=== PATIENT | male | born 1975 | race Caucasian/White ===

== ENCOUNTER → 2023-12-17 08:59 | Outpatient (REF) | payer OTHER, SELFPAY ==
[2023-12-17 12:06] LABS: % Basophils 0.6 % (0-2); % Eosinophils 1.3 % (0-6); % Immature Granulocytes 0.2 % (0-0.5); % Monocytes 7.5 % (1.7-9.3); % Neutrophils 69.4 % (42.2-75.2); Absolute Basophils 0.1 10^3/uL (0-0.2); Absolute Eosinophils 0.1 10^3/uL (0-0.7); Absolute Monocytes 0.7 10^3/uL (0.1-0.6); Absolute Neutrophils 6.7 10^3/uL (1.4-6.5); Hematocrit 48.4 % (39.0-52.0); Mean Corp Hgb Conc. 35.1 g/dL (33.0-37.0); Mean Corpuscular Hgb 31.7 pg (27.0-31.0); Mean Corpuscular Volume 90.3 fL (80.0-94.0); Mean Platelet Volume 9.7 fL (7.4-10.4); Nucleated Red Blood Cells % 0 % (-); Platelet Count 270 10^3/uL (130-400); Red Blood Cell Count 5.36 10^6/uL (4.70-6.10); Red Cell Dist. Width 11.9 % (11.5-14.5); White Blood Cell Count 9.6 10^3/uL (4.8-10.8)
[2023-12-17 12:21] LABS: ALT (SGPT) < 10 U/L (0-50); AST (SGOT) 24 U/L (17-59); Albumin 4.5 g/dl (3.5-5.0); Alkaline Phosphatase 154 U/L (38-126); Blood Urea Nitrogen 20 mg/dl (9-20); Calcium 10.1 mg/dl (8.4-10.2); Carbon Dioxide 25 mmol/L (22-30); Chloride 103 mmol/L (98-107); Glucose 193 mg/dl (70-99); HDL Cholesterol 36 mg/dl; Potassium 4.3 mmol/L (3.5-5.1); Sodium 139 mmol/L (135-145); Total Protein 7.3 g/dl (6.3-8.2); Triglyceride 138 mg/dl (10-149); Very Low Density Lipoprotein 27 mg/dl (0-30); eGFR > 60.00
[2023-12-17 12:23] LABS: Glycohemoglobin (HgbA1c) 8.2 % (4.0-5.6)
[2023-12-17 12:28] LABS: LDL Cholesterol, Calculated 15 mg/dl; Total Cholesterol 78 mg/dl (50-199)
[2023-12-17 12:47] LABS: TSH Reflex To Free T4 1.16 uIU/ml (0.47-4.68)
[2023-12-17 13:05] LABS: Vitamin B12 987 pg/ml (239-931)
== END ==
LOC: HWLAB 08:59
PROVIDERS: ATTENDING PHYSICIAN Internal Medicine Interventional Cardiology; FAMILY PHYSICIAN Family Medicine; REFERRING PHYSICIAN Nurse Practitioner Family
DX: E78.2 Mixed hyperlipidemia (principal); I25.10 Atherosclerotic heart disease of native coronary artery without angina pectoris; K76.0 Fatty (change of) liver, not elsewhere classified; G47.33 Obstructive sleep apnea (adult) (pediatric); E10.8 Type 1 diabetes mellitus with unspecified complications
CPT/HCPCS: 36415; 80053; 80061; 82607; 83036; 84443; 85025

== ENCOUNTER → 2024-07-22 08:56 | Outpatient (REF) | payer OTHER, SELFPAY ==
[2024-07-22 12:35] LABS: % Basophils 0.6 % (0-2); % Eosinophils 1.4 % (0-6); % Immature Granulocytes 0.4 % (0-0.5); % Lymphocytes 26.6 % (20.5-51.1); % Monocytes 8.3 % (1.7-9.3); % Neutrophils 62.7 % (42.2-75.2); Absolute Basophils 0.1 10^3/uL (0-0.2); Absolute Eosinophils 0.1 10^3/uL (0-0.7); Absolute Lymphocytes 2.1 10^3/uL (1.2-3.4); Absolute Monocytes 0.7 10^3/uL (0.1-0.6); Absolute Neutrophils 5.1 10^3/uL (1.4-6.5); Hematocrit 50.7 % (39.0-52.0); Hemoglobin 16.9 g/dL (13.0-18.0); Mean Corp Hgb Conc. 33.3 g/dL (33.0-37.0); Mean Corpuscular Hgb 31.1 pg (27.0-31.0); Mean Corpuscular Volume 93.2 fL (80.0-94.0); Mean Platelet Volume 9.8 fL (7.4-10.4); Nucleated Red Blood Cells % 0 % (-); Platelet Count 271 10^3/uL (130-400); Red Blood Cell Count 5.44 10^6/uL (4.70-6.10); White Blood Cell Count 8.1 10^3/uL (4.8-10.8)
[2024-07-22 12:40] LABS: ALT (SGPT) < 10 U/L (0-50); AST (SGOT) 22 U/L (17-59); Albumin 4.4 g/dl (3.5-5.0); Alkaline Phosphatase 141 U/L (38-126); Blood Urea Nitrogen 20 mg/dl (9-20); Calcium 9.4 mg/dl (8.4-10.2); Carbon Dioxide 28 mmol/L (22-30); Glucose 132 mg/dl (70-99); HDL Cholesterol 44 mg/dl; LDL Cholesterol, Calculated 50 mg/dl; Potassium 4.3 mmol/L (3.5-5.1); Sodium 140 mmol/L (135-145); Total Bilirubin 1.2 mg/dl (0.2-1.3); Total Cholesterol 117 mg/dl (50-199); Total Protein 7.2 g/dl (6.3-8.2); Triglyceride 119 mg/dl (10-149); Uric Acid 4.9 mg/dl (3.5-8.5); Very Low Density Lipoprotein 23 mg/dl (0-30); eGFR > 60.00
[2024-07-22 12:59] LABS: Vitamin D, 25-OH*** 31.8 ng/mL (30-80)
[2024-07-22 13:03] LABS: Glycohemoglobin (HgbA1c) 8.1 % (4.0-5.6)
[2024-07-22 13:07] LABS: Chloride 102 mmol/L (98-107)
[2024-07-22 13:12] LABS: TSH Reflex To Free T4 2.19 uIU/ml (0.47-4.68)
[2024-07-22 13:28] LABS: Microalbumin/creatinine Ratio 19.1 mg/g; Protein/creatinine Ratio 0.1; Urine Protein 7 mg/dl
[2024-07-22 23:18] LABS: IgA 135 mg/dl (70-400)
[2024-07-24 22:46] LABS: Endomysial IgA Antibody Titer <1:10 (<1:10)
== END ==
LOC: HWLAB 08:56
PROVIDERS: ATTENDING PHYSICIAN Nurse Practitioner Family; FAMILY PHYSICIAN Family Medicine; OTHER PHYSICIAN Internal Medicine Interventional Cardiology; REFERRING PHYSICIAN Physician Assistant
DX: E78.2 Mixed hyperlipidemia (principal); I25.10 Atherosclerotic heart disease of native coronary artery without angina pectoris; E55.9 Vitamin D deficiency, unspecified; K76.0 Fatty (change of) liver, not elsewhere classified; E10.8 Type 1 diabetes mellitus with unspecified complications; E10.65 Type 1 diabetes mellitus with hyperglycemia
CPT/HCPCS: 36415; 80053; 80061; 82043; 82306; 82570; 82784; 83036; 83516; 84156; 84443; 84550; 85025; 86231

== ENCOUNTER 2024-11-09 06:27 | Day surgery (SDC) | payer OTHER, SELFPAY ==
[2024-11-09 08:08] LABS: Glucose - Point of Care 184 mg/dl (70-99)
== END 2024-11-09 09:50 | disposition home or self-care (01) ==
LOC: GI 06:27
PROVIDERS: ATTENDING PHYSICIAN Internal Medicine Gastroenterology; FAMILY PHYSICIAN Family Medicine
DX: K22.4 Dyskinesia of esophagus (principal); K31.89 Other diseases of stomach and duodenum; K21.9 Gastro-esophageal reflux disease without esophagitis
CPT/HCPCS: 43239; 88305; 82962; 88342

== ENCOUNTER → 2024-12-16 09:07 | Outpatient (REF) | payer OTHER, SELFPAY ==
[2024-12-16 12:56] LABS: % Basophils 0.8 % (0-2); % Eosinophils 1.2 % (0-6); % Immature Granulocytes 0.2 % (0-0.5); % Lymphocytes 25.4 % (20.5-51.1); % Monocytes 8.1 % (1.7-9.3); % Neutrophils 64.3 % (42.2-75.2); Absolute Basophils 0.1 10^3/uL (0-0.2); Absolute Eosinophils 0.1 10^3/uL (0-0.7); Absolute Lymphocytes 2.3 10^3/uL (1.2-3.4); Absolute Monocytes 0.7 10^3/uL (0.1-0.6); Absolute Neutrophils 5.7 10^3/uL (1.4-6.5); Hematocrit 49.4 % (39.0-52.0); Mean Corp Hgb Conc. 34.4 g/dL (33.0-37.0); Mean Corpuscular Hgb 31.7 pg (27.0-31.0); Mean Corpuscular Volume 92.2 fL (80.0-94.0); Mean Platelet Volume 10.3 fL (7.4-10.4); Nucleated Red Blood Cells % 0 % (-); Platelet Count 260 10^3/uL (130-400); Red Blood Cell Count 5.36 10^6/uL (4.70-6.10); Red Cell Dist. Width 12.2 % (11.5-14.5); White Blood Cell Count 8.9 10^3/uL (4.8-10.8)
[2024-12-16 13:29] LABS: ALT (SGPT) < 10 U/L (0-50); AST (SGOT) 21 U/L (17-59); Albumin 4.4 g/dl (3.5-5.0); Alkaline Phosphatase 156 U/L (38-126); Blood Urea Nitrogen 19 mg/dl (9-20); Calcium 9.4 mg/dl (8.4-10.2); Carbon Dioxide 23 mmol/L (22-30); Chloride 109 mmol/L (98-107); Glucose 184 mg/dl (70-99); HDL Cholesterol 41 mg/dl; LDL Cholesterol, Calculated 35 mg/dl; Potassium 4.7 mmol/L (3.5-5.1); Sodium 141 mmol/L (135-145); Total Cholesterol 108 mg/dl (50-199); Total Protein 7.3 g/dl (6.3-8.2); Triglyceride 160 mg/dl (10-149); Uric Acid 4.9 mg/dl (3.5-8.5); Very Low Density Lipoprotein 32 mg/dl (0-30); eGFR > 60.00
[2024-12-16 13:40] LABS: Microalbumin, Random Urine 3.8 mg/dl (0.6-1.7)
[2024-12-16 13:41] LABS: Microalbumin/creatinine Ratio 14.5 mg/g; Urine Protein 9 mg/dl
[2024-12-16 14:08] LABS: Glycohemoglobin (HgbA1c) 8.2 % (4.0-5.6)
[2024-12-16 14:32] LABS: TSH 1.74 uIU/ml (0.47-4.68)
[2024-12-16 15:49] LABS: tTG IgA Antibody 6.7 EU/ml (0-19); tTG IgG Antibody 8.9 EU/ml (0-19)
[2024-12-16 23:23] LABS: IgA 162 mg/dl (70-400)
[2024-12-18 19:36] LABS: Lipoprotein a (Lp a) 121 mg/dL (<=29)
[2024-12-19 08:15] LABS: Endomysial IgA Antibody Titer <1:10 (<1:10)
== END ==
LOC: HWLAB 09:07
PROVIDERS: ATTENDING PHYSICIAN Physician Assistant; FAMILY PHYSICIAN Family Medicine; REFERRING PHYSICIAN Physician Assistant
DX: E10.65 Type 1 diabetes mellitus with hyperglycemia (principal); E78.2 Mixed hyperlipidemia; E10.8 Type 1 diabetes mellitus with unspecified complications; K21.9 Gastro-esophageal reflux disease without esophagitis; I10 Essential (primary) hypertension; K76.0 Fatty (change of) liver, not elsewhere classified; R63.2 Polyphagia
CPT/HCPCS: 36415; 80053; 80061; 82043; 82570; 82784; 83036; 83516; 83695; 83735; 84156; 84439; 84443; 84550; 85025; 86231

== ENCOUNTER 2025-03-05 12:22 | Emergency (ER) | payer OTHER, SELFPAY ==
[2025-03-05 12:33] VITALS: BP 160/86
[2025-03-05 12:57] LABS: Hematocrit 49.8 % (39.0-52.0); Hemoglobin 17.2 g/dL (13.0-18.0); Mean Corp Hgb Conc. 34.5 g/dL (33.0-37.0); Mean Corpuscular Volume 89.6 fL (80.0-94.0); Nucleated Red Blood Cells % 0 % (-); Platelet Count 243 10^3/uL (130-400); Red Cell Dist. Width 11.9 % (11.5-14.5)
[2025-03-05 13:14] LABS: ALT (SGPT) < 10 U/L (0-50); AST (SGOT) 19 U/L (17-59); Albumin 4.5 g/dl (3.5-5.0); Alkaline Phosphatase 147 U/L (38-126); Blood Urea Nitrogen 20 mg/dl (9-20); Calcium 9.8 mg/dl (8.4-10.2); Carbon Dioxide 23 mmol/L (22-30); Chloride 105 mmol/L (98-107); Glucose 217 mg/dl (70-99); Lipase 52 U/L (23-300); Potassium 4.8 mmol/L (3.5-5.1); Sodium 136 mmol/L (135-145); Total Protein 7.5 g/dl (6.3-8.2); eGFR > 60.00
[2025-03-05 13:26] LABS: Troponin I < 0.012 ng/ml
--- NOTE | 2025-03-05 13:37 | ED.GENMED ---
History of Present Illness
General
Chief Complaint: Chest Pain
Source: patient
Exam Limitations: none
Time Seen by Provider: 03/05/25 13:15
Nursing documentation reviewed up to this point in time: agreed with
History of Present Illness
History of Present Illness:
Note:
CHIEF COMPLAINT(S)
Pain in the left side of the chest.
HISTORY OF PRESENT ILLNESS
The patient is a 49-year-old male with a history of previous myocardial infarction who presents with pain in the left side of his chest. The chest pain began on Saturday night while he was eating pizza and watching [employer] fights. The patient describes
the pain as constant in nature. He mentioned taking a baby aspirin yesterday for the chest pain, along with his prescribed blood thinners and Plavix (clopidogrel). He has a history of stents placed in the vessels, specifically mentioning the
'widowmaker' artery and another adjacent vessel, with previous treatment at this facility.
The patient relates that when his initial heart attack occurred in November, he couldnt move due to the severity and was advised by cardiology over the phone to come in, which he did. Currently, the pain does not worsen with sitting up or deep breathing.
He suspects the pain may be musculoskeletal as he experienced nausea and vomiting after the chest pain onset, which occurred after eating a meal. The recent evaluation of his EKG and blood work, along with the physical exam, were more indicative of
a musculoskeletal origin, according to the findings so far.
MEDICATIONS
- Plavix (Clopidogrel)
- Blood thinners (unspecified)
PHYSICAL EXAM
General: Alert, no acute distress.
Skin: Warm, dry.
Head: Normocephalic, atraumatic.
Neck: Supple, trachea midline.
Eye, Ears, Nose, Mouth, and Throat: Oral mucosa moist.
Cardiovascular: Normal peripheral perfusion, No edema.
Respiratory: Respirations are non-labored.
Gastrointestinal: Abdomen nondistended.
Back: Normal range of motion, normal alignment.
Musculoskeletal: Normal range of motion, normal strength.
Neurological: Alert and oriented to person, place, time, and situation, no focal neurological deficit observed.
Psychiatric: Cooperative, appropriate mood and affect.
PLAN
- The patient will follow up with cardiology regarding his current symptoms and the management of his cardiac stents.
- Advised to return for further evaluation if the chest pain worsens, changes in nature, or if there is any concern about the symptoms being more consistent with cardiac origin.
DIFFERENTIAL DIAGNOSIS
The Differential Diagnosis includes, in no particular order and is not limited to:
- Musculoskeletal chest pain
- Gastroesophageal reflux disease (GERD)
- Angina pectoris
- Myocardial infarction
- Costochondritis
- Pulmonary embolism
- Aortic dissection
- Pneumothorax
- Pericarditis
- Esophageal spasm
CARE-UPDATE
03/05/25 - 13:49
Discharge planned as patient is stable, with no indication of acute coronary syndrome or pulmonary embolism. Pain is attributed to musculoskeletal causes. Troponin levels are normal and EKG shows no signs of ischemia after one week of symptoms.
Advised to follow up with cardiology and provided with appropriate sternum precautions.
EKG
My independent EKG interpretation is:
- Rhythm: Normal sinus rhythm
- Heart rate: 84 beats per minute
- Branch block: Red-level branch block, left-hand tersicular block
- [place] interval: Normal
- QT interval: Normal
- [place]: Normal
Disposition:
SUMMARY OF ENCOUNTER
The patient is a 49-year-old male with a history of myocardial infarction who presented to the emergency department with left-sided chest pain. The pain began after eating and was constant in nature. Following an evaluation including EKG and blood
work, findings were indicative of a musculoskeletal origin of the pain. The patient had recently taken a baby aspirin in addition to prescribed medications including clopidogrel and blood thinners. Given the absence of worsening symptoms with
sitting up or deep breathing, and following a reviewed EKG and troponin levels, the pain was not considered to be cardiac in nature.
DISPOSITION
Discharge.
ASSESSMENT
The patients chest pain is likely musculoskeletal in origin, consistent with recent activity and nausea following a meal.
PLAN
The patient is advised to follow up with cardiology regarding the current symptoms and management of cardiac stents. The patient is advised to return for further evaluation if the pain worsens or changes in nature.
INDEPENDENT REVIEW OF LABS AND INTERPRETATION OF TESTS
- My independent EKG interpretation is normal sinus rhythm, heart rate 84 beats per minute, left branch block, normal FL interval, normal QT interval, normal axis.
FOLLOW-UP INSTRUCTIONS
The patient is to follow up with cardiology for ongoing symptoms and management of cardiac stents.
MEDICATION RECONCILIATION
- Clopidogrel
- Blood thinners (unspecified)
- Baby aspirin taken by the patient
MEDICAL DECISION MAKING
- Number and Complexity of Problems Addressed: Chronic conditions affecting care include myocardial infarction history. Differential Diagnosis includes musculoskeletal chest pain, gastroesophageal reflux disease (GERD), angina pectoris, myocardial
infarction, costochondritis, pulmonary embolism, aortic dissection, pneumothorax, pericarditis, esophageal spasm.
- Data:
- Category 1: My independent interpretation of the EKG indicates no signs of ischemia.
- Risk: Prescription medication management considered but patient stable for discharge. Consideration of Admission/Observation: Escalation of care including admission/observation was considered given the complexity and risk of the patients
presenting complaint, exam findings, and/or their underlying comorbidities. However, ultimately I feel the patient is safe for outpatient management with close follow-up.
DIAGNOSIS
- chest pain
- History of myocardial infarction (ICD-10: I25.2)
Past History
Past History
ED Past Medical History: CAD, HTN and IDDM
ED Past Surgical History: Cardiac and Orthopedic
Social History
Tobacco: Non-smoker
Alcohol: Other
Drug: None
Personal:
Living: with family
Employment: Employed
Family History
Family History: Other
Phy Exam
Physical Exam
Physical Exam:
.
Scores
Heart Score for Chest Pain Patients
STEMI patient?: No
History: Slightly or Non-Suspicious
ECG: Normal
Age: >45 - <65 years
Risk Factors: >/= 3 Risk Factors or History of CAD
Troponin: </= Normal Limit
Heart Score for Chest Pain Patients: 3
Heart Score Risk: 2.5% MACE over next 6 weeks
Course
Orders/Labs/Results
Orders:
Orders
03/05/25 12:27
Electrocardiogram (*1) Urgent
Reason for Study: Chest Pain
EKG- Treatment ONCE
03/05/25 12:47
Complete Blood Count/With Diff Urgent
Comprehensive Metabolic Panel Urgent
Lipase Urgent
Troponin I Urgent
Abnormal Lab Results
03/05/25
12:47
Glucose 217 H mg/dl
(70-99)
Alkaline Phosphatase 147 H U/L
(38-126)
03/05/25 12:47
03/05/25 12:47
Vital Signs
Initial and Last Documented VS:
Initial Vital Signs
Temp Pulse Resp BP Pulse Ox
97.6 F 80 20 160/86 99
03/05/25 12:33 03/05/25 12:33 03/05/25 12:33 03/05/25 12:33 03/05/25 12:33
Last Documented Vital Signs
Temp Pulse Resp BP Pulse Ox
97.6 F 80 20 160/86 99
03/05/25 12:33 03/05/25 12:33 03/05/25 12:33 03/05/25 12:33 03/05/25 13:39
*Pulse Oximetry
SaO2: 99
Oxygen Mode of Delivery: Room air
Patient hypoxic: no
*Critical Care Note
Total Time (30-74mins, 75-104mins- exclusive of procedures): Not Applicable
ED Attending Note
-
Portions of this chart may have been created with voice recognition software.� Occasional wrong word or��sound alike� substitutions may have occurred due to the inherent limitations of voice recognition software.
Discharge Plan
Departure
Patient Disposition: Home (Routine Discharge)
Date of Disposition: 03/05/25
Time of Disposition: 13:50
Patient with high blood pressure during this ER visit?: Yes
Condition: Good
Discharge Problem:
Chest pain
Instructions: Chest Pain DCA Follow Up, BLOOD PRESSURE
Prescriptions:
No Action
atorvastatin 80 MG tablet
80 mg PO QPM Qty: 30 11RF
Rx Instructions:
Atorvastatin (Lipitor) replaces simvastatin (Zocor)
aspirin 81 MG tablet,chewable
81 mg PO DAILY 0RF
carvedilol 12.5 MG tablet
12.5 mg PO BID
clopidogrel 75 MG tablet
75 mg PO DAILY
cyanocobalamin (vitamin B-12) 1,000 MCG tablet
1,000 mcg PO DAILY
ezetimibe 10 MG tablet
10 mg PO DAILY
docosahexaenoic acid-epa 1 CAP capsule
1 cap PO DAILY
coenzyme [id number]-[id number] E 1 CAP capsule
200 mg PO DAILY
omeprazole 20 MG tablet,delayed release (DR/EC)
40 mg PO BID
Alirocumab [Praluent Pen] 75 MG/ML Pen.Injctr
75 mg SQ Q2W
Patient Comments:
EVERY 2 WEEKS ON SATURDAY
insulin regular hum U-500 conc [Humulin R U-500 (Conc) Kwikpen] 500 UNITS/ML insulin pen
0 units SC DIRECTED Qty: 0 0RF
Patient Comments:
insulin pump
Rx Instructions:
Basal rate 12 MN -3 Am- 0.05 units per hour, 3 AM t0 8 am 0.3 units/hr, 8 am to 3.30 pm 0.6 units/hr,3.30 pm to 9 pm 0.55 units/hr, 9pm to MN - 0.1 units/hr
Interventions
Interventions:
*Risk Screen - Suicide Last Done: 03/05/25 13:19
*General Assessment Last Done: 03/05/25 13:19
*Neglect/Abuse Screening Last Done: 03/05/25 13:19
*ED- Fall Risk Assessment Last Done: 03/05/25 13:19
*ED COVID-19 Vaccine History Last Done: 03/05/25 13:19
Discharge Date and Time
Print Language: ANDORRAN
== END 2025-03-05 14:22 | disposition home or self-care (01) ==
LOC: EMR 12:22
PROVIDERS: Emergency Medicine; EMERGENCY PHYSICIAN Emergency Medicine; FAMILY PHYSICIAN Family Medicine
DX: R07.89 Other chest pain (principal); I25.10 Atherosclerotic heart disease of native coronary artery without angina pectoris; E11.9 Type 2 diabetes mellitus without complications; I10 Essential (primary) hypertension; I25.2 Old myocardial infarction; Z79.4 Long term (current) use of insulin; Z95.5 Presence of coronary angioplasty implant and graft
CPT/HCPCS: 99284; 80053; 83690; 84484; 85025; 93005

== ENCOUNTER 2025-03-10 13:57 | Inpatient (IN) | payer OTHER, SELFPAY ==
[2025-03-10] VITALS (45 sets, daily range): BP systolic 91–167; BP diastolic 58–91; BMI 36.0
--- NOTE | 2025-03-10 10:20 | ED.GENMED ---
History of Present Illness
General
Chief Complaint: Chest Pain
Source: patient
Exam Limitations: none
Time Seen by Provider: 03/10/25 10:08
Nursing documentation reviewed up to this point in time: agreed with
History of Present Illness
History of Present Illness:
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 Chest pain described as pressure, with radiation to the back,
worse with exertion, improved with rest. Denies dizziness. Denies nausea. However, patient does report diaphoresis, although brief, yesterday with chest pain. Denies recent travel or surgery. Denies of leg pain or swelling. Denies recent
illness. Denies recent change in medications or diet. Patient does not smoke. Patient states that his blood sugar has been under control.
Past History
Past History
ED Past Medical History: CAD, HTN and IDDM
ED Past Surgical History: Cardiac and Orthopedic
Social History
Tobacco: Non-smoker
Alcohol: Other
Drug: None
Personal:
Living: with family
Employment: Employed
Family History
Family History: Other
Review of Systems
Review of Systems
Allergies reviewed?: Yes
All Other Systems: ROS reviewed and negative except as documented in HPI and ROS
Constitutional: Reports no symptoms
EENT: Reports no symptoms
Respiratory: Reports no symptoms
Cardiac: Reports chest pain and diaphoresis
ABD/GI: Reports no symptoms
: Reports no symptoms
Musculoskeletal: Reports no symptoms
Skin: Reports no symptoms
Neurological: Reports no symptoms
Phy Exam
Physical Exam
Physical Exam:
Physical Exam
General: no apparent distress, not acutely ill. afebrile
Head: nc/at. eomi
Neck: supple. no meningeal signs.
Heart: s1/s2 regular rate and rhythm
Lungs: no acute respiratory distress. clear bilaterally. chest wall nontender to palpation.
Abdomen: normal bowel sounds. not tender.
Neuro: alert and oriented x 3. no focal neurological deficits
Skin: no rash
Psychiatric: well kept. interactive and cooperative
Extremities: no edema. no calf tenderness.
Scores
Heart Score for Chest Pain Patients
STEMI patient?: No
History: Moderately Suspicious
ECG: Normal
Age: >45 - <65 years
Risk Factors: >/= 3 Risk Factors or History of CAD
Troponin: </= Normal Limit
Heart Score for Chest Pain Patients: 4
Heart Score Risk: 20.3% MACE over next 6 weeks
Course
Orders/Labs/Results
Orders:
Orders
03/10/25
Electrocardiogram (*1) Stat
Comment: DONE
03/10/25 Breakfast
NPO
Allow oral meds: Yes
Allow clear liquids: Sips of Clears
03/10/25 10:00
EKG [Electrocardiogram (*1)] Urgent
Reason for Study: Chest Pain
EKG- Treatment ONCE
03/10/25 10:16
Aspirin Chewable [Low Strength Aspirin] 243 mg PO NOW STA
Nitroglycerin Sublingual [Nitrostat (Sublingual)] 0.4 mg SL NOW STA
03/10/25 10:19
CR Chest Portable - 1 View Urgent
Comment:
Reason For Exam: chest pain
Reason Study Needs to be Portable: Patient Unstable
03/10/25 10:36
Complete Blood Count/With Diff Urgent
Hemoglobin A1c [Glycohemoglobin (HgbA1c)] Urgent
NT-proBNP Urgent
Troponin I Urgent
03/10/25 10:38
Nitroglycerin Sublingual [Nitrostat (Sublingual)] 0.4 mg SL NOW STA
03/10/25 10:45
Nitroglycerin 100 mg/250 ml [Nitroglycerin Premix] 100 mg in 250 ml IV PER PROTOCOL
Initial dose in mcg/min, then titrate:: 25
Titrate to keep:: Chest Pain Free
Titrate by mcg/min:: 5 mcg/min, may increase by 10 mcg/min if dose > 20 mcg/min
Frequency of titrations (minutes):: every 3-5 minutes
Maximum dose in mcg/min:: 200
Begin to taper infusion when:: Remained at goal for 2hrs
Taper by mcg/min:: 5 mcg/min
Frequency of taper (minutes) if patient maintains goal:: 30
Taper to off?: Yes
If infusion off & no longer maintaining goal:: Contact Provider
03/10/25 10:46
Heparin 4,000 units IV NOW STA
03/10/25 10:59
PTT Urgent
Comment: Obtain baseline before beginning heparin infusion if not already collected
03/10/25 11:00
Heparin 33322 Units/250 ml 25,000 units in 250 ml IV PER PROTOCOL
Weight to be used for heparin protocol in kilograms (kg):: 113.8
Protocol:: Cardiac Tx/Acute Coronary
PTT Goal Range to be used:: PTT 73 to 111 seconds
Order type:: Initial
INITIAL Infusion Dose (UNITS/KG/hr) & then follow protocol:: 12 units/kg/hr
Infusion Dose in UNITS/hr & then follow protocol (UNITS/hr):: 1,000
INFUSION RATE in mL/hr & then follow protocol (mL/hr):: 10
PTT less than or equal to 64 seconds:: Increase rate by 200 units/hr (+ 2 mL/hr)
PTT 64.1 to 72.9 seconds:: Increase rate by 100 units/hr (+ 1 mL/hr)
PTT 73 to 111 seconds:: Target Range. No change in rate.
PTT 111.1 to 130.9 seconds:: Decrease rate by 100 units/hr (- 1 mL/hr)
PTT 131 to 199.9 seconds:: HOLD for 1 hr. Then decrease rate by 200 units/hr (- 2 mL/hr)
PTT greater than or equal to 200 seconds:: HOLD for 2 hrs & Notify Provider. Then decrease by 200 units/hr (-
2 mL/hr)
Lab follow-up:: Each change, PTT q6h until 2 consecutive are therapeutic. Then PTT
daily.
03/10/25 11:07
Electrocardiogram (*1) Urgent
Reason for Study: Chest Pain
EKG- Treatment ONCE
03/10/25 11:25
Nitroglycerin Sublingual [Nitrostat (Sublingual)] 0.4 mg SL NOW STA
03/10/25 11:27
0.9% Sodium Chloride 250 ml [Nss] 250 ml IV BOLUS
03/10/25 11:39
Comprehensive Metabolic Panel Urgent
Magnesium Urgent
03/10/25 12:15
Nitroglycerin Sublingual [Nitrostat (Sublingual)] 0.4 mg SL NOW STA
03/10/25 13:35
Admit/Transfer Patient As Directed
Co-Sign Provider:
Level of Care: Inpatient admission
Assign to:: IVU
Physician / Group: juliana newton
Diagnosis: unstable angina
Reason for Hospitalization: unstable angina on hep gtt
Expected length of stay greater than two midnights?: Yes
ELOS- Estimated Length of Stay in days: 2
I certify the patient meets the requirements for IP care: Yes
PRN Pain Medication Management As Directed
May give lesser potent ordered pain med per pt: Yes
preference::
Protocol:: Medication orders for pain may be administered in a
manner that supports deferring to patient preference
when the pt is:
- Requesting an ordered lesser potent pain medication.
Least to most potent pain medications are defined
as: acetaminophen < NSAID < tramadol < opioids
(morphine, oxycodone, hydromorphone).
- Requesting a lesser dose of the same medication IF
ORDERED.
- Requesting a less intrusive route of administration
if both routes are prescribed by the provider (PO <
IV).
03/10/25 13:37
Code Status As Directed
Resuscitation Status: Full Code
03/10/25 13:41
Diabetes Management by Nurse Practitioner Routine
Consulting Provider: Rosina Mendiola
Was provider already notified?: Yes
Bedside Glucose Monitoring As Directed
Frequency: AC&HS
Additional Instructions:: Change to q6h if pt on TPN, tube feeding or not eating
03/10/25 13:43
EKG with chest pain [ECG as needed] As Directed
ECG as needed for:: Chest Pain
Rhythm Change
Other reason
Other reason for ECG as needed:: troponin elevation
03/10/25 13:47
Midazolam HCl [Versed] 2 mg .ROUTE .STK-MED ONE
Verapamil Injectable [Isoptin/Verapamil Injection] 5 mg .ROUTE .STK-MED ONE
03/10/25 13:48
Fentanyl Citrate/Pf [Sublimaze] 100 mcg .ROUTE .STK-MED ONE
Heparin 10,000 units .ROUTE .STK-MED ONE
Heparin 1000 Units/500 ml [Heparin] 1,000 units in 500 ml .ROUTE .STK-MED
Heparin Sodium,Porcine/Ns/Pf [Heparin 2000 Units/1000 ml] 2,000 unit in 1,000 ml .ROUTE .STK-MED
Lidocaine HCl/Pf [Xylocaine-Mpf 1% Vial] 100 mg .ROUTE .STK-MED ONE
Nitroglycerin [Tridil] 1,500 mcg .ROUTE .STK-MED ONE
03/10/25 13:55
Dextrose 50%-Water [Dextrose 50% Syringe] 12.5 grams IV NOW STA
03/10/25 15:07
Troponin I Q8H
03/10/25 15:45
Activity As Directed
Activity Level: As Tolerated
Vital Signs As Directed
Frequency: Per unit guidelines
03/10/25 16:08
Bisacodyl [Dulcolax] 10 mg RECTAL [id number] PRN
Dextrose 50%-Water [Dextrose 50% Syringe] 12.5 grams IV [id number] PRN
Docusate W/Senna [Senokot-S] 1 tablet PO BIDPRN PRN
Glucagon [GlucaGen] 1 mg IM PRN PRN
Polyethylene Glycol Powder [Miralax] 17 grams PO DAILYPRN PRN
03/10/25 16:30
Insulin Aspart Corrective Mod [Novolog Flexpen-Moderate Resistance] See Protocol SC AC
03/10/25 20:00
Pantoprazole [Protonix] 40 mg PO BID
03/11/25 02:09
Basic Metabolic Panel IN AM
Complete Blood Count/No Diff IN AM
03/11/25 08:00
Aspirin Chewable [Low Strength Aspirin] 81 mg PO DAILY
Atorvastatin [Lipitor] 80 mg PO DAILY
Clopidogrel Bisulfate [Plavix] 75 mg PO DAILY
Cyanocobalamin [Vitamin B-12] 1,000 mcg PO DAILY
Ezetimibe [Zetia] 10 mg PO DAILY
03/11/25 09:00
Echo 2D MMode Color/Doppler Routine
Reason for Study: unstable angina
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
03/12/25 06:00
Basic Metabolic Panel IN AM
Complete Blood Count/No Diff IN AM
03/13/25 06:00
Basic Metabolic Panel IN AM
Complete Blood Count/No Diff IN AM
03/14/25 06:00
Basic Metabolic Panel IN AM
Complete Blood Count/No Diff IN AM
03/15/25 06:00
Basic Metabolic Panel IN AM
Complete Blood Count/No Diff IN AM
03/16/25 06:00
Basic Metabolic Panel IN AM
Complete Blood Count/No Diff IN AM
Abnormal Lab Results
03/10/25 03/10/25 03/10/25
10:36 11:39 13:53
MCH 31.1 H pg
(27.0-31.0)
Absolute Monos (auto) 0.7 H 10^3/uL
(0.1-0.6)
BUN 25 H mg/dl
(9-20)
Glucose 120 H mg/dl
(70-99)
Hemoglobin A1c 7.8 H %
(4.0-5.6)
Alkaline Phosphatase 139 H U/L
(38-126)
POC Glucose 54 L* mg/dl
(70-99)
03/10/25 10:36
03/10/25 11:39
Vital Signs
Initial and Last Documented VS:
Initial Vital Signs
Temp Pulse Resp BP Pulse Ox
97.6 F 84 18 159/91 98
03/10/25 10:06 03/10/25 10:06 03/10/25 10:06 03/10/25 10:06 03/10/25 10:06
Last Documented Vital Signs
Temp Pulse Resp BP Pulse Ox
97.8 F 91 20 124/83 97
03/11/25 07:09 03/11/25 08:15 03/11/25 07:09 03/11/25 08:00 03/11/25 07:09
MDM/Problems Addressed
MDM/Problems Addressed:
History and exam concerning for unstable angina. Patient given 2043 mg of aspirin, as 81 mg aspirin taken at home earlier today. In addition, patient given 0.4 mg sublingual nitroglycerin x 2, with near resolution of chest pain. As such, patient
will be started on nitroglycerin infusion, along with heparin protocol. In addition, second EKG obtained after administration of first nitroglycerin tablet, which reveals nonspecific ST changes, when compared to first EKG. Discussed the EKG
changes with on-call arresting gear operator, , who does not feel that changes are definitive for STEMI at this time. As such, recommend continual medical treatment via nitroglycerin infusion and heparin protocol. Plan to proceed to [facility] later
today, unless there are clinical changes or there is significant elevation in troponin.
Critical care statement: A total of 40 minutes of critical care time was provided for this patient. This includes management of unstable vital signs, evaluation of the patient at bedside, reviewing the patient's pertinent medical records, discussion
with consultants, review of old EKGs and review of pertinent medical records. This time with separate from time utilized to perform the aforementioned documented procedures
*Pulse Oximetry
SaO2: 98
Oxygen Mode of Delivery: Room air
Patient hypoxic: no
*EKG
Interpreted by ED Provider?: Yes
EKG Intrepretation Date: 03/10/25
Heart Rate: 86
Rate: normal
Rhythm: sinus
[place]: normal axis
QRS Pattern: right bundle branch block
*Critical Care Note
Total Time (30-74mins, 75-104mins- exclusive of procedures): 40 min
ED Attending Note
-
Portions of this chart may have been created with voice recognition software.� Occasional wrong word or��sound alike� substitutions may have occurred due to the inherent limitations of voice recognition software.
Discharge Plan
Departure
Patient Disposition: Admit
Date of Disposition: 03/10/25
Time of Disposition: 11:27
Admit to: Telemetry
Presentation/result/management discussed w/ accepting MD/DO: Hospitalist
Discharge Problem:
Unstable angina
Interventions
Interventions:
*Risk Screen - Suicide Last Done: 03/10/25 10:06
*General Assessment Last Done: 03/10/25 10:06
*Neglect/Abuse Screening Last Done: 03/10/25 10:06
*ED- Fall Risk Assessment Last Done: 03/10/25 10:18
*ED COVID-19 Vaccine History Last Done: 03/10/25 10:18
*Nursing Disposition Last Done: 03/10/25 14:25
ED- Cardiac Assessment Last Done: 03/10/25 10:18
Discharge Date and Time
Discharge Date/Time: 03/10/25 14:26
[2025-03-10] MEDS: LOW STRENGTH ASPIRIN 243 MG PO (10:30)
[2025-03-10] MEDS: NITROSTAT (SUBLINGUAL) 0.4 MG SL ×4 (10:30→12:19)
--- NOTE | 2025-03-10 10:30 | EDRN ---
Patient medciated with ASA 243 mg PO and NTG SLx1. Patient stated that the pressure in his chest is 5 out of 10.
--- NOTE | 2025-03-10 10:39 | EDRN ---
Patient stated that his chest pressure is now 2 out of 10. Patient medicated with NTG SLx1.
[2025-03-10 10:50] LABS: Hematocrit 51.6 % (39.0-52.0); Hemoglobin 17.7 g/dL (13.0-18.0); Mean Corp Hgb Conc. 34.3 g/dL (33.0-37.0); Mean Corpuscular Volume 90.7 fL (80.0-94.0); Nucleated Red Blood Cells % 0 % (-); Platelet Count 237 10^3/uL (130-400); Red Cell Dist. Width 11.9 % (11.5-14.5)
[2025-03-10] MEDS: NITROGLYCERIN PREMIX 250 IV (10:57)
[2025-03-10] MEDS: HEPARIN 4000 UNITS IV (11:08)
[2025-03-10] MEDS: HEPARIN 25000 UNITS/250 ML IV (11:09)
[2025-03-10 11:16] LABS: Glycohemoglobin (HgbA1c) 7.8 % (4.0-5.6)
[2025-03-10 11:23] LABS: Troponin I < 0.012 ng/ml
[2025-03-10] MEDS: NSS 250 IV (11:29)
[2025-03-10 11:42] LABS: APTT 27.6 Sec (23.4-35.0)
[2025-03-10 12:11] LABS: ALT (SGPT) < 10 U/L (0-50); AST (SGOT) 24 U/L (17-59); Albumin 4.3 g/dl (3.5-5.0); Alkaline Phosphatase 139 U/L (38-126); Blood Urea Nitrogen 25 mg/dl (9-20); Calcium 9.1 mg/dl (8.4-10.2); Carbon Dioxide 25 mmol/L (22-30); Chloride 107 mmol/L (98-107); Estimated Creatinine Clearance 110 ml/min; Glucose 120 mg/dl (70-99); Magnesium 2.0 mg/dl (1.6-2.3); Potassium 4.4 mmol/L (3.5-5.1); Sodium 140 mmol/L (135-145); Total Protein 7.2 g/dl (6.3-8.2); eGFR > 60.00
--- NOTE | 2025-03-10 12:47 | W.PN.CARDCBS ---
Addendum entered and electronically signed by Charmaine Weeks MD 03/10/25 16:48:
I saw and examined the patient.
The Rewriter's note was reviewed and I agree with the note.
Comment: Briefly patient is a 49-year-old gentleman with past medical history of hypertension, hyperlipidemia, poorly controlled type 2 diabetes mellitus, GERD, coronary artery disease status post MO with PCI to ramus intermedius artery with
thrombus embolization into the apical LAD status post PCI to both in November 2018 who is being sent over from his outpatient clin nurse's office due to concern for possible unstable angina. Patient has been off-and-on having symptoms since Saturday
with ongoing rest pain over the last 2 to 3 days without resolution. It has progressed to the point where he has not been able to walk around without getting short of breath more than a block. In the emergency room given ongoing chest pain he was
initiated on nitroglycerin drip resulting in hypotension and worsening chest discomfort. In the setting the nitroglycerin drip was discontinued and patient was brought up to the heart catheterization lab more urgently. He was given full dose
aspirin as well as IV unfractionated heparin in the emergency room. Initial troponin was negative at less than 0.012, repeat troponin was pending at the time of heart catheterization
On exam patient is morbidly obese, otherwise well-appearing in no acute distress, awake, alert and oriented x 3, normal carotid upstroke, no carotid bruit, no JVD, lungs are clear to auscultation bilaterally, regular rate, normal S1 and S2, no
murmurs rubs or gallops, abdomen is obese, soft, nontender, nondistended with active bowel sounds, warm extremities without significant edema
Recommendations:
1. Given concern for ACS, we discussed risks and benefits of heart catheterization and patient is agreeable to move forward urgently given ongoing symptoms. It is perplexing that despite ongoing CP for hours, his initial troponin is negative.
2. ACS medical therapy with ASA, high intensity statin and BB as tolerated.
3. Full echo to assess biventricular function.
4. Further recommendations based on findings on cath.
Charmaine Weeks MD, FAC, [facility]
Original Note:
Today's Communication / Plan
-
continue asa, plavix, IV heparin
cardiac cath later today vs in AM
trend trops
Impression / Plan
-
Please refer to office note dated 03/10/25
Primary Senior Information Security Engineer: Dr. Robertson
Assessment:
Progressive chest pain
Concern for USA
Negative trop x1
CAD s/p MO with ramus PCI with thrombus embolizing into apical LAD s/p PCI 11/2018
HTN
HLD
DM, poorly controlled
GERD
ECHO 02/05/22: EF 60-65%, mild cLVH, trace MR, aortic sclerosis, trace TR
Plan:
-Patient had ER visit 03/05/25 for CP and was discharged as work up was negative. He then presented to office for follow up today and complained of symptoms concerning for crescendo angina over the last 10 days with progression. He reports on Saturday
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 Then today with walking up 10 steps he had significant discomfort and therefore was referred to ER for admission and
coronary angiography. He reports some minor chest burning at present. Reports pain was improved with SL nitro. He was on IV nitro gtt for a time however developed headache and this was stopped with improvement. Has history of GERD however reports
this is different from his GERD discomfort. Initial trop negative
-trend trops
-EKG SR/ST with RBBB, follow
-continue asa, plavix, IV heparin
-SL nitro PRN
-for cardiac cath later today vs in AM pending patient symptoms and animal laboratory helper schedule
-check CVE. continue OP lipitor, zetia.
-last echo from 2021 as above
-on mounjaro as OP, hold
-check hgbA1c. diabetes mgmt per primary service
-d/w patient and mother at bedside
Progress Note - Senior Information Security Engineer
Subjective
Date of Service: March 10, 2025
reports some mild burning over focal area of L chest
Objective
Labs:
03/10/25 10:36
03/10/25 11:39
Labs
Hgb 17.7 g/dL (13.0-18.0) 03/10/25 10:36
Hct 51.6 % (39.0-52.0) 03/10/25 10:36
Plt Count 237 10^3/uL (130-400) 03/10/25 10:36
APTT 27.6 Sec (23.4-35.0) 03/10/25 10:59
Sodium 140 mmol/L (135-145) 03/10/25 11:39
Potassium 4.4 mmol/L (3.5-5.1) 03/10/25 11:39
BUN 25 mg/dl (9-20) H 03/10/25 11:39
Creatinine 1.0 mg/dL (0.7-1.3) 03/10/25 11:39
Glucose 120 mg/dl (70-99) H 03/10/25 11:39
Troponins
03/10/25
10:36
Troponin I < 0.012
Vital Signs and I&O:
Vital Signs
Temp Pulse Resp BP Pulse Ox
97.6 F 102 18 109/79 94
03/10/25 10:06 03/10/25 11:26 03/10/25 11:00 03/10/25 12:19 03/10/25 11:00
Vital Signs
Temp Pulse Resp BP Pulse Ox
97.6 F 102 18 109/79 94
03/10/25 10:06 03/10/25 11:26 03/10/25 11:00 03/10/25 12:19 03/10/25 11:00
Physical Exam
Physical Exam
GEN: No distress, awake, alert, oriented x3
HEENT: supple, anicteric, mmm, eomi
LUNGS: CTA B/L, no wheezes/rales
CV: Reg, S1/S2, no murmur
ABD: soft, BS+, NT/ND
EXT: No cyanosis, clubbing, edema
NEURO: Gross non-focal
SKIN: Warm, pink, dry. No rash
--- NOTE | 2025-03-10 13:45 | HPS.HSE ---
Family Physician
-
Family Physician: Sari Deleon
Chief Complaint
-
unstable angina
History of Present Illness
49 male history of CAD s/p PCI in 2019, hypertension hyperlipidemia diabetes who presents with 1 week history of ongoing chest discomfort that initially started as nausea however over the past week has progressed to left-sided pressure discomfort
that radiated to the shoulder intermittently last for approximately 15 minutes and improves with rest. Worst chest discomfort he experienced was when climbing up 1 flight of stairs. Was seen in the ER 5 days previously with negative troponin
nonischemic EKG discharged home with recommendations to discuss case with dairy farm supervisor. Therefore he saw his primary dairy farm supervisor earlier today who recommended admit to the hospital for further investigation with [facility]
Never smoker does not drink alcohol no drug use history
Had a polyp on his larynx removed when he was a child, fifth metatarsal prepared
Medical History
Past Medical History
Past Medical History: Reports CAD, GERD, HTN, Hypercholesterolemia and IDDM
Past Surgical History: Reports Cardiac
Social History
Tobacco: Non-smoker
Alcohol: None
Drug: None
Employment: Employed
Family History
Family History: Not pertinent
Allergies / Home Medications
Allergies reflects when Allergies were last updated in [facility].
Home Medications with original date entered in [facility]
Allergy/Medication List:
Allergies
Allergy/AdvReac Type Severity Reaction Status Date / Time
No Known Allergies Allergy Verified 03/10/25 10:06
Home Medications
clopidogrel 75 mg tablet 75 mg PO DAILY Blood clot prevention/tx 12/29/21
cyanocobalamin (vitamin B-12) 1,000 mcg tablet 1,000 mcg PO DAILY Supplement 12/29/21
ezetimibe 10 mg tablet 10 mg PO DAILY High cholesterol 12/29/21
omeprazole 20 mg tablet,delayed release 40 mg PO BID Gastrointestinal Issue 12/30/21
alirocumab 75 mg/mL subcutaneous pen injector (Praluent Pen) 75 mg SC Q14D High Cholesterol ##0 12/31/21
Patient Own Insulin Pump 1 sliding scale dose SC .VIA FIASP Diabetes 03/10/25
aspirin 81 mg chewable tablet 81 mg PO DAILY Blood Clot Prevention/Tx 03/10/25
atorvastatin 80 mg tablet 80 mg PO DAILY High Cholesterol 03/10/25
losartan 50 mg tablet 50 mg PO DAILY Blood Pressure 03/10/25
tirzepatide 10 mg/0.5 mL subcutaneous pen injector (Mounjaro) 10 mg SC TU endocrine 03/10/25
Review of Systems
-
A 12 point ROS was completed and negative except as noted: Yes
Physical Exam
Vital Signs
Vital Signs
Temp Pulse Resp BP Pulse Ox
97.6 F 102 18 118/64 94
03/10/25 10:06 03/10/25 11:26 03/10/25 11:00 03/10/25 12:24 03/10/25 11:00
Physical Exam
General: Well Developed and Well Nourished
Laboratory Results
-
03/10/25 10:36
03/10/25 11:39
Laboratory Results
APTT 27.6 Sec (23.4-35.0) 03/10/25 10:59
Total Bilirubin 0.8 mg/dl (0.2-1.3) 03/10/25 11:39
AST 24 U/L (17-59) 03/10/25 11:39
ALT < 10 U/L (0-50) 03/10/25 11:39
Alkaline Phosphatase 139 U/L (38-126) H 03/10/25 11:39
Troponin I < 0.012 ng/ml 03/10/25 10:36
Impression/Plan
-
NAD
Scleral Anicteric
MMM
No JVD
CTABL
RRR, S1/S2
Obese, soft, NT, ND, BS+
Warm, Dry
AAOx3
Calm
Unstable angina
Started on heparin drip
Trend troponin
Repeat EKG with chest discomfort
Continue nitroglycerin drip
Cardiology consulted
2D echocardiogram
N.p.o.
Plan for LHC
CAD s/p PCI x 2
Continue DAPT and statin
Continue q. 14-day PCSK9i
Continue zetia
HTN
Ntg gtt for preload reduction
Hold ACEi for now
IDDM
Accuchecks
BG 140-180
CCDiet when able to eat
Continue long and short acting insulin
Last a1c 8.1
Hold glp1 antagonist
Gerd
Continue ppi
[2025-03-10 13:55] LABS: Glucose - Point of Care 54 mg/dl (70-99)
[2025-03-10] MEDS: DEXTROSE 50% SYRINGE 12.5 GRAMS IV (13:58)
--- NOTE | 2025-03-10 14:41 | CM ---
C reviewed chart and met with pt bedside in ED. Lives with his , 2 story home, 2 DEDRA, has first floor half BA, second floor BR/full BA.
Independent in ADLs, personal care and ambulation at baseline. Still working, drives. Has insulin pump and Dexcom.
Confirms prescription coverage.
PCP: Sari Deleon
Pharmacy: [facility] in [facility]
CM will continue to follow for any discharge planning needs.
[2025-03-10 15:07] LABS: Glucose - Point of Care 75 mg/dl (70-99)
[2025-03-10 15:42] LABS: Troponin I 0.014 ng/ml
--- NOTE | 2025-03-10 16:16 | ITS.CL.CATH ---
Surveying Teacher - Catheterization
Cardiac Catheterization
Procedure Report:
LEFT HEART CATHETERIZATION
Date of Procedure: March 10, 2025
Referring: Brian Robertson M.D.
PROCEDURES:
1. Left heart catheterization, coronary angiogram.
2. Moderate sedation.
INDICATION: Concern for Unstable angina
ACCESS: 1. Right radial artery, 6Fr. sheath, under US guidance. Given we could not successfully advance sheath farther than the forearm due to being in a branch vessel this access was aborted.
2. Right common femoral artery, 6 Libyan sheath, under ultrasound-guided
HEMODYNAMICS : (mmHg)
AO (s/d) : 119/84
LVEDP : 18
No significant gradient across the aortic valve to suggest aortic stenosis.
CORONARY FINDINGS
Dominance: Right
Left Main Trunk (LMT): Large caliber vessel that gives rise to the LAD, RI and LCx branches and is free of angiographic disease.
Left Anterior Descending Artery (LAD): Large caliber vessel that gives off 2 major diagonal branches as it courses along the anterior inter-ventricular groove before wrapping around the cardiac apex. The D1 is a large caliber vessel with 80%
ostial stenosis and D2 is a moderate caliber vessel with 70% ostial stenosis. There is ISABELLE-3 flow into the diagonal vessels. Apical LAD has 50 to 60% stenosis proximal to previously placed stent which is widely patent
Ramus Intermedius (RI): The ramus intermedius branch is a large-caliber vessel with mild luminal irregularities. Previously placed ostial to proximal ramus intermedius that is widely patent
Left Circumflex Artery (LCx): Large caliber vessel that gives off 2 major obtuse marginal (OM) branches as it courses along the atrio-ventricular (AV) groove.. There is 40 to 50% proximal stenosis.
Right Coronary Artery (RCA): Large caliber dominant vessel that gives rise to the posterior descending artery (RPDA) and postero-lateral ventricular (RPLV) branches distally. There is mild diffuse atherosclerotic plaque within the RCA. Ostial PL
branch has a 70% stenosis with ISABELLE-3 flow into the distal vessel. RPDA is a medium caliber vessel with ostial 60 to 70% stenosis and 70% stenosis in the midportion which angiographically appears stable compared to prior cath from 2019.
SEDATION: 47 minutes of procedural sedation was utilized. IV Midazolam and IV Fentanyl were administered. An independent medical radiation therapist was present to assist with and help manage the patient's level of consciousness and physiologic status.
Femoral angiography: Femoral arteriotomy is noted to be above the bifurcation and below the inferior epigastric artery. There is minimal luminal irregularities in the visualized external iliac and femoral vessels.
Closure Device: There were no immediate intra-procedural complications. The sheath was pulled in the metallurgy laboratory technician and a vascular-band applied to the right wrist for radial artery hemostasis using the patent hemostasis technique.
CONCLUSIONS
1. D1 is a large-caliber vessel with 80% ostial stenosis with ISABELLE-3 flow into the distal vessel.
2 . Previously placed ramus intermedius stent and apical LAD stents are widely patent.
3. Stable RPDA disease.
RECOMMENDATIONS
1. Wean radial band per protocol. Monitor right hand perfusion and for bleeding from the radial site following removal of the vascular-band following trans-radial access. Bedrest per protocol.
2. Continue aggressive medical therapy and risk factor modification for secondary CAD prevention. Aggressive titration of antianginal therapies.
3. If patient has persistent symptoms despite maximally tolerated antianginal therapy, could consider high risk intervention to ostial D1 at the potential risk of plaque shift into the LAD requiring bifurcational stenting adding to the complexity
of the procedure.
4. Full echocardiogram to assess biventricular function.
5. Outpatient referral for cardiac rehab
Charmaine Weeks MD, [facility], [facility]
Copy to: Brian Robertson M.D.
[2025-03-10] MEDS: NSS 1000 IV (17:07)
[2025-03-10] MEDS: TOPROL XL 25 MG PO (17:08)
[2025-03-10 17:10] LABS: Glucose - Point of Care 53 mg/dl (70-99)
[2025-03-10 17:41] LABS: Glucose - Point of Care 47 mg/dl (70-99)
[2025-03-10 17:45] LABS: Glucose - Point of Care 50 mg/dl (70-99)
--- NOTE | 2025-03-10 18:15 | W.PN.UPDATE ---
Addendum entered and electronically signed by Estefany Santana MD 03/10/25 18:28:
Patient is a type I diabetic
Insulin pump settings
1.23 units/hr 12 noon to 2100
0.4 units/hr 20 100-12 midnight
0.14 units/hr midnight to 3 AM
1.2 units/hr 3 AM to 12 noon

Total 28.2 units
If blood sugar is more than 100 or more by 10 PM give 10 units of Lantus insulin ( Lower dose due to Hypoglycemia). Assess for restarting Pump tomorrow.
Original Note:
Update Note
Progress Note Update
Hypoglycemic with insulin pump
Disconnect insulin pump
Continue Accu-Cheks and sliding scale coverage for now
If the sugars are more than 100 at night we will give a low-dose of Lantus insulin
[2025-03-10 18:19] LABS: Glucose - Point of Care 51 mg/dl (70-99)
--- NOTE | 2025-03-10 18:23 | PTCARENOTE ---
Patient returned from the aquatic life laborer at 1610 after [facility]. Right wrist radial band in place, pulse ox 95% on the right hand with a palpable radial pulse. Removing air from the band as per protocol now. Patient lying flat in bed, dressing right groin is
dry and intact with a strong right pedal pulse. Patient is AAO and oriented to the plan of care and post cath restrictions. Monitoring accu checks which have been in the 50's, following the hypoglycemic protocol with OJ and repeat accu checks.
Instructed the patient to turn off his insulin pump, however accu checks have remained low. TT to house coverage Dr. Santana, TT her the patient's settings of his pump and his pump was removed as she requested. Patient eating dinner now, call piper
in reach.
[2025-03-10 18:44] LABS: Glucose - Point of Care 59 mg/dl (70-99)
[2025-03-10] MEDS: PROTONIX 40 MG PO (19:30)
[2025-03-10 19:34] LABS: Glucose - Point of Care 80 mg/dl (70-99)
[2025-03-10 21:45] LABS: Glucose - Point of Care 164 mg/dl (70-99)
[2025-03-10] MEDS: NITRO-BID 0.5 INCH TOPICAL ×2 (21:52→23:57)
--- NOTE | 2025-03-10 21:56 | W.PN.UPDATE ---
Update Note
Progress Note Update
-came in @ 9:20 pm to evaluate R groin oozing. BP 167/80, nsr 93 bpm, pOx 96 on RA. Pt is comfortable, conversant, has lots of questions. His and kids are at bedside. Pt has no CP, denies any dizziness or pain in the groin/abdomen or back. He
gets on and off chest pressure that lasts about 3 min and resolves spontaneously. He has no CP currently. Pt got 25 mg of Toprol at 5 pm.
-nurse held manual pressure over R groin from 9:10 pm to 9:35 pm. Groin is soft, nontender, no hematoma, clean, dry, intact. It was dressed with Innoseal and tegaderm. Will put sandbag on for an hour. DPs are 2+ b/l. Will start Nitro paste for
better pressure control and intermittent CP. Tomorrow can switch to Imdur and likely restart Losartan. Put on 2L O2 for comfort. Will keep on bedrest for a few hrs.
-will continue to monitor closely.
--- NOTE | 2025-03-10 23:30 | PTCARENOTE ---
Received patient at change of shift. SR with a BBB on the monitor, HR in the 80s. R radial and R groin dressings intact at change of shift. Blood sugar 80 at 19:30 and 164 at 21:30.
Patient rang call piper at 21:10 to get OOB to bathroom. Groin checked before ambulating and dressing was saturated with blood. Pressure held for 25 mins as per ARTIS Kirkpatrick. Redressed with hemostasis pad. Hypertensive 160s/80s, and 1/10 chest
pressure. Nitropaste ordered and administered as per order, see documentation. Sandbag on groin x1. Pt remains on bedrest. R groin now CDI, soft.
[2025-03-10 23:40] LABS: Glucose - Point of Care 257 mg/dl (70-99)
[2025-03-10] MEDS: LANTUS 0.1 UNITS SC (23:56)
[2025-03-11] VITALS (23 sets, daily range): BP systolic 93–160; BP diastolic 52–99; BMI 35.3
[2025-03-11 02:08] LABS: Glucose - Point of Care 334 mg/dl (70-99)
[2025-03-11] MEDS: NOVOLOG FLEXPEN 5 UNITS SC (02:17)
[2025-03-11] MEDS: TUMS EX (EXTRA STRENGTH) CHEWABLE TABLET 300 MG PO (02:18)
--- NOTE | 2025-03-11 02:27 | PTCARENOTE ---
Patient rang call piper at 0200 feeling nauseous. Sitting up and dry heaving. ARTIS Kirkpatrick notified. Blood sugar 334, 5 units insulin and Tums administered as per order see MAR. Sherrill powell CDI, soft. Patient no longer nauseous and resting in bed.
[2025-03-11 02:44] LABS: Hematocrit 48.2 % (39.0-52.0); Hemoglobin 16.4 g/dL (13.0-18.0); Mean Corp Hgb Conc. 34.0 g/dL (33.0-37.0); Mean Corpuscular Volume 92.7 fL (80.0-94.0); Platelet Count 238 10^3/uL (130-400); Red Cell Dist. Width 11.9 % (11.5-14.5)
[2025-03-11 03:11] LABS: Blood Urea Nitrogen 20 mg/dl (9-20); Calcium 9.0 mg/dl (8.4-10.2); Carbon Dioxide 20 mmol/L (22-30); Chloride 106 mmol/L (98-107); Estimated Creatinine Clearance 123 ml/min; Glucose 334 mg/dl (70-99); HDL Cholesterol 41 mg/dl; LDL Cholesterol, Calculated 21 mg/dl; Potassium 5.3 mmol/L (3.5-5.1); Sodium 137 mmol/L (135-145); Very Low Density Lipoprotein 21 mg/dl (0-30); eGFR > 60.00
[2025-03-11 03:21] LABS: Glucose - Point of Care 298 mg/dl (70-99)
[2025-03-11] MEDS: NOVOLOG FLEXPEN 3 UNITS SC (03:47)
[2025-03-11 04:52] LABS: Glucose - Point of Care 310 mg/dl (70-99)
[2025-03-11] MEDS: NITRO-BID 0.5 INCH TOPICAL (06:10)
[2025-03-11 06:11] LABS: Glucose - Point of Care 313 mg/dl (70-99)
[2025-03-11] MEDS: LOW STRENGTH ASPIRIN 81 MG PO (09:20)
[2025-03-11] MEDS: LIPITOR 80 MG PO (09:20)
[2025-03-11] MEDS: PLAVIX 75 MG PO (09:20)
[2025-03-11] MEDS: PROTONIX 40 MG PO ×2 (09:20→19:19)
[2025-03-11] MEDS: ZETIA 10 MG PO (09:21)
[2025-03-11] MEDS: TOPROL XL 25 MG PO (09:21)
[2025-03-11] MEDS: VITAMIN B-12 1000 MCG PO (09:21)
[2025-03-11] MEDS: FLUSH (NSS) 2 FLUSH IV (09:22)
--- NOTE | 2025-03-11 09:49 | PTCARENOTE ---
Received patient resting in bed this morning. Right groin dressing and right wrist dressing are dry and intact. Denies any chest pain, upset over elevated accu checks during the night. Diabetic COLD MILL INSPECTOR in to see the patient, patient able to get another
insulin pump from home and it was replaced to the R abd. Setting reviewed and adjusted by Dione Asencio and will follow insulin pump protocol. Patient assisted oob to the chair to eat breakfast, no further bleeding from the right groin, call piper in
reach.
[2025-03-11] MEDS: PT'S OWN INSULIN PUMP - NovoLOG 15.65 UNIT SC (10:00)
--- NOTE | 2025-03-11 10:16 | PN.DE.MGMTRT ---
Addendum entered and electronically signed by Soheila Asencio NP 03/11/25 10:26:
Pod settings as follows:
12am .15 Carb ratio 4 Sensitivity 15
3am 1.2
8am 2.70
3:30 time changed to 2:30 1.75Due to hypoglycemia from 13:35 to 18:43
9pm .4
24 hour basal total 36.55
Original Note:
Insulin Management
- -
03/11/2025 Diabetes Management Consult
Patient admitted 03/10 with chest pain. PMH CAD with 2 previous stents, HTN, diabetes. Prior to admission was using the OmniPod 5 with DexCom G 6 and Fiasp insulin. A1C on admission 7.8%, cr. .9, eGFR > 60.
On admission glucose was 120, patient continued his insulin pump. Glucose trended down to 54 @ 13:35 and continued down to 49 @ 17:39, remained < 59 till 18:43. Pod was removed. Glucose up to 334.
Fasting glucose today 313. Family brought Pod and insulin from home. At 9:30 pod was resumed. Glucose was > 350 at that time. Patient programmed pod for 35 grams of carbohydrate and was NOT familiar with using the sensor BG to correct. He
states in 2 years he never knew that thats what that was and how to use it. Instructed patient that if he only took insulin for his food his glucose would remain > 350. He states: that make sense. Instructed patient when bolusing for a meal to
ALWAYS utilize the correction feature. Patient to use pod for all boluses for meals and corrections.
Discussed with nurse.
Will follow.
Diabetes History
- -
Type of Diabetes: 2 requiring insulin
Pre-Admission Diabetes Regimen
03/10/25 03/10/25 03/11/25
10:36 11:39 02:09
Creatinine Cancelled 1.0 0.9
Lab Results
Hemoglobin A1c 7.8 % (4.0-5.6) H 03/10/25 10:36
Insulin Pump Settings
IP Diabetes Regimen
03/10/25 03/10/25 03/10/25
10:36 11:39 13:53
Glucose Cancelled 120 H
POC Glucose 54 L*
03/10/25 03/10/25 03/10/25
14:56 17:09 17:39
Glucose
POC Glucose 75 53 L* 47 L*
03/10/25 03/10/25 03/10/25
17:44 18:18 18:43
Glucose
POC Glucose 50 L* 51 L* 59 L
03/10/25 03/10/25 03/10/25
19:33 21:43 23:39
Glucose
POC Glucose 80 164 H 257 H
03/11/25 03/11/25 03/11/25
02:07 02:09 03:20
Glucose 334 H
POC Glucose 334 H 298 H
03/11/25 03/11/25
04:50 06:10
Glucose
POC Glucose 310 H 313 H
Meal type: Dinner
Amount consumed: 100%
Patient Education
--- NOTE | 2025-03-11 10:21 | CARDSERVLU ---
Echocardiogram with Lumason completed after protocol screening completed. Allergies verified.
Patent IV site: _L AC____
IV site flushed with 0.9% NaCl pre and post administration.
Diluted bolus method utilized to enhance visualization of ventricular parr.
Total volume given: __3__ mL
Patient tolerated all procedures well without complications.
--- NOTE | 2025-03-11 11:13 | CM ---
Reviewed chart. Met with Mr. Diaz to review discharge plans. He states he is feeling better . He states prior to admission he resides with his spouse and three boys in a two story home with two steps to enter. He states he has a full flight of
steps to get to bedroom/full bathroom. He states he has a powder room on the first floor. He states prior to admission he was independent with ambulation and adls. He states he does not have any DME in the home. He states he has a prescription plan
[facility]. Medical work-up in progress. The discharge plan is to return [facility] with his spouse and son when medically stable.
[2025-03-11] MEDS: NITRO-BID TOPICAL (12:13)
[2025-03-11 12:18] LABS: Glucose - Point of Care 237 mg/dl (70-99)
--- NOTE | 2025-03-11 12:27 | W.PN.CARDCBS ---
Addendum entered and electronically signed by Dereck Lopez MD 03/11/25 17:41:
I saw and examined the patient.
The Professor Of Biostatistics's note was reviewed and I agree with the note.
Comment:
GEN: No distress, awake, Ox3
HEENT: supple, anicteric, mmm
LUNGS: CTA, no wheezes/rales
CV: Reg, S1/S2, 1/6 syst LSB, no gallop
ABD: soft, BS+, NT/ND
EXT: No edema
NEURO: Gross non-focal
SKIN: No rash
Plan:
Cath results reviewed with patient. He does have a diagonal lesion. We will attempt medical therapy for this. Continue Toprol and Norvasc. Continue aspirin and Plavix.
I asked him to ambulate. If he continues to have chest pain which is exertional we will consider PCI in AM. Will leave n.p.o.
Continue Zetia and atorvastatin
Original Note:
Today's Communication / Plan
-
continue toprol. add norvasc for antianginal
continue asa, plavix
primary team to consider alternative etiologies for pain
if none found and tremains with refractory discomfort despite medical therapy of CAD, could be reconsidered for diag PCI
Impression / Plan
-
Please refer to office note dated 03/10/25
Primary Bike Shop Manager: Dr. Robertson
Assessment:
Progressive chest pain
Concern for [place]
Negative trop x1
CAD s/p [place] with ramus PCI with thrombus embolizing into apical LAD s/p PCI 11/2018
HTN
HLD
DM, poorly controlled
GERD
ECHO 02/05/22: EF 60-65%, mild cLVH, trace MR, aortic sclerosis, trace TR
Plan:
- Patient was seen in office yesterday and due to symptoms of chest discomfort with exertion was referred to ER for admission and underwent cardiac catheterization.
- Patient had negative troponins despite constant pain for several days by his report. Cardiac catheterization showed 70% ostial diagonal lesion, however this was felt to be out of proportion to degree of his symptoms and therefore was not
intervened upon acutely
- Plan is for medical management at this time and exploration of alternative etiologies of his discomfort
- He had recurrent symptoms overnight with pain that was 'on and off' He was placed on nitropaste and did not really resolve however did change in quality and location (now more lateral). He does have history of GERD, however states this is
different than his normal acid reflux discomfort
- Echo pending, last from 2021 as above
- Continue aspirin, Plavix
- Did have some groin oozing overnight and sandbag was placed. Hemoglobin 16.4, follow. Reports some soreness
- Toprol 25 mg daily added 03/10. Norvasc 2.5 mg daily added 03/11
- Remains in sinus rhythm on review of telemetry
- LDL 21. Continue outpatient Lipitor and Zetia
- If symptoms remain refractory to medical therapy, and no alternative etiology found, could be reconsidered for intervention of diagonal lesion
- on mounjaro as OP, hold
- Hemoglobin A1c 7.8. diabetes mgmt per primary service
- d/w nursing
Progress Note - Bike Shop Manager
Subjective
Date of Service: March 11, 2025
With some lateral chest discomfort.
Objective
Labs:
03/11/25 02:09
03/11/25 02:09
Labs
Hgb 16.4 g/dL (13.0-18.0) 03/11/25 02:09
Hct 48.2 % (39.0-52.0) 03/11/25 02:09
Plt Count 238 10^3/uL (130-400) 03/11/25 02:09
APTT Cancelled 03/10/25 17:10
Sodium 137 mmol/L (135-145) 03/11/25 02:09
Potassium 5.3 mmol/L (3.5-5.1) H 03/11/25 02:09
BUN 20 mg/dl (9-20) 03/11/25 02:09
Creatinine 0.9 mg/dL (0.7-1.3) 03/11/25 02:09
Glucose 334 mg/dl (70-99) H 03/11/25 02:09
Troponins
03/10/25 03/10/25 03/10/25
10:36 15:07 21:45
Troponin I < 0.012 0.014 Cancelled
Vital Signs and I&O:
Vital Signs
Temp Pulse Resp BP Pulse Ox
97.9 F 91 20 124/83 97
03/11/25 11:41 03/11/25 08:15 03/11/25 11:41 03/11/25 08:00 03/11/25 11:41
Vital Signs
Temp Pulse Resp BP Pulse Ox
97.9 F 91 20 124/83 97
03/11/25 11:41 03/11/25 08:15 03/11/25 11:41 03/11/25 08:00 03/11/25 11:41
Intake & Output
03/09/25 03/10/25 03/11/25 03/12/25
07:59 07:59 07:59 07:59
Intake Total 513 / 513
Output Total 500 / 500
Balance
Physical Exam
Physical Exam
GEN: No distress, awake, alert, oriented x3
HEENT: supple, anicteric, mmm, eomi
LUNGS: CTA B/L, no wheezes/rales
CV: Reg, S1/S2, no murmur
ABD: soft, BS+, NT/ND
EXT: No cyanosis, clubbing, edema
NEURO: Gross non-focal
SKIN: Warm, pink, dry. No rash
[2025-03-11] MEDS: NORVASC 2.5 MG PO (12:37)
[2025-03-11] MEDS: PT'S OWN INSULIN PUMP - NovoLOG 2.4 UNIT SC (13:00)
--- NOTE | 2025-03-11 15:41 | W.PN.HOSP.TC ---
Today's Communication/Plan
-
Assessment / Plan
Assessment / Plan
NAD
Scleral Anicteric
MMM
No JVD
CTABL
RRR, S1/S2
Obese, soft, NT, ND, BS+
Warm, Dry
AAOx3
Calm
CAD s/p PCI x 2
Heparin drip discontinued along with nitroglycerin drip
Nitroglycerin as needed for chest discomfort
LHC completed on 03/10/2025 demonstrate 80% ostial lesion and D1, medically manage versus high risk PCI
-Cardiology does not believe the extent of small vessel CAD is causing this level of chest discomfort without troponin leak
- -Therefore we will ask gastroenterology to evaluate for potential peptic ulcer disease gastritis esophagitis GERD
- -LFTs within normal, slightly up ALP, less likely gallbladder disease. If all other etiologies ruled out then will consider obtaining a right upper quadrant ultrasound
- -CXR without evidence of cardiopulm disease
Continue DAPT and statin
Continue q. 14-day PCSK9i
Continue zetia
HTN
Ntg gtt for preload reduction
Hold ACEi for now
IDDM
Accuchecks
BG 140-180
CCDiet when able to eat
Continue long and short acting insulin
Last a1c 8.1
Hold glp1 antagonist
Gerd
Continue ppi
Anticipated Discharge: 24 - 48 hours
Subjective/Interval History
-
Date of Service: March 11, 2025
Seen and examined. No new complaints. No acute overnight events.
Again had chest discomfort last night after cardiac cath. Improved with Nitropaste
Continues to have intermittent chest discomfort
Objective Data
-
Vital Signs:
Vital Signs
Temp Pulse Resp BP Pulse Ox
97.9 F 97 20 117/86 97
03/11/25 11:41 03/11/25 12:15 03/11/25 11:41 03/11/25 11:40 03/11/25 11:41
I&O
03/10/25 03/11/25 03/12/25
06:59 06:59 06:59
Intake Total 513 / 513 480 / 480
Output Total 500 / 500
Balance 480 / 480
--- NOTE | 2025-03-11 15:53 | CON.GI ---
Addendum entered and electronically signed by Rj Del Angel MD 03/12/25 05:54:
Patient seen and examined, agree with nurse practitioner note. The patient is a 49-year-old male with past medical history as noted who presents with exertional chest pain. He describes pain in his left upper chest with exertion, while he was
golfing. There is no relationship to eating or defecation, has no new GI symptoms. He does have a history of hypertension and GERD, though symptoms are his usual symptoms and stable. He has no vomiting, change in bowel habits, melena or
hematochezia, and again has no association with eating or defecation. Workup so far has been unremarkable does have a diagonal lesion per cardiology. Recent EGD in October without any significant pathology. On exam he has no reproducible
tenderness, no GI tenderness is otherwise benign.
1. Chest pain: Exertional, left upper chest, without relationship to eating or defecation. I do not think that there is any GI etiology related to his chest pain. He has no new symptoms, and again his exertional without other GI associated
symptoms or relationship to eating or defecation. We will hold on further GI workup for now.
We will sign off alcohol please of back with any further questions.
Original Note:
Consultation
-
Date/Time Consultation Requested: 03/11/25 1545
Date/Time Consultation Performed: 03/11/25 1600
Requesting Provider: Praful Escobedo MD
Performing Provider: MARY Dempsey, Elyssa Kern DO
Reason for Consultation: chest pain
Medical History
Chief Complaint / HPI
Chief Complaint: chest pain
History of Present Illness:
Pt is a 49yo with hx obesity on Moujaro last 1 1/2 years with wt loss, NIDDM, CAD with prior stent on Plavix, hyperlipidemia, HTN, GERD, fatty liver (01/2024 MR elastography with no detectable steatosis), H pylori with prior treatment, colon
polyps, chronic dysphagia,elevated alk phos levels that follows closely with Dr. hCoi. he has had prior 24 PH study with increased nighttime symptoms and change on PPI in 2020, esophagram with decreased esophageal motility, GE with gastroparesis
(done with mounjaro use), and EGD. He now presents with chest pain 5/10 in left upper chest. Pain worse with exertion and movement and better with rest. No change with eating. Pain similar to cardiac pain in past and some shortness of breath
with walking. He admits to hx dysphagia with regurgitation but current symptoms not typical of GI issues. In past would happen several times per week now only 1 episode every 2 weeks. He did have some regurgitation with pills since admission
with mucous. He as chronic GERD on Omeprazole 40mg BID with stable symptoms.
Since admission peak troponin 0.014 and pt went to labor contract analyst 03/10 with 80% ostial stenosis with ISABELLE flow distal vessel, and prior ramus stent and apical stent patent. Advised continue medical therapy and eval for alternative etiology but no
etiology could consider diagonal PCI. Pt otherwise denies odynophagia, vomiting, abdominal pain, diarrhea, constipation or rectal bleeding. + wt loss 80 lbs last 1 1/2 years with mounjaro. No new meds. NSAID use about 4 tabs per month. Recent
EGD 10/2024 with clear gastric fluid, erythema, normal esophagus and duodenum with neg bx. Pt denies any recent increase activity for concern for muscular etiology (change in exercise program, yard work, etc).
Past Medical History
Past Medical History: CAD, GERD, HTN, Hypercholesterolemia, IDDM, [place] and Other (obesity on Mounjaro, fatty liver, colon polyps, H pylori with prior treatment )
Past Surgical History: Cardiac (prior stent on Plavix )
Social History
Tobacco: Non-Smoker
Alcohol: None
Drug: None
Personal:
Living: With Family
Employment: Employed
Family History
Family History: Other (father 63 CAD, mother breast CA)
Allergies / Home Medications
Allergy/AdvReac Type Severity Reaction Status Date / Time
No Known Allergies Allergy Verified 03/10/25 10:06
�Medication �Instructions �Recorded
clopidogrel 75 mg tablet 75 mg PO DAILY Blood clot 12/29/21
prevention/tx
cyanocobalamin (vitamin B-12) 1,000 mcg PO DAILY Supplement 12/29/21
1,000 mcg tablet
ezetimibe 10 mg tablet 10 mg PO DAILY High cholesterol 12/29/21
omeprazole 20 mg tablet,delayed 40 mg PO BID Gastrointestinal Issue 12/30/21
release
alirocumab 75 mg/mL subcutaneous 75 mg SC Q14D High Cholesterol ##0 12/31/21
pen injector (Praluent Pen)
Patient Own Insulin Pump 1 sliding scale dose SC .VIA FIASP 03/10/25
Diabetes
aspirin 81 mg chewable tablet 81 mg PO DAILY Blood Clot 03/10/25
Prevention/Tx
atorvastatin 80 mg tablet 80 mg PO DAILY High Cholesterol 03/10/25
losartan 50 mg tablet 50 mg PO DAILY Blood Pressure 03/10/25
tirzepatide 10 mg/0.5 mL 10 mg SC TU endocrine 03/10/25
subcutaneous pen injector
(Dennisunelizabeth)
Review of Systems
-
History Source: Patient
Constitutional: Reports Weight Loss
EENT: Reports No Symptoms
Respiratory: Reports Trouble Breathing (with exertion )
Cardiac: Reports Chest Pain
Abdomen/GI: Reports Other (chronic GERD, + dysphagia with regurgitation with mucous )
: Reports No Symptoms
Musculoskeletal: Reports No Symptoms
Skin: Reports No Symptoms
Neurological: Reports No Symptoms
Endocrine: Reports No Symptoms
Hematologic/Lymphatic: Reports No Symptoms
Vital Signs
Temp Pulse Resp BP Pulse Ox
97.9 F 97 20 117/86 95
03/11/25 15:42 03/11/25 12:15 03/11/25 15:42 03/11/25 11:40 03/11/25 15:42
Physical Exam
Exam
General: Well Developed, Well Nourished and No Apparent Distress
HEENT: Normocephalic and Anicteric
Respiratory: Clear
Cardiac: Regular Rhythm and Other (unable to reproduce pain)
GI: Soft, Non Tender and Non Distended
Musculoskeletal: No Clubbing and No Cyanosis
Skin: Warm and Dry
Neuro: Awake, Alert and AO x 3
Psych: Calm
Results
WBC 14.9 10^3/uL (4.8-10.8) H 03/11/25 02:09
Hgb 16.4 g/dL (13.0-18.0) 03/11/25 02:09
Hct 48.2 % (39.0-52.0) 03/11/25 02:09
MCV 92.7 fL (80.0-94.0) 03/11/25 02:09
Plt Count 238 10^3/uL (130-400) 03/11/25 02:09
Absolute Neuts (auto) 5.3 10^3/uL (1.4-6.5) 03/10/25 10:36
APTT Cancelled 03/10/25 17:10
Sodium 137 mmol/L (135-145) 03/11/25 02:09
Potassium 5.3 mmol/L (3.5-5.1) H 03/11/25 02:09
Chloride 106 mmol/L (98-107) 03/11/25 02:09
Carbon Dioxide 20 mmol/L (22-30) L 03/11/25 02:09
BUN 20 mg/dl (9-20) 03/11/25 02:09
Creatinine 0.9 mg/dL (0.7-1.3) 03/11/25 02:09
Calcium 9.0 mg/dl (8.4-10.2) 03/11/25 02:09
Total Bilirubin 0.8 mg/dl (0.2-1.3) 03/10/25 11:39
AST 24 U/L (17-59) 03/10/25 11:39
ALT < 10 U/L (0-50) 03/10/25 11:39
Alkaline Phosphatase 139 U/L (38-126) H 03/10/25 11:39
Diagnostic Image Results:
06/23/2020- esophagram
Markedly decreased esophageal motility with tertiary contractions.
08/29/2022 GE scan -- Scintigraphic evidence of gastroparesis.
10/2024- EGD salguti - No gross lesions in the entire esophagus. Biopsied.
- Z-line variable, 40 cm from the incisors. Biopsied.
- Clear gastric fluid.
- Erythematous mucosa in the antrum. Biopsied.
- Normal examined duodenum.
bx neg metaplasia neg h pylori
11/2022- salguti - A single erosion in the terminal ileum. Biopsied.
- One 2 mm polyp in the transverse colon, removed with
a jumbo cold forceps. Resected and retrieved.
- Internal hemorrhoids.
colon TA TC polyp, TI with focal acute inflammation lymphoid aggegate
Assessment / Plan
-
Pt is a 49yo with hx obesity on Moujaro last 1 1/2 years with wt loss, NIDDM, CAD with prior stent on Plavix, hyperlipidemia, HTN, GERD, fatty liver (01/2024 MR elastography with no detectable steatosis), H pylori with prior treatment,colon polyps,
chronic dysphagia,elevated alk phos levels that follows closely with Dr. Choi. He has had prior 24 PH study with increased nighttime symptoms and change on PPI in 2020, esophagram with decreased esophageal motility, GE with gastroparesis (done
with mounjaro use), and EGD. He now presents with chest pain 5/10 in left upper chest. Pain worse with exertion and movement and better with rest. No change with eating. Pain similar to cardiac pain in past and some shortness of breath with
walking. He admits to hx dysphagia with regurgitation but current symptoms are not typical for GI issues. In past would happen several times per week now only 1 episode every 2 weeks. He did have some regurgitation with pills since admission with
mucous. He as chronic GERD on Omeprazole 40mg BID with stable symptoms. Since admission peak troponin 0.014 and pt went to labor contract analyst 03/10 with 80% ostial stenosis with ISABELLE flow distal vessel, and prior ramus stent and apical stent patent.
Advised continue medical therapy and eval for alternative etiology but no etiology could consider diagonal PCI. + wt loss 80 lbs last 1 1/2 years with Mounjaro. No new meds. NSAID use about 4 tabs per month. Recent EGD 10/2024 with clear gastric
fluid, erythema, normal esophagus and duodenum with neg bx. Pt denies any recent increase activity for concern for muscular etiology (change in exercise program, yard work, etc).
-chest pain - worse with exertion and better with rest
-s/p cath 03/10 with 80% ostial stenosis with ISABELLE flow distal vessel, and prior ramus stent and apical stent patent.
-chronic dysphagia with hx esophageal dysmotility
-GERD stable on PPI with prior PH testing
other med problems:
-obesity on Moujaro last 1 1/2 years with wt loss
-NIDDM
- CAD with prior stent on Plavix
- hyperlipidemia
- HTN
- fatty liver (01/2024 MR elastography with no detectable steatosis)
- H pylori with prior treatment
-colon polyps
- elevated alk phos levels
PLAN:
etiology of left upper chest pain unclear-- cardiac though s/p work up with cards with symptoms felt to be out of proportion for cardiac finding, doubt GI related as GERD and dysphagia stable on PPI therapy , no reproducible pain to suggest
muscular etiology
pt with some regurgitation of pill and mucous during admission but chronic symptoms and actually improving
recent EGD in October stable
cont PPI BID
hbg stable 16.4
[address] with Dr. Kern for further recommendation
Pt scheduled follow up with Dr. Choi for 05/05/25 at 0930 AM
-
-
Thank you for consultation and allowing me to participate in the patient's care. Please call the weight control lecturer GI physician during the after hours with any questions or concerns.
[2025-03-11 16:50] LABS: Glucose - Point of Care 78 mg/dl (70-99)
--- NOTE | 2025-03-11 18:25 | PTCARENOTE ---
Patient ambulated in the meredith several times without chest pain but felt fatigued after.
[2025-03-11 22:22] LABS: Glucose - Point of Care 138 mg/dl (70-99)
--- NOTE | 2025-03-12 01:33 | PTCARENOTE ---
Patient ambulating self in room. Tele monitor shows SR w/ BBBC, HR in the 70-90's at rest. Right radial site BALANCE CLERK, and right groin dressing intact. Pt instructed to remain NPO at midnight for Abd US in AM. Call piper within reach.
[2025-03-12 04:08] VITALS: BP 137/79
[2025-03-12 04:52] LABS: Hematocrit 45.5 % (39.0-52.0); Hemoglobin 15.6 g/dL (13.0-18.0); Mean Corp Hgb Conc. 34.3 g/dL (33.0-37.0); Mean Corpuscular Volume 90.8 fL (80.0-94.0); Platelet Count 217 10^3/uL (130-400); Red Cell Dist. Width 11.9 % (11.5-14.5)
[2025-03-12 05:28] LABS: Blood Urea Nitrogen 18 mg/dl (9-20); Calcium 9.3 mg/dl (8.4-10.2); Carbon Dioxide 25 mmol/L (22-30); Chloride 106 mmol/L (98-107); Estimated Creatinine Clearance > 125 ml/min; Glucose 119 mg/dl (70-99); Potassium 4.0 mmol/L (3.5-5.1); Sodium 138 mmol/L (135-145); eGFR > 60.00
[2025-03-12 07:11] VITALS: BP 116/63
--- NOTE | 2025-03-12 07:44 | PN.DE.MGMTRT ---
Insulin Management
- -
03/12/2025: Diabetes Management Follow up
Patient admitted 03/10 with chest pain. PMH: CAD with 2 previous stents, HTN, diabetes. Prior to admission was using the OmniPod 5 with DexCom G 6 and Fiasp insulin. A1C on admission 7.8%, Cr 0.9, eGFR > 60.
On admission glucose was 120, patient continued his insulin pump. Glucose trended down to 54 @ 13:35 and continued down to 49 @ 17:39, remained < 59 till 18:43. Pod was removed. Family brought in new Pod and insulin from home. At 9:30 pod was
resumed. Glucose was > 350 at that time.
Patient programmed pod for 35 grams of carbohydrate and was NOT familiar with using the sensor BG to correct. He states in 2 years he never knew that that's what that was and how to use it. Instructed patient that if he only took insulin for his
food his glucose would remain > 350. He states: that make sense. Instructed patient when bolusing for a meal to ALWAYS utilize the correction feature. Patient to use pod for all boluses for meals and corrections.
This morning, pt is awake, alert, oriented, sitting up in chair, offers no complaints, able to discuss diabetes care plan
Glucose stable and in range. Pt was able to adm bolus via pump at dinner time and with subsequent meals. HS glucose was 138. FBG 119 V this AM.
Will cont insulin pump at current Pod settings as follows:
12am 0.15 Carb ratio 4 Sensitivity 15
3am 1.2
8am 2.70
3:30 time changed to 2:30 1.75Due to hypoglycemia from 13:35 to 18:43 9pm 0.4
24 hour basal total 36.55
Discussed with nurse. Will cont to follow.
Diabetes History
- -
Type of Diabetes: 1
Pre-Admission Diabetes Regimen
03/12/25
04:17
Creatinine 0.8
Lab Results
Hemoglobin A1c 7.8 % (4.0-5.6) H 03/10/25 10:36
Insulin Pump Settings
IP Diabetes Regimen
03/11/25 03/11/25 03/11/25
12:17 16:48 22:21
Glucose
POC Glucose 237 H 78 138 H
03/12/25
04:17
Glucose 119 H
POC Glucose
Meal type: Dinner
Meal type: Breakfast
Amount consumed: 100%
Amount consumed: 100%
Patient Education
--- NOTE | 2025-03-12 09:25 | W.PN.CARDCBS ---
Today's Communication / Plan
-
Recommendations;
-Continue dual antiplatelet therapy
-Continue metoprolol and amlodipine. Will make metoprolol 25mg bid
-SLNTG tablets as prn if needed: I explained to Mr. Diaz that if he is taking a lot of SLNTG then he should come to the ED for evaluation
-I would like for him to walk in halls and if symptom free, can probably discharge later
Impression / Plan
-
Please refer to office note dated 03/10/25
Primary Medical Auditor: Dr. Robertson
Assessment:
Progressive chest pain with ostial / proximal diagonal stenosis.
Concern for [place]
Negative trop x1
CAD s/p [place] with ramus PCI with thrombus embolizing into apical LAD s/p PCI 11/2018
HTN
HLD
DM, poorly controlled
GERD
ECHO 02/05/22: EF 60-65%, mild cLVH, trace MR, aortic sclerosis, trace TR
-03/11/2025: Echo: LV: Lumason utilized to improve endocardial definition. EF 72%. RV: Normal, LA: Normal, RA: Normal, AV: Sclerotic. No AI. MV: No MR, TV: No TR
-03/10/2025: Cath: LM: Patent, LAD: Large caliber giving 2 major diagonal branches. Percent ostial/proximal stenosis. D2 is moderate with 70% ostial stenosis. The mid LAD has 50%. Apical LAD has 50-60% proximal to previously stented segment.
RI: Large-caliber. Ostial stent is widely patent, LCx: Gives rise to 2 major obtuse marginal branches with minor irregularities. RCA: Large-caliber vessel. Diffuse plaque in the PDA which appears angiographically stable.
Plan:
- Patient was seen in office yesterday and due to symptoms of chest discomfort with exertion was referred to ER for admission and underwent cardiac catheterization.
- Patient had negative troponin even with chest discomfort for hours / day.
- Cardiac catheterization showed 70% ostial / proximal diagonal lesion: Dr. Moser was unsure if stenosis was true culprit resulting in patients symptoms.
He has been restarted on oral beta bradley and amlodipine and blood pressures seem okay
Will continue dual antiplatelet with aspirin and Plavix
Will push antianginals as tolerated, however, if he experiences more symptoms may stent ostial diagonal in steep probable AP caudal 50-degree'kostas view
Symptoms seemed out of proportion to degree of stenosis with negative troponin
Toprol 25 mg daily added 03/10. Norvasc 2.5 mg daily added 03/11
If symptoms remain refractory to medical therapy, and no alternative etiology found, could be reconsidered for intervention of diagonal lesion
- LDL 21. Continue outpatient Lipitor and Zetia
- Mounjaro as OP, hold
- Hemoglobin A1c 7.8. diabetes mgmt per primary service
- d/w nursing
-Spent 55 min reviewing echo, catheterization, and in discussion / exam with Mr. Diaz
Progress Note - Medical Auditor
Subjective
Date of Service: March 12, 2025
Groin remains a little sore
Objective
Labs:
03/12/25 04:17
03/12/25 04:17
Labs
Hgb 15.6 g/dL (13.0-18.0) 03/12/25 04:17
Hct 45.5 % (39.0-52.0) 03/12/25 04:17
Plt Count 217 10^3/uL (130-400) 03/12/25 04:17
APTT Cancelled 03/10/25 17:10
Sodium 138 mmol/L (135-145) 03/12/25 04:17
Potassium 4.0 mmol/L (3.5-5.1) 03/12/25 04:17
BUN 18 mg/dl (9-20) 03/12/25 04:17
Creatinine 0.8 mg/dL (0.7-1.3) 03/12/25 04:17
Glucose 119 mg/dl (70-99) H 03/12/25 04:17
Troponins
03/10/25 03/10/25 03/10/25
10:36 15:07 21:45
Troponin I < 0.012 0.014 Cancelled
Vital Signs and I&O:
Vital Signs
Temp Pulse Resp BP Pulse Ox
97.9 F 80 20 137/79 95
03/12/25 07:11 03/12/25 04:08 03/12/25 07:11 03/12/25 04:08 03/12/25 07:11
Vital Signs
Temp Pulse Resp BP Pulse Ox
97.9 F 80 20 137/79 95
03/12/25 07:11 03/12/25 04:08 03/12/25 07:11 03/12/25 04:08 03/12/25 07:11
Intake & Output
03/09/25 03/10/25 03/11/25 03/12/25
23:59 23:59 23:59 23:59
Intake Total 513 / 513 480 / 480 240 / 240
Output Total 500 / 500
Balance 513 / 513 -20 / -20 240 / 240
Physical Exam
Physical Exam
GEN: AAO x 3. No acute distress
HEENT: NC/AT, sclera are anicteric
LUNGS: Clear anterior and laterally. No wheezing
CV: Regular rate and rhythm. Normal S1/S2. No S3, No S4. Murmur: None
ABD : Soft, NT, ND,
EXT: No CCE. Right arteriotomy site is soft and no bruit noted. Remains mildly tender
NEURO: No focal neurologic deficits
[2025-03-12 09:50] LABS: Glucose - Point of Care 142 mg/dl (70-99)
[2025-03-12] MEDS: ZETIA 10 MG PO (10:15)
[2025-03-12] MEDS: NORVASC 2.5 MG PO (10:15)
[2025-03-12] MEDS: LIPITOR 80 MG PO (10:15)
[2025-03-12] MEDS: PROTONIX 40 MG PO (10:15)
[2025-03-12] MEDS: PLAVIX 75 MG PO (10:16)
[2025-03-12] MEDS: VITAMIN B-12 1000 MCG PO (10:16)
[2025-03-12] MEDS: LOW STRENGTH ASPIRIN 81 MG PO (10:16)
[2025-03-12] MEDS: TOPROL XL 25 MG PO (10:16)
[2025-03-12 10:17] VITALS: BP 103/76
[2025-03-12 10:26] VITALS: BP 124/87
[2025-03-12] MEDS: TOPROL XL PO (10:36)
--- NOTE | 2025-03-12 10:37 | PTCARENOTE ---
Addendum entered by Koko Mueller RN 03/12/25 12:23:
Assumed care at 0700. Patient NPO for US, completed and back in room. Walking in halls this morning, describes left sided chest pressure that increases in intensity from a 1 to a 2-3 when he ambulates in the meredith, 'tightness'. Pressure becomes less
to a 1 with sitting, BP 124/87, NSR 83. Did report shortness of breath with walking. In chair now, VSS, call piper in reach
Original Note:
Assumed care at 0700. Patient NPO for US, completed and back in room. Walking in halls this morning, describes left sided chest pressure that increases in intensity from a 1 to a 2-3 when he ambulates in the meredith. Pressure becomes less to a 1 with
sitting, BP 124/87, NSR 83. Did report shortness of breath with walking. In chair now, VSS, call piper in reach
[2025-03-12 11:22] VITALS: BP 112/73
[2025-03-12 12:43] LABS: Glucose - Point of Care 106 mg/dl (70-99)
--- NOTE | 2025-03-12 13:13 | CM ---
Reviewed chart. Met with Mr. Diaz to review discharge plans. He states he is feeling ok. Prior to admission he resides with his spouse and three boys in a two story home with two steps to enter. He has a full flight of steps to get to
bedroom/full bathroom. He has a powder room on the first floor. Prior to admission he was independent with ambulation and adls. He does not have any DME in the home. He states he has a prescription plan and uses [facility]. Medical
work-up in progress. The discharge plan is to return home with his spouse and son when medically stable.
--- NOTE | 2025-03-12 14:53 | PTCARENOTE ---
Patient in chair with family. No chest pain but a tightness sensation left anterior chest 'barely there, less than a 1 in chair'
[2025-03-12 15:11] VITALS: BP 126/71
--- NOTE | 2025-03-12 15:43 | W.PN.HOSP.TC ---
Today's Communication/Plan
-
Assessment / Plan
Assessment / Plan
NAD
Scleral Anicteric
MMM
No JVD
CTABL
RRR, S1/S2
Obese, soft, NT, ND, BS+
Warm, Dry
AAOx3
Calm
CAD s/p PCI x 2
Heparin drip discontinued along with nitroglycerin drip
Nitroglycerin as needed for chest discomfort
LHC completed on 03/10/2025 demonstrate 80% ostial lesion and D1, medically manage versus high risk PCI
-Cardiology does not believe the extent of small vessel CAD is causing this level of chest discomfort without troponin leak
- -Therefore we will ask gastroenterology to evaluate for potential peptic ulcer disease gastritis esophagitis GERD
- -LFTs within normal, slightly up ALP, less likely gallbladder disease. If all other etiologies ruled out then will consider obtaining a right upper quadrant ultrasound
- -CXR without evidence of cardiopulm disease
Continue DAPT and statin
Continue q. 14-day PCSK9i
Continue zetia
Metoprolol 25 mg twice daily
HTN
Ntg gtt for preload reduction
Hold ACEi for now
Norvasc added
IDDM
Accuchecks
BG 140-180
CCDiet when able to eat
Continue long and short acting insulin
Last a1c 8.1
Hold glp1 antagonist
Gerd
Continue ppi
Anticipated Discharge: Today
Subjective/Interval History
-
Date of Service: March 12, 2025
Seen and examined. Was informed by cardiology that he should walk the hallways. When doing so he did experience some mild chest discomfort.
He told me that cardiology was going to make some medication adjustments
Objective Data
-
Labs:
Laboratory Results
03/12/25
04:17
WBC 8.9
Hgb 15.6
Hct 45.5
Plt Count 217
Sodium 138
Potassium 4.0
Chloride 106
Carbon Dioxide 25
BUN 18
Creatinine 0.8
Glucose 119 H
Calcium 9.3
Vital Signs:
Vital Signs
Temp Pulse Resp BP Pulse Ox
97.9 F 79 16 112/73 96
03/12/25 15:09 03/12/25 15:09 03/12/25 15:09 03/12/25 11:22 03/12/25 15:09
I&O
03/11/25 03/12/25 03/13/25
06:59 06:59 06:59
Intake Total 513 / 513 720 / 720
Output Total 500 / 500
Balance 720 / 720
--- NOTE | 2025-03-12 16:05 | W.DCSUMMARY ---
Discharge Summary
Discharge Data
Date of Admission: 03/10/25
Date of Discharge: 03/12/25
-
Pending Results: No
Hospital Course
49 male history of CAD s/p PCI in 2019, hypertension hyperlipidemia diabetes
Presented with chest discomfort and shortness of breath breaking a sweat. Was taken to the [facility]. Found to have a D1 ostial lesion, was not stented. At this time plan to medically treat per cardiology. Occasions were adjusted. Continue
Toprol XL 25 mg twice a day along with low-dose amlodipine as well as sublingual nitroglycerin. Continue aspirin and Plavix. If noted to have worsening symptomatology return to the hospital. Additionally with not do anything too strenuous rest.
Will need continued outpatient cardiology follow-up.
2d echo
SUMMARY
1. Lumason intravenous contrast was given for enhanced left ventricular opacification and improved delineation of the left ventricular endocardial borders. Normal left ventricular size, wall thickness and systolic function. No regional wall motion
abnormalities are seen. Left ventricular ejection fraction is normal with an ejection fraction visually estimated at 65-70%.
2. There is no significant valvular disease.
3. Compared to prior echocardiogram December 30, 2019, there is no significant change.
LHC
CONCLUSIONS
1. D1 is a large-caliber vessel with 80% ostial stenosis with ISABELLE-3 flow into the distal vessel.
2 . Previously placed ramus intermedius stent and apical LAD stents are widely patent.
3. Stable RPDA disease.
RECOMMENDATIONS
1. Wean radial band per protocol. Monitor right hand perfusion and for bleeding from the radial site following removal of the vascular-band following trans-radial access. Bedrest per protocol.
2. Continue aggressive medical therapy and risk factor modification for secondary CAD prevention. Aggressive titration of antianginal therapies.
3. If patient has persistent symptoms despite maximally tolerated antianginal therapy, could consider high risk intervention to ostial D1 at the potential risk of plaque shift into the LAD requiring bifurcational stenting adding to the complexity
of the procedure.
4. Full echocardiogram to assess biventricular function.
5. Outpatient referral for cardiac rehab
Discharge Plan
-
Patient Disposition: Home (Routine Discharge)
Discharge Diagnosis/Procedures: Cardiac cath
Chest pain
Condition: Fair
Diet: Low Cholesterol and Diabetic, Carb Controlled
Driving Restrictions: No driving for 24 hours
Activity Restrictions/Additional Instructions:
Presented with chest discomfort and shortness of breath breaking a sweat. Was taken to the [facility]. Found to have a D1 ostial lesion, was not stented. At this time plan to medically treat per cardiology. Occasions were adjusted. Continue
Toprol XL 25 mg twice a day along with low-dose amlodipine as well as sublingual nitroglycerin. Continue aspirin and Plavix. If noted to have worsening symptomatology return to the hospital. Additionally with not do anything too strenuous rest.
Will need continued outpatient cardiology follow-up.
2d echo
SUMMARY
1. Lumason intravenous contrast was given for enhanced left ventricular opacification and improved delineation of the left ventricular endocardial borders. Normal left ventricular size, wall thickness and systolic function. No regional wall motion
abnormalities are seen. Left ventricular ejection fraction is normal with an ejection fraction visually estimated at 65-70%.
2. There is no significant valvular disease.
3. Compared to prior echocardiogram December 30, 2019, there is no significant change.
[facility]
CONCLUSIONS
1. D1 is a large-caliber vessel with 80% ostial stenosis with ISABELLE-3 flow into the distal vessel.
2 . Previously placed ramus intermedius stent and apical LAD stents are widely patent.
3. Stable RPDA disease.
RECOMMENDATIONS
1. Wean radial band per protocol. Monitor right hand perfusion and for bleeding from the radial site following removal of the vascular-band following trans-radial access. Bedrest per protocol.
2. Continue aggressive medical therapy and risk factor modification for secondary CAD prevention. Aggressive titration of antianginal therapies.
3. If patient has persistent symptoms despite maximally tolerated antianginal therapy, could consider high risk intervention to ostial D1 at the potential risk of plaque shift into the LAD requiring bifurcational stenting adding to the complexity
of the procedure.
4. Full echocardiogram to assess biventricular function.
5. Outpatient referral for cardiac rehab
Stand Alone Forms: DC Instructions- Cath/EP Lab, Return to Work
Referrals:
Cassi Whitney PA-C [Specified Professional Personl, Cardiology] - 04/14/25 8:20 am
Referral Note: You have hospital follow-up with cardiology, Cassi Whitney PA-C on April 14 at 8:20 AM in [address] [facility] [address] [facility]. If you are unable to make this appointment please call [phone] to reschedule
Brian Robertson MD [Active, Cardiology] - 05/27/25 7:40 am
Sari Deleon MD [Family Provider]
Prescriptions:
New
amlodipine 2.5 mg Tablet
2.5 mg PO DAILY Qty: 30 0RF
metoprolol succinate 25 mg Tablet Extended Release 24 Hr
25 mg PO BID Qty: 30 0RF
Continued
clopidogrel 75 MG tablet
75 mg PO DAILY
cyanocobalamin (vitamin B-12) 1,000 MCG tablet
1,000 mcg PO DAILY
ezetimibe 10 MG tablet
10 mg PO DAILY
omeprazole 20 MG tablet,delayed release (DR/EC)
40 mg PO BID
Praluent Pen 75 mg/mL Pen Injector
75 mg SC Q14D Qty: 0
Mounjaro 10 mg/0.5 mL Pen Injector
10 mg SC TU
Patient Own Insulin Pump
1 sliding scale dose SC .VIA FIASP
atorvastatin 80 MG tablet
80 mg PO DAILY
aspirin 81 MG tablet,chewable
81 mg PO DAILY
Discontinued
losartan 50 mg Tablet
50 mg PO DAILY
Discharge Orders:
Discharge Patient (As Directed); Ordered 03/12/25
Ordered By: Praful Escobedo
Care Plan Goals
Care Plan Goals:
Problem: Readiness for enhanced knowledge related to diagnosis and treatment plan
Goal: Understand your diagnosis and treatment plan needs, including medications if applicable.
Instructions: Know your diagnosis, underlying causes and treatment plan options, including medications if applicable. Consult with your health care team to learn about your diagnosis and treatment plan, including medications if applicable.
Discharge Date and Time
Print Language: BELARUSIAN
--- NOTE | 2025-03-12 17:33 | PTCARENOTE ---
Patient discharged to home. Teaching provided, and patient verbalized understanding. IV and telemetry removed. Escorted to main lobby in a wheelchair
== END 2025-03-12 17:43 | disposition home or self-care (01) | DRG 287 ==
LOC: IVU 13:57
PROVIDERS: Internal Medicine Interventional Cardiology; ADMITTING PHYSICIAN Hospitalist; EMERGENCY PHYSICIAN Emergency Medicine; FAMILY PHYSICIAN Family Medicine; OTHER PHYSICIAN Internal Medicine Gastroenterology
PROC: 4A023N7 Measurement of Cardiac Sampling and Pressure, Left Heart, Percutaneous Approach (ICD-10-PCS; 2025-03-10)
PROC: B2111ZZ Fluoroscopy of Multiple Coronary Arteries using Low Osmolar Contrast (ICD-10-PCS; 2025-03-10)
DX: I25.110 Atherosclerotic heart disease of native coronary artery with unstable angina pectoris (principal); Z95.5 Presence of coronary angioplasty implant and graft; E78.00 Pure hypercholesterolemia, unspecified; I10 Essential (primary) hypertension; E11.43 Type 2 diabetes mellitus with diabetic autonomic (poly)neuropathy; Z79.82 Long term (current) use of aspirin; E66.9 Obesity, unspecified; Z68.35 Body mass index [BMI] 35.0-35.9, adult; K21.9 Gastro-esophageal reflux disease without esophagitis; Z86.0100 Personal history of colon polyps, unspecified; K76.0 Fatty (change of) liver, not elsewhere classified; Z79.02 Long term (current) use of antithrombotics/antiplatelets; Z79.4 Long term (current) use of insulin; Z79.899 Other long term (current) drug therapy; Z80.3 Family history of malignant neoplasm of breast; Z82.49 Family history of ischemic heart disease and other diseases of the circulatory system
CPT/HCPCS: 71045; 76700; 80048; 80053; 80061; 82962; 83036; 83735; 83880; 84484; 85025; 85027; 85730; 93005; 93306; 93458; 96361; 96374; 96376; 99152; 99153; 99285; C1760; C1769; C1887; C1894; Q9950; Q9967

== ENCOUNTER 2025-03-25 18:26 | Inpatient (IN) | payer OTHER, SELFPAY ==
[2025-03-25] VITALS (8 sets, daily range): BP systolic 125–171; BP diastolic 66–119; BMI 36.1; BMI 35.0
[2025-03-25 14:26] LABS: Hematocrit 46.2 % (39.0-52.0); Hemoglobin 15.7 g/dL (13.0-18.0); Mean Corp Hgb Conc. 34.0 g/dL (33.0-37.0); Mean Corpuscular Volume 90.4 fL (80.0-94.0); Nucleated Red Blood Cells % 0 % (-); Platelet Count 259 10^3/uL (130-400); Red Cell Dist. Width 11.9 % (11.5-14.5)
[2025-03-25 14:54] LABS: Blood Urea Nitrogen 19 mg/dl (9-20); Calcium 9.7 mg/dl (8.4-10.2); Carbon Dioxide 27 mmol/L (22-30); Chloride 106 mmol/L (98-107); Glucose 160 mg/dl (70-99); Sodium 137 mmol/L (135-145); eGFR > 60.00
[2025-03-25 14:57] LABS: Troponin I < 0.012 ng/ml
--- NOTE | 2025-03-25 16:55 | ED.GENMED ---
History of Present Illness
General
Chief Complaint: Chest Pain
Time Seen by Provider: 03/25/25 16:42
History of Present Illness
History of Present Illness:
49-year-old male history of CAD, hypertension, hyperlipidemia, GERD, diabetes presenting with chest pain and shortness of breath with exertion. Patient states he has been having episodes for the past 3 weeks, had a cardiac catheterization on 03/10
that showed questionable lesion that ultimately was not stented. Patient states that he was advised to continue medical therapy but if symptoms worsen return to the emergency department. Patient states that on Saturday while walking at a car
parking lot he was having left-sided chest pain with shortness of breath. Patient states that symptoms resolved with nitro. Patient states he has been having constant nonradiating chest pressure for the past 3 weeks. Patient states that he called
his cardiology office today and was recommended come to the emergency department for further evaluation.
Past History
Past History
ED Past Medical History: CAD, HTN and IDDM
ED Past Surgical History: Cardiac and Orthopedic
Social History
Tobacco: Non-smoker
Alcohol: Other
Drug: None
Personal:
Living: with family
Employment: Employed
Family History
Family History: Other
Phy Exam
Physical Exam
Physical Exam:
General: Alert, no acute distress
Head: NCAT
Eyes: clear conjunctiva
Neck: supple
Cardiac: regular rate and rhythm, no murmur
Chest wall: Reproducible left-sided chest wall tenderness to palpation. No overlying rash
Lungs: clear to auscultation bilaterally. No wheezes, rales, or rhonchi. Speaking full unlabored sentences. No respiratory distress.
Abdomen: soft, nondistended nontender. No rebound or guarding.
MSK: no lower extremity edema bilaterally. No deformity
Skin: warm, dry
Neuro: Alert and oriented x3. no focal deficits
Scores
Heart Score for Chest Pain Patients
STEMI patient?: No
History: Highly Suspicious
ECG: Nonspecific Repolarization
Age: >45 - <65 years
Risk Factors: >/= 3 Risk Factors or History of CAD
Troponin: </= Normal Limit
Heart Score for Chest Pain Patients: 6
Heart Score Risk: 20.3% MACE over next 6 weeks
Course
Orders/Labs/Results
Orders:
Orders
03/25/25 14:10
EKG [Electrocardiogram (*1)] Urgent
Reason for Study: Chest Pain
03/25/25 14:11
EKG- Treatment ONCE
03/25/25 14:21
Basic Metabolic Panel Urgent
Complete Blood Count/With Diff Urgent
Troponin I Urgent
03/25/25 16:54
EKG- Treatment ONCE
03/25/25 17:20
Electrocardiogram (*1) Urgent
Reason for Study: Chest Pain
Troponin I Urgent
Abnormal Lab Results
03/25/25
14:21
Absolute Monos (auto) 0.8 H 10^3/uL
(0.1-0.6)
Glucose 160 H mg/dl
(70-99)
03/25/25 14:21
03/25/25 14:21
Vital Signs
Initial and Last Documented VS:
Initial Vital Signs
Temp Pulse Resp BP Pulse Ox
97.5 F 80 16 167/86 98
03/25/25 14:14 03/25/25 14:14 03/25/25 14:14 03/25/25 14:14 03/25/25 14:14
Last Documented Vital Signs
Temp Pulse Resp BP Pulse Ox
97.5 F 81 20 142/119 98
03/25/25 14:14 03/25/25 16:40 03/25/25 16:40 03/25/25 16:40 03/25/25 17:03
MDM/Problems Addressed
Differential Diagnosis Includes:
NSTEMI, unstable angina, musculoskeletal pain
MDM/Problems Addressed:
49-year-old male history of CAD, hypertension, hyperlipidemia, diabetes, previous MIs with cardiac stent presenting with persistent left-sided chest pain shortness of breath worse with exertion that resolves with nitro. On chart review, patient had
cardiac catheterization on 03/10 that showed D1 ostial lesion that was not stented, recommended to treat medically and to return for worsening symptoms. Patient states on Saturday he had worsening symptoms prompted ED evaluation. Results reviewed.
Troponin negative. EKG unchanged from previous. Discussed with cardiology. Discussed with hospitalist for admission
Chronic conditions affecting care: DM, HTN and CAD
Acute Exacerbation and/or Progression of Chronic Illness: CAD
*Pulse Oximetry
SaO2: 98
Oxygen Mode of Delivery: Room air
Patient hypoxic: no
*EKG
Interpreted by ED Provider?: Yes (EKG shows normal sinus rhythm at 80 bpm with MS 176 QTc 470, right bundle branch block, no STEMI, similar to previous EKG on 03/10/2025)
*Critical Care Note
Total Time (30-74mins, 75-104mins- exclusive of procedures): Not Applicable
ED Attending Note
-
Portions of this chart may have been created with voice recognition software.� Occasional wrong word or��sound alike� substitutions may have occurred due to the inherent limitations of voice recognition software.
Discharge Plan
Departure
Patient Disposition: Admit
Date of Disposition: 03/25/25
Time of Disposition: 17:07
Presentation/result/management discussed w/ accepting MD/DO: Hospitalist
Discharge Problem:
Unstable angina
Prescriptions:
No Action
clopidogrel 75 MG tablet
75 mg PO DAILY
cyanocobalamin (vitamin B-12) 1,000 MCG tablet
1,000 mcg PO DAILY
ezetimibe 10 MG tablet
10 mg PO DAILY
omeprazole 20 MG tablet,delayed release (DR/EC)
40 mg PO BID
Praluent Pen 75 mg/mL Pen Injector
75 mg SC Q14D Qty: 0
Mounjaro 10 mg/0.5 mL Pen Injector
10 mg SC TU
Patient Own Insulin Pump
1 sliding scale dose SC .VIA FIASP
atorvastatin 80 MG tablet
80 mg PO DAILY
aspirin 81 MG tablet,chewable
81 mg PO DAILY
amlodipine 2.5 mg Tablet
2.5 mg PO DAILY Qty: 30 0RF
metoprolol succinate 25 mg Tablet Extended Release 24 Hr
25 mg PO BID Qty: 30 0RF
nitroglycerin 0.4 mg tablet, sublingual
0.4 mg sublingual Q5-15M PRN (Reason: chest pain) Qty: 20 0RF
Referrals:
Sari Deleon MD [Family Provider]
Interventions
Interventions:
*Risk Screen - Suicide Last Done: 03/25/25 14:17
*General Assessment Last Done: 03/25/25 16:42
*Neglect/Abuse Screening Last Done: 03/25/25 14:17
*ED- Fall Risk Assessment Last Done: 03/25/25 16:42
*ED COVID-19 Vaccine History Last Done: 03/25/25 16:42
ED- Cardiac Assessment Last Done: 03/25/25 16:42
Discharge Date and Time
Print Language: MICRONESIAN
--- NOTE | 2025-03-25 17:15 | HPS.HSE ---
Family Physician
-
Family Physician: Sari Deleon
Chief Complaint
-
Chest pain
History of Present Illness
49-year-old male with a past medical history of type 1 diabetes on insulin pump, hypertension, hyperlipidemia, obesity, and CAD status post stent placement in 2019 presents with worsening chest pain. Patient states he has been having chest pressure
for the last 3 weeks. He was seen at [facility], and had cardiac catheterization on 03/10/2025 that showed 70% ostial diagonal lesion. Cardiology recommended medical management, and told patient to come back to the ER if he has worsening
of his symptoms. Patient states that he has continued to have chest pressure throughout the last 3 weeks. On Saturday, he experienced chest pain while walking around the parking lot. He took a nitroglycerin, and the pain resolved. However, he
states he continues to have chest pressure currently, which he says is different from the chest pain. Associated symptoms include dyspnea. 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 He denies nausea,
vomiting. No constipation, no diarrhea. No dysuria. No fever.
Medical History
Past Medical History
Past Medical History: Reports CAD, GERD, HTN, Hypercholesterolemia and IDDM (DM1 on insulin pump)
Past Surgical History: Reports Other
Additional Past Surgical History:
Cardiac stent
Jaw Surgery
Throat nodule removal
Right fifth metatarsal surgery
Social History
Tobacco: Non-smoker
Alcohol: None
Drug: None
Employment: Employed
Family History
Family History: Not pertinent
Allergies / Home Medications
Allergies reflects when Allergies were last updated in [facility].
Home Medications with original date entered in [facility]
Allergy/Medication List:
Allergies
Allergy/AdvReac Type Severity Reaction Status Date / Time
No Known Allergies Allergy Verified 03/10/25 10:06
Home Medications Table - record
�Medication �Instructions �Recorded �Confirmed
clopidogrel 75 mg tablet 75 mg PO DAILY Blood clot 12/29/21 03/10/25
prevention/tx
cyanocobalamin (vitamin B-12) 1,000 mcg PO DAILY Supplement 12/29/21 03/10/25
1,000 mcg tablet
ezetimibe 10 mg tablet 10 mg PO DAILY High cholesterol 12/29/21 03/10/25
omeprazole 20 mg tablet,delayed 40 mg PO BID Gastrointestinal Issue 12/30/21 03/10/25
release
alirocumab 75 mg/mL subcutaneous 75 mg SC Q14D High Cholesterol ##0 12/31/21 03/10/25
pen injector (Praluent Pen)
Patient Own Insulin Pump 1 sliding scale dose SC .VIA FIASP 03/10/25 03/10/25
Diabetes
aspirin 81 mg chewable tablet 81 mg PO DAILY Blood Clot 03/10/25 03/10/25
Prevention/Tx
atorvastatin 80 mg tablet 80 mg PO DAILY High Cholesterol 03/10/25 03/10/25
tirzepatide 10 mg/0.5 mL 10 mg SC TU endocrine 03/10/25 03/10/25
subcutaneous pen injector
(Cristobal)
amlodipine 2.5 mg tablet 2.5 mg PO DAILY #30 tabs 03/12/25
metoprolol succinate 25 mg 25 mg PO BID #30 tabs 03/12/25
tablet,extended release 24 hr
nitroglycerin 0.4 mg sublingual 0.4 mg sublingual Q5-15M PRN chest 03/12/25
tablet pain #20 tabs
Review of Systems
-
A 12 point ROS was completed and negative except as noted: Yes
Physical Exam
Vital Signs
Vital Signs
Temp Pulse Resp BP Pulse Ox
97.5 F 81 20 142/119 98
03/25/25 14:14 03/25/25 16:40 03/25/25 16:40 03/25/25 16:40 03/25/25 17:03
Physical Exam
General: No Apparent Distress
HEENT: NormoCephalic, Anicteric and Moist mucous membranes
Respiratory: Clear
Cardiac: S1/S2 and Regular Rhythm
GI: Soft, Non Tender, Non Distended and Normal Bowel Sounds
Musculoskeletal: No Clubbing, No Cyanosis and No Edema
Skin: Warm and Dry
Neuro: AO x 3
Psych: Calm
Laboratory Results
-
03/25/25 14:21
03/25/25 14:21
Laboratory Results
Total Bilirubin Cancelled 03/25/25 14:21
AST Cancelled 03/25/25 14:21
ALT Cancelled 03/25/25 14:21
Alkaline Phosphatase Cancelled 03/25/25 14:21
Troponin I < 0.012 ng/ml 03/25/25 14:21
Impression/Plan
-
HPI: 49-year-old male with a past medical history of type 1 diabetes on insulin pump, hypertension, hyperlipidemia, obesity, and CAD status post stent placement in 2019 presents with worsening chest pain. Patient states he has been having chest
pressure for the last 3 weeks. He was seen at [facility], and had cardiac catheterization on 03/10/2025 that showed 70% ostial diagonal lesion. Cardiology recommended medical management, and told patient to come back to the ER if he has
worsening of his symptoms. Patient states that he has continued to have chest pressure throughout the last 3 weeks. On Saturday, he experienced chest pain while walking around the parking lot. He took a nitroglycerin, and the pain resolved.
However, he states he continues to have chest pressure currently, which he says is different from the chest pain. Associated symptoms include dyspnea. 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 He denies
nausea, vomiting. No constipation, no diarrhea. No dysuria. No fever.
#Angina
#Coronary artery disease
Cardiac catheterization on 03/10/2025 that showed 70% ostial diagonal lesion
Failed medical management
Cardiology recommends IV heparin drip
Trend troponins, trend EKG, n.p.o. after midnight for likely cardiac catheterization
Continue aspirin 81 mg daily, Plavix 75 mg daily, atorvastatin 80 mg daily, Toprol XL 25 mg twice a day, Zetia
#Type 1 diabetes on insulin pump
Consult diabetes nurse practitioner
Hold home Mounjaro
#Gastroesophageal reflux disease
Continue PPI twice daily
#Hyperlipidemia
Continue statin, Zetia
#Obesity due to excess calories
Affects all aspects of care
DVT prophylaxis�heparin drip
Full code
Total time spent to see the patient on the floor, examine the patient, review data and lab results, discuss treatment plan with patient, nursing staff around 65 minutes.
[2025-03-25 17:56] LABS: Troponin I < 0.012 ng/ml
--- NOTE | 2025-03-25 17:57 | CON.CAR ---
Consultation
Consultation Request
Date/Time Consultation Requested: March 25, 2025
Date/Time Consultation Performed: March 25, 2025
Requesting Provider: Hospitalist service
Performing Provider: Dr. Manuel Escobar
Reason for Consultation: Chest pain
Medical History
-
Chief Complaint: Chest pain
History of Present Illness:
Patient is a 49-year-old male who presents to [facility] emergency department with complaint of chest pain.
He was hospitalized at [facility] March 10 to March 12, 2025 with chest pain. During that hospitalization troponin values peaked at 0.014.
Concern for unstable angina remained in ultimately he underwent coronary angiography March 10, 2025 with results noted below. Essentially, the first diagonal is a large caliber vessel with 80% ostial stenosis. Decision was to pursue aggressive
medical therapy and risk factor modification for secondary CAD prevention. If the patient were to have persistent symptoms despite maximally tolerated antianginal therapy there could be consideration for high risk intervention of the ostial first
diagonal at the potential risk of plaque shift into the LAD requiring bifurcation stenting adding further to the complexity of the procedure.
He was discharged to home on March 10, 2025.
Ever since discharge and preceding his admission he has continued to have a pressure type sensation at his left upper chest. This is not necessarily worsened with physical activity or body position. He does note that if he pushes hard enough he
can reproduce that pain.
Separately he describes having a sharper midsternal chest discomfort that occurred while walking at work 2 days ago. With sublingual nitroglycerin and rest this resolved within approximately 5 minutes. This pain has not recurred. He is very
concerned about his ongoing left upper chest pressure. He is also very concerned about his ongoing exertional fatigue which he says has worsened since his coronary catheterization March 10, 2025.
Evaluation in the emergency department thus far find troponin levels that are undetectable x 2 and EKGs which are unchanged x 2.
Past medical history:
CAD s/p TN with ramus PCI with thrombus embolizing into apical LAD s/p PCI 11/2018
HTN
HLD
DM, poorly controlled
GERD
ECHO 02/05/22: EF 60-65%, mild cLVH, trace MR, aortic sclerosis, trace TR
-03/11/2025: Echo: LV: Lumason utilized to improve endocardial definition. EF 72%. RV: Normal, LA: Normal, RA: Normal, AV: Sclerotic. No AI. MV: No MR, TV: No TR
-03/10/2025: Cath: LM: Patent, LAD: Large caliber giving 2 major diagonal branches. Percent ostial/proximal stenosis. D2 is moderate with 70% ostial stenosis. The mid LAD has 50%. Apical LAD has 50-60% proximal to previously stented segment.
RI: Large-caliber. Ostial stent is widely patent, LCx: Gives rise to 2 major obtuse marginal branches with minor irregularities. RCA: Large-caliber vessel. Diffuse plaque in the PDA which appears angiographically stable.
Social History
Tobacco: Non-Smoker
Alcohol: None
Drug: None
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
Family History
Family History: Reviewed & Not Pertinent
Allergies / Home Medications
Allergy/AdvReac Type Severity Reaction Status Date / Time
No Known Allergies Allergy Verified 03/10/25 10:06
�Medication �Instructions �Recorded �Confirmed �Type
clopidogrel 75 mg tablet 75 mg PO DAILY Blood clot 12/29/21 03/10/25 History
prevention/tx
cyanocobalamin (vitamin B-12) 1,000 mcg PO DAILY Supplement 12/29/21 03/10/25 History
1,000 mcg tablet
ezetimibe 10 mg tablet 10 mg PO DAILY High cholesterol 12/29/21 03/10/25 History
omeprazole 20 mg tablet,delayed 40 mg PO BID Gastrointestinal Issue 12/30/21 03/10/25 History
release
alirocumab 75 mg/mL subcutaneous 75 mg SC Q14D High Cholesterol ##0 12/31/21 03/10/25 History
pen injector (Praluent Pen)
Patient Own Insulin Pump 1 sliding scale dose SC .VIA FIASP 03/10/25 03/10/25 History
Diabetes
aspirin 81 mg chewable tablet 81 mg PO DAILY Blood Clot 03/10/25 03/10/25 History
Prevention/Tx
atorvastatin 80 mg tablet 80 mg PO DAILY High Cholesterol 03/10/25 03/10/25 History
tirzepatide 10 mg/0.5 mL 10 mg SC TU endocrine 03/10/25 03/10/25 History
subcutaneous pen injector
(Cristobal)
amlodipine 2.5 mg tablet 2.5 mg PO DAILY #30 tabs 03/12/25 Rx
metoprolol succinate 25 mg 25 mg PO BID #30 tabs 03/12/25 Rx
tablet,extended release 24 hr
nitroglycerin 0.4 mg sublingual 0.4 mg sublingual Q5-15M PRN chest 03/12/25 Rx
tablet pain #20 tabs
Review of Systems
-
History Source: Patient
All other systems: Negative unless noted
Constitutional: Fatigue
EENT: No Symptoms
Respiratory: No Symptoms
Cardiac: Chest Pain
Abdomen/GI: No Symptoms
: No Symptoms
Musculoskeletal: No Symptoms
Neurological: No Symptoms
Endocrine: No Symptoms
Hematologic/Lymphatic: No Symptoms
Physical Exam
Vital Signs
Temp Pulse Resp BP Pulse Ox
97.5 F 83 22 171/101 96
03/25/25 14:14 03/25/25 17:30 03/25/25 17:30 03/25/25 17:00 03/25/25 17:45
Lab Results
03/25/25 14:21
03/25/25 14:21
Troponin I < 0.012 ng/ml 03/25/25 17:21
Physical Exam
General: Well Developed, Well Nourished, No Apparent Distress and Comfortable
HEENT: Normocephalic, Anicteric and Moist Mucous Membranes
Respiratory: Clear, Wheezes and Non Labored Respirations
Cardiac: S1/S2 (No S3 no S4, there is a grade 1/6 apical holosystolic murmur no rubs. PMI is normally placed.) and Regular Rhythm
Breast: Deferred by me
GI: Soft, Non Tender, Non Distended and Normal Bowel Sounds
Rectal: Deferred by Provider
Musculoskeletal: No Clubbing, No Cyanosis and No Edema
Skin: Warm and Dry
Neuro: Awake, Oriented and AO x 3
Psych: Calm
Impression / Plan
-
Impression:
Ongoing chest pain, uncertain if cardiac or noncardiac
CAD s/p TN with ramus PCI with thrombus embolizing into apical LAD s/p PCI 11/2018
HTN
HLD
DM, poorly controlled
GERD
ECHO 02/05/22: EF 60-65%, mild cLVH, trace MR, aortic sclerosis, trace TR
-03/11/2025: Echo: LV: Lumason utilized to improve endocardial definition. EF 72%. RV: Normal, LA: Normal, RA: Normal, AV: Sclerotic. No AI. MV: No MR, TV: No TR
-03/10/2025: Cath: LM: Patent, LAD: Large caliber giving 2 major diagonal branches. Percent ostial/proximal stenosis. D2 is moderate with 70% ostial stenosis. The mid LAD has 50%. Apical LAD has 50-60% proximal to previously stented segment.
RI: Large-caliber. Ostial stent is widely patent, LCx: Gives rise to 2 major obtuse marginal branches with minor irregularities. RCA: Large-caliber vessel. Diffuse plaque in the PDA which appears angiographically stable.
Recommendations:
He describes 2 different types of chest pain 1 which has been a constant chest pain for 3 to 4 weeks which is very likely noncardiac.
Then he describes chest discomfort 2 days ago while ambulating at work resolving with the sublingual nitroglycerin and rest which may certainly represent angina.
Based on his coronary angiography findings from March 10, 2025 while there is significant coronary artery disease plan at that point was to attempt to maximize antianginal therapy.
- Will increase metoprolol XL from 25 to 50 mg twice daily
- Continue amlodipine at 2.5 mg daily
- Continue to trend troponin and EKGs
- May need to continue to uptitrate antianginals
- Will need interventional cardiology to review case tomorrow
He has not had recurrence of the chest pain that he had 48 hours ago that was relieved with sublingual nitroglycerin. He continues to have the constant chest pressure he has had for approximately a month. I do not think this chest pressure
represents unstable coronary syndrome. I am not starting heparin at this point
[2025-03-25 18:14] LABS: INR 0.94; PT 13.1 Sec (11.4-14.6)
[2025-03-25 18:15] LABS: APTT 26.7 Sec (23.4-35.0)
[2025-03-25] MEDS: HEPARIN 4000 UNITS IV (18:47)
[2025-03-25] MEDS: HEPARIN 25000 UNITS/250 ML IV (18:48)
[2025-03-25] MEDS: TYLENOL 650 MG PO (18:53)
--- NOTE | 2025-03-25 20:19 | PTCARENOTE ---
Pt arrived onto floor @2019. Pt AAOx3 and able to walk into room with minimal assistance. Pt with no complaints of SOB at this time. Pt oriented to room and call piper; will continue to monitor
[2025-03-25 21:27] LABS: Glucose - Point of Care 112 mg/dl (70-99)
[2025-03-25] MEDS: TOPROL XL 50 MG PO (21:44)
[2025-03-25] MEDS: PROTONIX 40 MG PO (21:45)
[2025-03-25] MEDS: PT'S OWN INSULIN PUMP - NovoLOG 0.4 UNIT SC (21:45)
[2025-03-25 21:49] LABS: Troponin I < 0.012 ng/ml
[2025-03-26 01:22] LABS: INR 1.03; PT 14.0 Sec (11.4-14.6)
[2025-03-26 01:49] LABS: APTT > 200 Sec (23.4-35.0)
[2025-03-26 03:04] VITALS: BP 116/64
[2025-03-26 06:04] LABS: Glucose - Point of Care 106 mg/dl (70-99)
[2025-03-26] MEDS: PT'S OWN INSULIN PUMP - NovoLOG 1.2 UNIT SC (06:11)
[2025-03-26 06:30] VITALS: BMI 34.9
[2025-03-26 07:25] VITALS: BP 125/69
[2025-03-26] MEDS: NORVASC 2.5 MG PO (08:48)
[2025-03-26] MEDS: LIPITOR 80 MG PO (08:48)
[2025-03-26] MEDS: ZETIA 10 MG PO (08:50)
--- NOTE | 2025-03-26 08:50 | W.PN.CARDCBS ---
Addendum entered and electronically signed by Jocelyn Nielsen DO 03/26/25 19:01:
I saw and examined the patient.
The Network Admin's note was reviewed and I agree with the note.
Comment: Patient was seen and examined with at bedside. He states following administration of Imdur his chest pressure is better. He ambulated several times around unit without worsening or recurrent symptoms.
GEN:NAD, AAOx3
HEENT:mmm
LUNGS: CTA, no wheezes/rales
CV: Reg, S1/S2, no murmur,
ABD: soft, BS+, NT/ND
EXT: No edema, clubbing or cyanosis
Plan:
Chest pain or pressure with stable angina and history of known coronary artery disease with recent cardiac catheterization 03/10/2025 findings and planned reviewed
- Troponins undetectable
- Improved symptoms with the addition of Imdur
- Continue current medical therapy as listed in PA's note
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
Plan for discharge home today
Instructed to avoid strenuous activity
Can consider outpatient referral for cardiac rehab
ACS warning signs and when to seek immediate medical attention reviewed
Original Note:
Today's Communication / Plan
-
Consider discontinuation of heparin drip given troponin x 3 negative
Continue increased dose of Toprol 50 mg twice daily
Add Imdur 30 mg daily if BP allows
Continue aspirin, Plavix, amlodipine
Will review films with interventional cardiology once again.
Impression / Plan
-
Primary Tester/Lift Trucker: Dr. Robertson
Impression:
Presented 03/25/2025 with ongoing chest pain, uncertain if cardiac or noncardiac
CAD s/p [place] with ramus PCI with thrombus embolizing into apical LAD s/p PCI 11/2018
HTN
HLD
DM, poorly controlled
GERD
ECHO 02/05/22: EF 60-65%, mild cLVH, trace MR, aortic sclerosis, trace TR
Echo 03/11/2025: LV: Lumason utilized to improve endocardial definition. EF 72%. RV: Normal, LA: Normal, RA: Normal, AV: Sclerotic. No AI. MV: No MR, TV: No TR
Cath 03/10/2025: LM: Patent, LAD: Large caliber giving 2 major diagonal branches. D1 80% ostial/proximal stenosis. D2 is moderate with 70% ostial stenosis. The mid LAD has 50%. Apical LAD has 50-60% proximal to previously stented segment. RI:
Large-caliber. Ostial stent is widely patent, LCx: Gives rise to 2 major obtuse marginal branches with minor irregularities. RCA: Large-caliber vessel. Diffuse plaque in the PDA which appears angiographically stable.
Recommendations:
Presented 03/25/2025 with ongoing chest pain, uncertain if cardiac or noncardiac
He describes 2 different types of chest pain 1 which has been a constant chest pain for 3 to 4 weeks which is very likely noncardiac.
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
Troponin x 3 undetectable this admission. EKG without ischemic changes x 3. Given his consistent chest pressure has been ongoing for 3 to 4 weeks with 3 sets of negative troponin do not think this is unstable coronary syndrome. Consider
discontiuation of IV heparin drip.
Based on his coronary angiography findings from March 10, 2025 while there is significant coronary artery disease of D1. Plan was to attempt to maximize antianginal therapy. PCI of D1 stenosis would considered high risk procedure
- Increase metoprolol XL from 25 to 50 mg twice daily (first dose of 50 mg given 03/25 in evening)
- Continue amlodipine at 2.5 mg daily
- Consider adding Imdur 30 mg daily if BP tolerates
- Continue aspirin and Plavix
- Will review with interventional cardiology. May plan for outpatient PCI if symptoms do not improve with uptitration of medical therapy
Echo was performed 03/11/2025 which showed hyperdynamic LV without significant wall motion abnormality. No need to repeat this admission
Hyperlipidemia with lipids 03/11/2025 at goal. TC 83, HDL 41, LDL 21, triglycerides 108 continue high-dose atorvastatin, Praluent and Zetia
HPI 03/25/2025:
History of Present Illness:
Patient is a 49-year-old male who presents to [facility] emergency department with complaint of chest pain.
He was hospitalized at [facility] March 10 to March 12, 2025 with chest pain. During that hospitalization troponin values peaked at 0.014.
Concern for unstable angina remained and ultimately he underwent coronary angiography March 10, 2025 with results noted below. Essentially, the first diagonal is a large caliber vessel with 80% ostial stenosis. Decision was to pursue aggressive
medical therapy and risk factor modification for secondary CAD prevention. If the patient were to have persistent symptoms despite maximally tolerated antianginal therapy there could be consideration for high risk intervention of the ostial first
diagonal at the potential risk of plaque shift into the LAD requiring bifurcation stenting adding further to the complexity of the procedure.
He was discharged to home on March 10, 2025.
Ever since discharge and preceding his admission he has continued to have a pressure type sensation at his left upper chest. This is not necessarily worsened with physical activity or body position. He does note that if he pushes hard enough he
can reproduce that pain.
Separately he describes having a sharper midsternal chest discomfort that occurred while walking at work 2 days ago. With sublingual nitroglycerin and rest this resolved within approximately 5 minutes. This pain has not recurred. He is very
concerned about his ongoing left upper chest pressure. He is also very concerned about his ongoing exertional fatigue which he says has worsened since his coronary catheterization March 10, 2025.
Evaluation in the emergency department thus far find troponin levels that are undetectable x 2 and EKGs which are unchanged x 2.
Progress Note - Tester/Lift Trucker
Subjective
Date of Service: March 26, 2025
Patient seen and examined. He continues to have dull left-sided chest pressure which is constant and has been ongoing for 3-4 weeks. Does note when he exerts himself pressure does become slightly more intense. Symptoms are unchanged compared to
prior admission.
Objective
Labs:
03/25/25 14:21
Labs
Hgb 15.7 g/dL (13.0-18.0) 03/25/25 14:21
Hct 46.2 % (39.0-52.0) 03/25/25 14:21
Plt Count 259 10^3/uL (130-400) 03/25/25 14:21
PT 14.0 Sec (11.4-14.6) 03/26/25 00:57
INR 1.03 03/26/25 00:57
APTT > 200 Sec (23.4-35.0) H* 03/26/25 00:57
Sodium 137 mmol/L (135-145) 03/25/25 14:21
Potassium mmol/L (3.5-5.1) 03/25/25 14:21
BUN 19 mg/dl (9-20) 03/25/25 14:21
Creatinine 0.9 mg/dL (0.7-1.3) 03/25/25 14:21
Glucose 160 mg/dl (70-99) H 03/25/25 14:21
Troponins
03/25/25 03/25/25 03/25/25
14:21 17:21 21:12
Troponin I < 0.012 < 0.012 < 0.012
Vital Signs and I&O:
Vital Signs
Temp Pulse Resp BP Pulse Ox
97.9 F 75 16 125/69 95
03/26/25 07:25 03/26/25 07:25 03/26/25 07:25 03/26/25 07:25 03/26/25 07:25
Vital Signs
Temp Pulse Resp BP Pulse Ox
97.9 F 75 16 125/69 95
03/26/25 07:25 03/26/25 07:25 03/26/25 07:25 03/26/25 07:25 03/26/25 07:25
Intake & Output
03/24/25 03/25/25 03/26/25 03/27/25
06:59 06:59 06:59 06:59
Intake Total 240 / 240
Output Total 500 / 500
Balance -260 / -260
Physical Exam
Physical Exam
GEN: No distress, awake, Ox3
HEENT: supple, anicteric, mmm
LUNGS: CTA, no wheezes/rales
CV: Reg, S1/S2, no murmur, rub or gallop
ABD: soft, BS+, NT/ND
EXT: No edema, clubbing or cyanosis
NEURO: Gross non-focal
SKIN: No rash, warm, dry, pink
[2025-03-26] MEDS: PROTONIX 40 MG PO (08:51)
[2025-03-26] MEDS: VITAMIN B-12 1000 MCG PO (08:51)
[2025-03-26] MEDS: LOW STRENGTH ASPIRIN 81 MG PO (08:51)
[2025-03-26] MEDS: TOPROL XL 50 MG PO (08:52)
[2025-03-26] MEDS: PLAVIX 75 MG PO (08:53)
--- NOTE | 2025-03-26 09:52 | W.PN.HOSP.TC ---
Today's Communication/Plan
-
Cleared by cardiology for discharge today on Imdur
Assessment / Plan
Assessment / Plan
HPI: 49-year-old male with a past medical history of type 1 diabetes on insulin pump, hypertension, hyperlipidemia, obesity, and CAD status post stent placement in 2019 presents with worsening chest pain. Patient states he has been having chest
pressure for the last 3 weeks. He was seen at [facility], and had cardiac catheterization on 03/10/2025 that showed 70% ostial diagonal lesion. Cardiology recommended medical management, and told patient to come back to the ER if he has
worsening of his symptoms. Patient states that he has continued to have chest pressure throughout the last 3 weeks. On Saturday, he experienced chest pain while walking around the parking lot. He took a nitroglycerin, and the pain resolved.
However, he states he continues to have chest pressure currently, which he says is different from the chest pain. Associated symptoms include dyspnea. 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 He denies
nausea, vomiting. No constipation, no diarrhea. No dysuria. No fever.
#Angina
#Coronary artery disease
Cardiac catheterization on 03/10/2025 that showed 70% ostial diagonal lesion
Failed medical management
Serial troponins negative
Appreciate cardiology input, patient started on Imdur 30 mg daily, Toprol XL increased to 50 mg twice a day
Continue aspirin 81 mg daily, Plavix 75 mg daily, atorvastatin 80 mg daily, Zetia
Patient ambulated around the hallways without any recurrence of chest pain or pressure
Medically stable and cleared by cardiology for discharge today
#Type 1 diabetes on insulin pump
Consult diabetes nurse practitioner
Resume Cristobal upon dc
#Gastroesophageal reflux disease
Continue PPI twice daily
#Hyperlipidemia
Continue statin, Zetia
#Obesity due to excess calories
Affects all aspects of care
DVT prophylaxis�SCDs
Full code
Physical Exam
General: Obese, no acute distress
HEENT: Normocephalic, Atraumatic, EOMI, MMM
Respiratory: Clear to Auscultation bilaterally
Cardiac: Normal S1/S2, Regular Rate and Rhythm
GI: Soft, Nontender, Nondistended, Normal Bowel Sounds
Extremities: No Clubbing, Cyanosis, or Edema
Neuro: Nonfocal/Grossly Intact
Psych: Calm, Cooperative
Derm: No Visible lesions
Anticipated Discharge: Today
Subjective/Interval History
-
Date of Service: March 26, 2025
Patient reports his chest pressure is 1 out of 10 in intensity. Denies shortness of breath at rest. No fever, no vomiting.
Objective Data
-
Labs:
Laboratory Results
03/26/25 03/26/25
00:57 09:49
PT 14.0
INR 1.03
APTT > 200 H* Pending
Sodium Pending
Potassium Pending
Chloride Pending
Carbon Dioxide Pending
BUN Pending
Creatinine Pending
Glucose Pending
Calcium Pending
Vital Signs:
Vital Signs
Temp Pulse Resp BP Pulse Ox
97.9 F 75 16 125/69 95
03/26/25 07:25 03/26/25 07:25 03/26/25 07:25 03/26/25 07:25 03/26/25 07:25
I&O
03/25/25 03/26/25 03/27/25
06:59 06:59 06:59
Intake Total 240 / 240
Output Total 500 / 500
Balance -260 / -260
[2025-03-26 10:16] LABS: APTT 119.2 Sec (23.4-35.0)
[2025-03-26 10:58] LABS: Blood Urea Nitrogen 17 mg/dl (9-20); Calcium 9.4 mg/dl (8.4-10.2); Carbon Dioxide 25 mmol/L (22-30); Chloride 108 mmol/L (98-107); Estimated Creatinine Clearance 121 ml/min; Glucose 122 mg/dl (70-99); Magnesium 2.0 mg/dl (1.6-2.3); Potassium 4.2 mmol/L (3.5-5.1); Sodium 139 mmol/L (135-145); eGFR > 60.00
[2025-03-26 11:03] VITALS: BP 125/68
--- NOTE | 2025-03-26 11:11 | CM ---
Recently at [facility] 03/10/25 to 03/12/25 for cardiac cath. Initial assessment completed with patient who lives with his and 3 sons (18 y/o twins and 25 y/o) in a 2 story home plus basement with B/B on 2nd and 1/2 bath on 1st, 2 steps to enter.
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 Patient has an insulin pump and Dexcom. No other DME in the home. No in-home services. No VA benefits. No psychiatric hospitalizations. No HC-POA. PCP is
Sari Deleon. Pharmacy is [facility] in [facility]. Discharge POC: Anticipate home with no needs.
[2025-03-26 12:05] LABS: Glucose - Point of Care 103 mg/dl (70-99)
[2025-03-26] MEDS: IMDUR (EXTENDED RELEASE) 30 MG PO (12:15)
[2025-03-26] MEDS: PT'S OWN INSULIN PUMP - NovoLOG SC (12:34)
[2025-03-26 15:27] VITALS: BP 113/65
--- NOTE | 2025-03-26 16:03 | W.DCSUMMARY ---
Discharge Summary
Discharge Data
Date of Admission: 03/25/25
Date of Discharge: 03/26/25
-
Pending Results: No
Hospital Course
Discharge diagnosis:
Stable angina
Coronary artery disease
Type 1 diabetes on insulin pump
Gastroesophageal reflux disease
Hyperlipidemia
Obesity due to excess calories
Consults: Cardiology
Hospital course:
49-year-old male with a past medical history of type 1 diabetes on insulin pump, hypertension, hyperlipidemia, obesity, and CAD status post stent placement in 2019 presented with worsening chest pain, and was admitted admitted with stable angina.
Patient has coronary artery disease, with recent cardiac catheterization on 03/10/2025 showing 70% stenosis of the ostial diagonal lesion. Patient was seen in conjunction with cardiology. Serial troponins were negative. Cardiology started him on
Imdur 30 mg daily, and increased his Toprol XL to 50 mg twice a day. Patient felt remarkably better. He ambulated around the hallways without any recurrence of chest pain or pressure. He can continue his aspirin 81 mg daily, Plavix 75 mg daily,
and atorvastatin 80 mg daily. He is medically stable and cleared by cardiology for discharge. He needs to follow-up with his usual window maker, Dr. Robertson in the office, for possible outpatient intervention of his 70% stenosis of the ostial
diagonal lesion. He also needs to follow-up with his PCP in 1 week.
Disposition: Home self-care
Discharge planning: Required 36 minutes
Discharge Plan
-
Patient Disposition: Home (Routine Discharge)
Discharge Diagnosis/Procedures: Angina, coronary artery disease
Condition: Fair
Diet: Low Fat, Low Cholesterol and Diabetic, Carb Controlled
Activity: As tolerated
Driving Restrictions: As prior to admission
Activity Restrictions/Additional Instructions:
Cardiology increased your metoprolol succinate to 50 mg twice a day, and started you on isosorbide mononitrate 30 mg daily.
Please follow-up with your usual window maker as soon as possible, and your primary care doctor in 1 week.
Referrals:
Brian Robertson MD [Active, Cardiology] - in less than 1 week
Sari Deleon MD [Family Provider] - in one week
Prescriptions:
New
metoprolol succinate 50 mg Tablet Extended Release 24 Hr
50 mg PO BID Qty: 60 0RF
isosorbide mononitrate 30 mg Tablet Extended Release 24 Hr
30 mg PO DAILY Qty: 30 0RF
Continued
clopidogrel 75 MG tablet
75 mg PO DAILY
cyanocobalamin (vitamin B-12) 1,000 MCG tablet
1,000 mcg PO DAILY
ezetimibe 10 MG tablet
10 mg PO DAILY
omeprazole 20 MG tablet,delayed release (DR/EC)
40 mg PO BID
Praluent Pen 75 mg/mL Pen Injector
75 mg SC Q14D Qty: 0
Mounjaro 10 mg/0.5 mL Pen Injector
10 mg SC TU
Patient Own Insulin Pump
1 sliding scale dose SC .VIA FIASP
atorvastatin 80 MG tablet
80 mg PO DAILY
aspirin 81 MG tablet,chewable
81 mg PO DAILY
amlodipine 2.5 mg Tablet
2.5 mg PO DAILY Qty: 30 0RF
nitroglycerin 0.4 mg tablet, sublingual
0.4 mg sublingual Q5-15M PRN (Reason: chest pain) Qty: 20 0RF
Discontinued
metoprolol succinate 25 mg Tablet Extended Release 24 Hr
25 mg PO BID Qty: 30 0RF
Discharge Orders:
Discharge Patient (As Directed); Ordered 03/26/25
Ordered By: Marv Stephen
Discharge Date and Time
Discharge Date/Time: 03/26/25 17:00
Print Language: ANGOLAN
--- NOTE | 2025-03-27 08:52 | CM ---
Patient was medically cleared for discharge to home with no additional skilled services on 03/26/25. Patient arranged for transport home.
== END 2025-03-26 17:00 | disposition home or self-care (01) | DRG 303 ==
LOC: 4 WEST ACU 18:26
PROVIDERS: Emergency Medicine; ADMITTING PHYSICIAN Family Medicine; CONSULT PHYSICIAN Internal Medicine Cardiovascular Disease; EMERGENCY PHYSICIAN Emergency Medicine; FAMILY PHYSICIAN Family Medicine
DX: I25.118 Atherosclerotic heart disease of native coronary artery with other forms of angina pectoris (principal); I10 Essential (primary) hypertension; K21.9 Gastro-esophageal reflux disease without esophagitis; E78.00 Pure hypercholesterolemia, unspecified; E66.09 Other obesity due to excess calories; E10.65 Type 1 diabetes mellitus with hyperglycemia; Z96.41 Presence of insulin pump (external) (internal); I25.2 Old myocardial infarction; Z79.02 Long term (current) use of antithrombotics/antiplatelets; Z79.82 Long term (current) use of aspirin; Z79.85 Long-term (current) use of injectable non-insulin antidiabetic drugs; Z79.4 Long term (current) use of insulin; Z95.5 Presence of coronary angioplasty implant and graft; Z68.34 Body mass index [BMI] 34.0-34.9, adult
CPT/HCPCS: 80048; 82962; 83735; 84484; 85025; 85610; 85730; 93005; 96365; 99284

== ENCOUNTER 2025-04-20 11:46 | Inpatient (IN) | payer OTHER, SELFPAY ==
[2025-04-20] VITALS (12 sets, daily range): BP systolic 99–153; BP diastolic 54–90; BMI 34.5
[2025-04-20 08:59] LABS: Glucose - Point of Care 175 mg/dl (70-99)
[2025-04-20 08:59] LABS: Hematocrit 47.5 % (39.0-52.0); Hemoglobin 16.3 g/dL (13.0-18.0); Mean Corp Hgb Conc. 34.3 g/dL (33.0-37.0); Mean Corpuscular Volume 92.6 fL (80.0-94.0); Platelet Count 231 10^3/uL (130-400); Red Cell Dist. Width 12.2 % (11.5-14.5)
[2025-04-20 09:06] LABS: INR 0.94; PT 12.9 Sec (11.4-14.6)
[2025-04-20 09:07] LABS: APTT 27.0 Sec (23.4-35.0)
[2025-04-20 09:10] LABS: Blood Urea Nitrogen 22 mg/dl (9-20); Calcium 9.1 mg/dl (8.4-10.2); Carbon Dioxide 27 mmol/L (22-30); Chloride 106 mmol/L (98-107); Estimated Creatinine Clearance 111 ml/min; Glucose 170 mg/dl (70-99); Potassium 4.4 mmol/L (3.5-5.1); Sodium 139 mmol/L (135-145); eGFR > 60.00
[2025-04-20 10:13] LABS: ACT-LR - POC 179 Seconds (116-155)
[2025-04-20 10:22] LABS: ACT-LR - POC 261 Seconds (116-155)
--- NOTE | 2025-04-20 10:52 | ITS.CL.CATH ---
[employer] - Catheterization
Cardiac Catheterization
Procedure Report:
LEFT HEART CATHETERIZATION
Date of Procedure: April 20, 2025
Referring: Dr. Brian Robertson
PROCEDURES:
1. Left heart catheterization with coronary and single-plane left ventriculography
INDICATION: This is a 49-year-old gentleman with diabetes mellitus and prior history of coronary artery disease and stenting of a ramus intermedius branch. He has known coronary artery disease with a high-grade first diagonal stenosis which arises
proximally from the LAD and mid LAD stenosis. He is now on 3 antianginal medications and has been experiencing chest tightness over periods of minimal exertion. Now referred for coronary angiography.
ACCESS: Right common femoral artery, 6 Hungarian sheath
HEMODYNAMICS : (mmHg)
AO (s/d) : 124/68, 89
LV (s/d) : 132/10
LVEDP : 19
CORONARY FINDINGS
DOMINANCE: Right
LEFT MAIN: Normal
LEFT ANTERIOR DESCENDING: The LAD arises normally from the left main and runs in the anterior interventricular groove. A large first diagonal branch arises very proximally from the LAD and has a 95% ostial/proximal stenosis. The LAD just beyond
the diagonal branch has an eccentric 50-60% stenosis and the remainder of the vessel has luminal irregularities. The apical LAD has a 60% stenosis. The iFR in the LAD measures well below the ischemic threshold at 0.83, 0.83, and 0.83. The Omni
wire was withdrawn to the guide catheter tip demonstrating no baseline drift.
RAMUS / OM1: The stents in the moderate caliber ramus intermedius / OM1 branch are widely patent
CIRCUMFLEX: The circumflex supplies a small OM2 and continues in the AV groove supplying a small posterolateral branch
RIGHT CORONARY ARTERY: The right coronary artery is a moderate caliber dominant vessel. There is a 50% distal stenosis and 50-60% stenosis near the crux of the vessel. The PDA is a small to medium caliber vessel with tandem 80% to 90% stenosis in
the mid vessel
VENTRICULOGRAPHY: Left ventriculography is performed in an BOUCHER projection. The digital single-plane left ventricular ejection fraction is estimated at 60%
HEMODYNAMIC ASSESSMENT OF THE LAD WITH A VOLCANO OMNI WIRE: The origin of the left main was cannulated with a 6 Fr XB 3.5 guide catheter. Intravenous heparin was administered and the ACT was followed during the procedure. A total of 9000 units of
heparin was required to achieve an ACT above 250 seconds. Two hundred micrograms of intracoronary nitroglycerin was given through the guide catheter. A [place] Omni wire was advanced to the guide catheter tip and normalized to guide catheter
pressure. The Omni wire was then carefully manipulated across the stenosis in the mid LAD and advanced to the distal vessel. The iFR serially measured well below the ischemic threshold at 0.83, 0.83, and 0.83. The majority of the step up occurred
across the more proximal lesion.
SEDATION: 58 minutes of procedural sedation was utilized. An independent biomedical field service engineer was present to assist with and help manage the patient's level of consciousness and physiologic status.
RADIATION SUMMARY: Fluoro Time (min): 6.2, Dose (mGy): 503, DAP (Gy.cm2) : 43
Closure Device: TR band
CONCLUSIONS
1. Multivessel coronary artery disease with high-grade stenosis in the mid LAD just beyond a very proximally arising large diagonal branch which has a 95% ostial stenosis. The IFR in the LAD measured well below the ischemic threshold at 0.83,
0.83, and 0.83. Angiographically significant coronary disease is noted in the distal RCA and mid PDA.
2. Preserved LV systolic function
RECOMMENDATIONS
1. Will consult CT surgery/Dr. Humphries to evaluate. Patient symptoms have been crescendo in nature occurring at lower levels of exertion and sometimes with minimal exertion such as walking across a parking lot.
Copy to: Dr. Brian Robertson
--- NOTE | 2025-04-20 12:18 | PTCARENOTE ---
Pt received post procedure awake, alert and oriented. Right groin site WNL. Room air sat 96%. Denies any chest pain or sob.
[2025-04-20] MEDS: NSS 1000 IV (12:25)
[2025-04-20 13:35] LABS: Glucose - Point of Care 104 mg/dl (70-99)
--- NOTE | 2025-04-20 14:37 | CM ---
Chart reviewed. Patient is independent of ADLS, lives with his in a 2 STH, 2STE, 0 DME. Plan is for the patient to return home. CM to follow
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
[2025-04-20] MEDS: LIPITOR 80 MG PO (17:27)
[2025-04-20] MEDS: NORVASC 2.5 MG PO (17:27)
[2025-04-20 17:31] LABS: Glucose - Point of Care 122 mg/dl (70-99)
[2025-04-20] MEDS: PT'S OWN INSULIN PUMP - NovoLOG 17.8 UNIT SC (18:50)
[2025-04-20] MEDS: TOPROL XL 50 MG PO (20:46)
[2025-04-20] MEDS: PROTONIX 40 MG PO (20:46)
[2025-04-20] MEDS: PT'S OWN INSULIN PUMP - NovoLOG 1.75 UNIT SC (20:50)
[2025-04-20 20:51] LABS: Glucose - Point of Care 133 mg/dl (70-99)
--- NOTE | 2025-04-20 22:48 | PTCARENOTE ---
Received pt at change of shift, aaox3, admits to 'chest pressure' 1-08/24. Pt was made aware that per dr. Yandel Verdin gtt can be initiated if pain/pressure is still present. Pt refused to be initiated in nitro stating 'is not bad, I don't want to as
I am going to be discharged tomorrow. Nitro makes me lightheaded and gives me headache'. Pt asleep at this time with no complaints, SR on the monitor, HR 70's. bp 106/58. R groin cath site with CDI dsg, no swelling or bleeding noted. Call piper
within reach, POC ongoing.
[2025-04-21 03:46] VITALS: BP 117/70
[2025-04-21 04:19] LABS: Hematocrit 41.7 % (39.0-52.0); Hemoglobin 14.1 g/dL (13.0-18.0); Mean Corp Hgb Conc. 33.8 g/dL (33.0-37.0); Mean Corpuscular Volume 90.3 fL (80.0-94.0); Platelet Count 207 10^3/uL (130-400); Red Cell Dist. Width 12.5 % (11.5-14.5)
[2025-04-21 04:34] LABS: INR 1.03; PT 13.8 Sec (11.4-14.6)
[2025-04-21 04:35] LABS: APTT 28.0 Sec (23.4-35.0)
[2025-04-21 04:42] LABS: ALT (SGPT) < 10 U/L (0-50); AST (SGOT) 16 U/L (17-59); Albumin 3.6 g/dl (3.5-5.0); Alkaline Phosphatase 117 U/L (38-126); Blood Urea Nitrogen 17 mg/dl (9-20); Calcium 8.7 mg/dl (8.4-10.2); Carbon Dioxide 25 mmol/L (22-30); Chloride 110 mmol/L (98-107); Estimated Creatinine Clearance 124 ml/min; Glucose 121 mg/dl (70-99); HDL Cholesterol 34 mg/dl; LDL Cholesterol, Calculated 43 mg/dl; Potassium 3.8 mmol/L (3.5-5.1); Sodium 139 mmol/L (135-145); Total Protein 6.0 g/dl (6.3-8.2); Very Low Density Lipoprotein 33 mg/dl (0-30); eGFR > 60.00
[2025-04-21 08:18] VITALS: BP 132/63
[2025-04-21 08:20] VITALS: BMI 33.8
[2025-04-21 08:33] LABS: Glycohemoglobin (HgbA1c) 7.7 % (4.0-5.6)
[2025-04-21 08:52] LABS: Glucose - Point of Care 122 mg/dl (70-99)
--- NOTE | 2025-04-21 09:07 | W.PN.CARDCBS ---
Addendum entered and electronically signed by Ophelia Silva PA-C 04/21/25 17:00:
[id number]
Addendum entered and electronically signed by Charmaine Weeks MD 04/21/25 16:40:
I saw and examined the patient.
The Supervisor Laboratory's note was reviewed and I agree with the note.
Comment: Enrike is known to me from prior heart catheterization that I performed on him. Briefly he is a 49-year-old gentleman who follows with Dr. Brian Robertson with past medical history of hypertension, hyperlipidemia, poorly controlled diabetes,
GERD, coronary artery disease status post prior ramus PCI with thrombus embolizing into apical LAD status post PCI in November 2018 and status post heart catheterization yesterday found to have IFR positive mid LAD stenosis as well as significant ostial
diagonal disease along with distal RCA and mid PDA disease. Echocardiogram from March 11, 2025 shows LVEF that is preserved with no significant valvular abnormalities.
Vital signs and lab work reviewed. Patient is well-appearing, no acute distress with no further chest pain, family is at bedside, n normal carotid upstrokes, no carotid bruit, no JVD, lungs are clear to auscultation bilaterally, regular rate,
normal S1 and S2, no murmurs, rubs or gallops, abdomen is soft, nontender, nondistended with active bowel sounds, warm extremities without significant edema.
Recommendations:
1. Continue to hold Plavix as patient is undergoing evaluation with CT surgery for consideration for coronary artery bypass grafting.
2. Discussed with Dr. Nghia Salazar who was going to weigh in in regards to feasibility of MIDCAB with skip graft to LAD and diagonal however there is concerned that given the diagonal is high rising it would be difficult to get the skip graft
sequenced and therefore he is recommending traditional coronary artery bypass grafting and patient is scheduled with Dr. Jordan Humphries for surgery on Saturday, April 26, 2025.
3. Upon discussion with the patient given he is not having any unstable symptoms currently he would really like to go home over the weekend and not spend the weekend in the hospital while he awaits Plavix washout.
4. 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 Robertson, and we agreed that given patient is being maintained on multiple antianginal therapies that he would be stable to be discharged home today with plan to come back in on Saturday for coronary
artery bypass grafting with Dr. Jordan Humphries with bypasses to LAD, diagonal, and possibly RPDA if feasible intraoperatively. Recommended patient take it easy over the weekend and discussed and educated him in regards to signs and symptoms of ACS
so he knows when to seek medical attention and return to the hospital in case anything worsens. He will have sublingual nitroglycerin available upon discharge.
Charmaine Weeks MD, [facility], [facility]
Total time spent: 52 minutes
Original Note:
Today's Communication / Plan
-
CT surgery eval
plavix washout
Impression / Plan
-
Primary Program Manager Environmental Planning: Dr. Robertson
Assessment:
CAD
s/p NV with ramus PCI with thrombus embolizing into apical LAD s/p PCI 11/2018
s/p cath 04/20/25 with MV CAD involving mid LAD and distal RCA/mid PDA
HTN
HLD
DM, poorly controlled
GERD
Echo 03/11/2025: LV: Lumason utilized to improve endocardial definition. EF 72%. RV: Normal, LA: Normal, RA: Normal, AV: Sclerotic. No AI. MV: No MR, TV: No TR
Plan:
- Patient presented for elective cath due to unstable progressive anginal symptoms. Cardiac catheterization showed progression of LAD and RCA disease, resulting in CT surgery consult
- CABG eval underway, ? consideration for mid CAB
- plavix washout. continue asa
- timing of surgery TBD, however likely next week. meeting with surgeon later today to discuss
- currently CP free
- continue antianginal regimen of toprol, imdur, norvasc, cozaar
- if plan for DC and return next week, we discussed that he has SL nitro at home to use however if pain is not relieved with use of SL nitro, needs to return to ER
Progress Note - Program Manager Environmental Planning
Subjective
Date of Service: April 21, 2025
denies current CP
Objective
Labs:
04/21/25 03:56
04/21/25 03:56
Labs
Hgb 14.1 g/dL (13.0-18.0) 04/21/25 03:56
Hct 41.7 % (39.0-52.0) 04/21/25 03:56
Plt Count 207 10^3/uL (130-400) 04/21/25 03:56
PT 13.8 Sec (11.4-14.6) 04/21/25 03:56
INR 1.03 04/21/25 03:56
APTT 28.0 Sec (23.4-35.0) 04/21/25 03:56
Sodium 139 mmol/L (135-145) 04/21/25 03:56
Potassium 3.8 mmol/L (3.5-5.1) 04/21/25 03:56
BUN 17 mg/dl (9-20) 04/21/25 03:56
Creatinine 0.9 mg/dL (0.7-1.3) 04/21/25 03:56
Glucose 121 mg/dl (70-99) H 04/21/25 03:56
Vital Signs and I&O:
Vital Signs
Temp Pulse Resp BP Pulse Ox
97.9 F 73 20 132/63 95
04/21/25 08:15 04/21/25 08:30 04/21/25 08:15 04/21/25 08:18 04/21/25 08:15
Vital Signs
Temp Pulse Resp BP Pulse Ox
97.9 F 73 20 132/63 95
04/21/25 08:15 04/21/25 08:30 04/21/25 08:15 04/21/25 08:18 04/21/25 08:15
Intake & Output
04/19/25 04/20/25 04/21/25 04/22/25
07:59 07:59 07:59 07:59
Intake Total 480 / 480
Balance 480 / 480
Physical Exam
Physical Exam
GEN: No distress, awake, alert, oriented x3. sitting in chair
HEENT: supple, anicteric, mmm, eomi
LUNGS: CTA B/L, no wheezes/rales
CV: Reg, S1/S2, no murmur
ABD: soft, BS+, NT/ND
EXT: No cyanosis, clubbing, edema
NEURO: Gross non-focal
SKIN: Warm, pink, dry. No rash
[2025-04-21] MEDS: LOW STRENGTH ASPIRIN 81 MG PO (09:42)
[2025-04-21] MEDS: PROTONIX 40 MG PO (09:42)
[2025-04-21] MEDS: ZETIA 10 MG PO (09:42)
[2025-04-21] MEDS: TOPROL XL 50 MG PO (09:42)
[2025-04-21] MEDS: COZAAR 50 MG PO (09:43)
[2025-04-21] MEDS: IMDUR (EXTENDED RELEASE) 30 MG PO (09:44)
[2025-04-21] MEDS: PT'S OWN INSULIN PUMP - NovoLOG 18.65 UNIT SC (09:50)
--- NOTE | 2025-04-21 12:05 | CM ---
Reviewed preoperative and postoperative instructions and restrictions, along with showering guidelines. Gave patient 2 soaps and a Cardiac Surgery Book. Patient is agreeable to a home visit by CT Transitional RN. Plan is for the patient to return
home with CT Transitional RN.
[2025-04-21 12:49] VITALS: BP 113/75
[2025-04-21 12:54] LABS: Glucose - Point of Care 69 mg/dl (70-99)
[2025-04-21 13:14] LABS: Glucose - Point of Care 78 mg/dl (70-99)
--- NOTE | 2025-04-21 14:40 | W.DS.TRANS ---
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
-
Discharge Instructions:
Discharge Diagnosis/Procedures coronary artery disease
Diet Low Cholesterol,Diabetic, Carb Controlled
Activity No strenuous activity
Additional Activity including no heavy lifting
Bathing Restrictions OK to Shower
Instructions:
Stand-Alone Forms:
Changes to Home Medications: Yes
Discharge Medications:
DC Medications w/original date entered in [employer]
cyanocobalamin (vitamin B-12) 1,000 mcg tablet 1,000 mcg PO DAILY Supplement 12/29/21
ezetimibe 10 mg tablet 10 mg PO DAILY High cholesterol 12/29/21
omeprazole 20 mg tablet,delayed release 40 mg PO BID Gastrointestinal Issue 12/30/21
alirocumab 75 mg/mL subcutaneous pen injector (Praluent Pen) 75 mg SC Q14D High Cholesterol ##0 12/31/21
Patient Own Insulin Pump 1 sliding scale dose SC .VIA FIASP Diabetes 03/10/25
aspirin 81 mg chewable tablet 81 mg PO DAILY Blood Clot Prevention/Tx 03/10/25
atorvastatin 80 mg tablet 80 mg PO QPM High Cholesterol 03/10/25
tirzepatide 10 mg/0.5 mL subcutaneous pen injector (Mounjaro) 10 mg SC TU endocrine 03/10/25
nitroglycerin 0.4 mg sublingual tablet 0.4 mg sublingual Q5-15M PRN chest pain #20 tabs 03/12/25
isosorbide mononitrate 30 mg tablet,extended release 24 hr 30 mg PO DAILY #30 tabs 03/26/25
metoprolol succinate 50 mg tablet,extended release 24 hr 50 mg PO BID #60 tabs 03/26/25
amlodipine 2.5 mg tablet 2.5 mg PO QPM 04/20/25
coenzyme Q10 100 mg capsule (CoQ-10) 200 mg PO DAILY 04/20/25
losartan 50 mg tablet 50 mg PO DAILY 04/20/25
Home Medication Changes
plavix on hold
Pending Results: No
--- NOTE | 2025-04-21 14:44 | W.PN.UPDATE ---
Update Note
Progress Note Update
Patient was given pre-operative paperwork. He will return for PATs on Saturday and return for CABG with Dr. Humphries on Saturday04/26/25.
[2025-04-21 15:33] VITALS: BP 122/69
[2025-04-21] MEDS: PT'S OWN INSULIN PUMP - NovoLOG 18.75 UNIT SC (15:43)
--- NOTE | 2025-04-21 16:20 | PTCARENOTE ---
D/C'd pt's IV line & telemetry monitoring. Discussed D/C instructions w/pt & spouse. Pt ambulated out w/spouse driving him home.
== END 2025-04-21 16:20 | disposition home or self-care (01) | DRG 303 ==
LOC: IVU 11:46
PROVIDERS: Nurse Practitioner; Physician Assistant Surgical; ADMITTING PHYSICIAN Internal Medicine Interventional Cardiology; CONSULT PHYSICIAN Thoracic Surgery (Cardiothoracic Vascular Surgery); FAMILY PHYSICIAN Family Medicine
DX: I25.119 Atherosclerotic heart disease of native coronary artery with unspecified angina pectoris (principal); Z82.49 Family history of ischemic heart disease and other diseases of the circulatory system; Z95.5 Presence of coronary angioplasty implant and graft; E78.00 Pure hypercholesterolemia, unspecified; E66.9 Obesity, unspecified; E10.9 Type 1 diabetes mellitus without complications; Z96.41 Presence of insulin pump (external) (internal); I10 Essential (primary) hypertension; K21.9 Gastro-esophageal reflux disease without esophagitis; Z79.4 Long term (current) use of insulin; Z79.82 Long term (current) use of aspirin; Z79.899 Other long term (current) drug therapy
CPT/HCPCS: 71250; 80048; 80053; 80061; 82248; 82962; 83036; 85027; 85347; 85610; 85730; 86850; 86900; 86901; 93005; 93458; 93799; 93880; 93923; 93931; 93970; 99152; 99153; C1760; C1769; C1887; C1894; Q9967

== ENCOUNTER 2025-04-26 05:01 | Inpatient (IN) | payer OTHER, SELFPAY ==
--- NOTE | 2025-04-23 08:37 | CM ---
Met with Mr. Diaz in [facility]. He states prior to admission he resides with his spouse and three children in a two story home with two steps to enter. He states he has a full flight of steps to get to bedroom/full bathroom. He states he has a
powder room on the first floor. He states prior to admission he was independent with ambulation and adls. He states he does not have any DME in the home. He states he has a prescription plan and uses [facility]. He states his spouse,
mother and children will be available to assist in his care if needed. The discharge plan is to return home with his spouse and children with a home visit by the Transitional Care Nurse when medically stable.
We reviewed pre-and post-op procedures. .We reviewed the shower instructions. He already has the soap, written instructions and the Cardiothoracic Surgery Educational Booklet. We reviewed restrictions including sternal precautions and driving
restrictions. Discussed a home visit by the Transitional Care Nurse. He is agreeable to a home visit. The plan is for CABG on Saturday, April 26, 2025.
[2025-04-23 09:01] VITALS: BMI 35.1
[2025-04-23 09:04] LABS: Hematocrit 45.4 % (39.0-52.0); Hemoglobin 15.4 g/dL (13.0-18.0); Mean Corp Hgb Conc. 33.9 g/dL (33.0-37.0); Mean Corpuscular Volume 91.2 fL (80.0-94.0); Nucleated Red Blood Cells % 0 % (-); Platelet Count 225 10^3/uL (130-400); Red Cell Dist. Width 12.4 % (11.5-14.5)
[2025-04-23 09:12] LABS: Urine Character Clear (Clear)
[2025-04-23 09:21] LABS: INR 0.98; PT 13.3 Sec (11.4-14.6)
[2025-04-23 09:39] LABS: ALT (SGPT) < 10 U/L (0-50); AST (SGOT) 20 U/L (17-59); Albumin 4.4 g/dl (3.5-5.0); Alkaline Phosphatase 144 U/L (38-126); Blood Urea Nitrogen 21 mg/dl (9-20); Calcium 9.2 mg/dl (8.4-10.2); Carbon Dioxide 24 mmol/L (22-30); Chloride 107 mmol/L (98-107); Estimated Creatinine Clearance 123 ml/min; Glucose 148 mg/dl (70-99); Potassium 4.1 mmol/L (3.5-5.1); Sodium 139 mmol/L (135-145); Total Protein 7.1 g/dl (6.3-8.2); eGFR > 60.00
[2025-04-23 09:41] LABS: Urine Red Blood Cell 0-2 /HPF (0-2); Urine Squamous Cell 0-2 /LPF (Few); Urine White Cell 0-2 /HPF (0-5)
[2025-04-26] VITALS (13 sets, daily range): BP systolic 93–174; BP diastolic 56–88; BMI 35.1
[2025-04-26] MEDS: PROTONIX 40 MG PO (05:52)
[2025-04-26] MEDS: MAGNESIUM OXIDE 400 MG PO (05:52)
[2025-04-26] MEDS: BACTROBAN 2% OINTMENT 1 APPLIC NASAL ×2 (05:54→19:55)
--- NOTE | 2025-04-26 06:40 | W.CVOR.SURPR ---
CVOR Surgeon Immed Pre Op
-
I have examined this patient prior to performance of the scheduled procedure.
The patient's condition is unchanged from the time of the dictated/written History and
Physical and the patient is able to undergo the scheduled procedure.
[2025-04-26 07:43] LABS: ACT+ - POC 115 Seconds (82-134)
[2025-04-26 08:19] LABS: Urine Character Slightly Cloudy (Clear)
[2025-04-26 08:35] LABS: Urine Squamous Cell 0-2 /LPF (Few)
[2025-04-26 08:36] LABS: Urine Red Blood Cell 0-2 /HPF (0-2)
[2025-04-26 10:05] LABS: ACT+ - POC 714 Seconds (82-134)
[2025-04-26 10:19] LABS: B.E. - POC 0.4 mmol/L; Glucose - POC 154 mg/dl (70-99); HCO3 - POC 25 mmol/L (21-28); Hematocrit - POC 39 % PCV (42-52); Hemodilution- POC No; Hemoglobin Calculated - POC 13.4; Ionized Calcium - POC 1.18 mmol/L (1.15-1.33); Lactate - POC 0.95 mmol/L (0.36-0.75); O2 Saturation %Calculated-POC 99.6 % (94-98); PCO2 - POC 41 mmHg (35-48); PO2 - POC 187 mmHg (83-108); Potassium - POC 3.8 mmol/L (3.5-5.1); Sodium - POC 139 mmol/L (136-145); Specimen Type - POC Arterial; pH - POC 7.40 (7.35-7.45)
[2025-04-26 10:28] LABS: ACT+ - POC 606 Seconds (82-134)
[2025-04-26 11:00] LABS: ACT+ - POC 698 Seconds (82-134)
[2025-04-26 11:18] LABS: B.E. - POC 4.9 mmol/L; Glucose - POC 172 mg/dl (70-99); HCO3 - POC 28 mmol/L (21-28); Hematocrit - POC 34 % PCV (42-52); Hemodilution- POC Yes; Hemoglobin Calculated - POC 11.6; Ionized Calcium - POC 1.10 mmol/L (1.15-1.33); Lactate - POC 0.92 mmol/L (0.36-0.75); O2 Saturation %Calculated-POC 99.9 % (94-98); PCO2 - POC 37 mmHg (35-48); PO2 - POC 270 mmHg (83-108); POC Comment CPB; Potassium - POC 4.1 mmol/L (3.5-5.1); Sodium - POC 140 mmol/L (136-145); Specimen Type - POC Arterial; pH - POC 7.50 (7.35-7.45)
--- NOTE | 2025-04-26 11:19 | CM ---
Chart reviewed. Patient is in the OR today. Patient is independent of ADLS, lives with his and children in a 2 STH, 2 DEDRA, 0 DME. Plan is for the patient to return home with CT Transitional RN. CM to follow
[2025-04-26 11:28] LABS: ACT+ - POC 596 Seconds (82-134)
[2025-04-26 11:47] LABS: B.E. - POC 3.6 mmol/L; Glucose - POC 153 mg/dl (70-99); HCO3 - POC 27 mmol/L (21-28); Hematocrit - POC 35 % PCV (42-52); Hemodilution- POC Yes; Hemoglobin Calculated - POC 11.8; Ionized Calcium - POC 1.13 mmol/L (1.15-1.33); Lactate - POC 1.35 mmol/L (0.36-0.75); O2 Saturation %Calculated-POC 99.9 % (94-98); PCO2 - POC 36 mmHg (35-48); PO2 - POC 252 mmHg (83-108); POC Comment CPB; Potassium - POC 3.9 mmol/L (3.5-5.1); Sodium - POC 142 mmol/L (136-145); Specimen Type - POC Arterial; pH - POC 7.49 (7.35-7.45)
[2025-04-26 11:56] LABS: ACT+ - POC 500 Seconds (82-134)
[2025-04-26 12:12] LABS: ACT+ - POC 508 Seconds (82-134)
[2025-04-26 12:37] LABS: B.E. - POC 7.0 mmol/L; Glucose - POC 182 mg/dl (70-99); HCO3 - POC 31 mmol/L (21-28); Hematocrit - POC 32 % PCV (42-52); Hemodilution- POC Yes; Hemoglobin Calculated - POC 10.8; Ionized Calcium - POC 1.03 mmol/L (1.15-1.33); Lactate - POC < 0.30 mmol/L (0.36-0.75); O2 Saturation %Calculated-POC 100.0 % (94-98); PCO2 - POC 43 mmHg (35-48); PO2 - POC 588 mmHg (83-108); POC Comment CPB; Potassium - POC 4.3 mmol/L (3.5-5.1); Sodium - POC 140 mmol/L (136-145); Specimen Type - POC Arterial; pH - POC 7.47 (7.35-7.45)
[2025-04-26 13:00] LABS: B.E. - POC 1.5 mmol/L; Glucose - POC 139 mg/dl (70-99); HCO3 - POC 24 mmol/L (21-28); Hematocrit - POC 33 % PCV (42-52); Hemodilution- POC Yes; Hemoglobin Calculated - POC 11.3; Ionized Calcium - POC 1.09 mmol/L (1.15-1.33); Lactate - POC 1.60 mmol/L (0.36-0.75); O2 Saturation %Calculated-POC 99.9 % (94-98); PCO2 - POC 32 mmHg (35-48); PO2 - POC 312 mmHg (83-108); POC Comment WARM; Potassium - POC 4.1 mmol/L (3.5-5.1); Sodium - POC 143 mmol/L (136-145); Specimen Type - POC Arterial; pH - POC 7.50 (7.35-7.45)
[2025-04-26 13:02] LABS: ACT+ - POC 123 Seconds (82-134)
[2025-04-26 13:06] LABS: B.E. - POC -0.2 mmol/L; Glucose - POC 114 mg/dl (70-99); HCO3 - POC 27 mmol/L (21-28); Hematocrit - POC 30 % PCV (42-52); Hemodilution- POC Yes; Hemoglobin Calculated - POC 10.3; Ionized Calcium - POC 1.26 mmol/L (1.15-1.33); Lactate - POC 1.95 mmol/L (0.36-0.75); O2 Saturation %Calculated-POC 99.8 % (94-98); PCO2 - POC 54 mmHg (35-48); PO2 - POC 243 mmHg (83-108); Potassium - POC 3.8 mmol/L (3.5-5.1); Sodium - POC 142 mmol/L (136-145); Specimen Type - POC Arterial; pH - POC 7.31 (7.35-7.45)
--- NOTE | 2025-04-26 13:55 | W.IMMPOSTOP ---
Addendum entered and electronically signed by Jordan Humphries MD 04/26/25 15:37:
[id number]
Original Note:
Surgical Immed Post Op Note
-
CARDIAC SURGERY OPERATIVE NOTE:
Preoperative Dx:
MVCAD w/ escalating/unstable angina
Poorly-controlled DM
Postoperative Dx:
Same
Procedures:
1) Median sternotomy
2) Open/endoscopic exploration of L RA - significant calcifications - not utilized
3) Endoscopic harvest/prep of RLE GSV
4) CABG x 3 (YANET to LAD, GSV to D1, GSV to mid-RPDA)
5) ELAA (35mm AtriClip)
Surgeon:
Jordan Humphries M.D.
Assistants:
Manuela Porras R.N.F.A. - open/endo eval of L RA, first officer and flight instructor throughout, [id number] sternotomy closure
Paulo Braxton-CLuis Carlos - endoscopic harvest/prep of RLE GSV
Danica WuCLuis Carlos - [id number] sternotomy closure
Anesthesia:
Piter Marx M.D. and Buffy Gresham C.R.N.A.
Perfusion:
Lynn Nicholas, C.C.P.; XC: 96min, CPB: 122min
Findings:
YANET was a very healthy vessel w/ large ELD (3.0) and very brisk blood flow
GSV was healthy conduit w/ normal parr and ELD 3.5-4.5mm
LAD was visible on the epicardial surface, moderately dense scattered calcifications, ELD 3.0mm
D1 was visible on the epicardial surface, moderately dense scattered calcifications, ELD 2.75mm
RPDA was visible on the epicardial surface, very dense closely space calcifications, ELD 2.50mm
SERGIO w/ windsock morphology, occluded at base w/ 35mm AtriClip, confirmed w/ NOLBERTO
Post-NOLBERTO: Normal LV function w/o RWMA, no significant VHD
Slight difficulty emptying the heart on CPB - not responsive to vacuum, cannula reposition, no LSVC - unknown cause; manageable.
Good flow in all grafts on transit-time U/S flow probe assessment
Implants:
CT x 3 (left pleural, inferior mediastinal, superior mediastinal w/ tip in R pleural space)
Epicardial bi-polar V-wire x 1 (sewn in)
Sternal wires x 7
Sternal 'X' plate w/ 8 - 14mm screws
Sternal 'Square' plate w/ 4 - 10mm screws
Complications:
Missing 6-0 prolene needle - intraoperative CXR obtained & confirmed w/o retained foreign body by radiologist
Pt's foot with minor puncture from drape clamp - minor injury, no intervention required
Bleeding from small cephalad branch of YANET, successfully controlled w/ 7-0 prolene and small clip
Small bleed along anastomosis to RPDA, successfully controlled w/ 1 additional 7-0 prolene suture
Transfusions:
None
Condition:
GTTS: levophed 2, precedex 0.5, insulin 0.5
69 sinus w/ BBB, 115/65, CVP 18, 100%
Stable/guarded to CVICU
[2025-04-26 14:26] LABS: Glucose - Point of Care 112 mg/dl (70-99)
[2025-04-26 14:35] LABS: B.E. -1.7 mmol/L; HCO3 23.0 mmol/L (21-28); O2 Saturation % 99.0 % (94-98); PCO2 38 mmHg (35-48); PO2 97 mmHg (83-108); Potassium 4.3 mMOL/L (3.5-5.1); Sodium 138 mMOL/L (136-145)
[2025-04-26 14:38] LABS: Hematocrit 37.0 % (39.0-52.0); Hemoglobin 12.7 g/dL (13.0-18.0); Platelet Count 202 10^3/uL (130-400)
[2025-04-26 14:49] LABS: INR 1.33; PT 16.7 Sec (11.4-14.6)
[2025-04-26 14:50] LABS: APTT 29.2 Sec (23.4-35.0)
--- NOTE | 2025-04-26 15:00 | PTCARENOTE ---
Patient received from CVOR at 1410; Sedated and intubated; NSR on monitor; VSS; DP Doppler and x2 radial pulses present; Lungs diminished at bases; ETT size 8 positioned and secured at 23 cm R lip; Ventilator settings SIMV 15/550/5/FiO2 40%; CTx3
to -20 cm wall suction draining bloody drainage - no air leak, tidaling , or crepitus noted; Hypoactive BS; Bull catheter in place draining clear, yellow urine; Sternal incision glued, approximated, right groin puncture glued, approximated, and
CDI, RLE incision wrapped in KERRY wrap - CDI; R Brachial A-line in place, RIJ Cordis - all lines zeroed and leveled; PIVx1; Levo/insulin/precedex infusing - see nursing flowsheets for further details; see nursing documentation for further details.
[2025-04-26 15:02] LABS: Blood Urea Nitrogen 14 mg/dl (9-20); Estimated Creatinine Clearance > 125 ml/min; Glucose 118 mg/dl (70-99); Magnesium 2.4 mg/dl (1.6-2.3)
[2025-04-26] MEDS: DILAUDID 0.5 MG IV ×3 (15:08→23:08)
[2025-04-26] MEDS: NSS 500 IV (15:20)
[2025-04-26] MEDS: NOVOLOG FLEXPEN SC ×2 (15:20→18:57)
[2025-04-26 15:36] LABS: Glucose - Point of Care 173 mg/dl (70-99)
--- NOTE | 2025-04-26 15:39 | W.PN.CARDCBS ---
Today's Communication / Plan
-
RECOMMENDATION:
-Post op: Still intubated.
-Pressors weaning
-On insulin drip
Impression / Plan
-
Primary college tutor: Dr. Brian Robertson
Primary CARE physician: Dr. Carole Deleon
IMPRESSION:
- Coronary artery disease involving proximal-mid LAD, large diagonal branch, and PDA
Coronary artery bypass surgery with HART-LAD, SVG-D1, SVG-mid RPDA
-Old myocardial infarction
- Diabetes mellitus: Poorly controlled
- Essential hypertension
- Mixed hyperlipidemia
-GERD
RECOMMENDATION:
-Post op: Still intubated.
-Pressors weaning
-On insulin drip
Progress Note - Center Medical Specialist
Subjective
Date of Service: April 26, 2025
Intubated and sedated
Objective
Labs:
04/26/25 14:23
Labs
Hgb 12.7 g/dL (13.0-18.0) L 04/26/25 14:23
Hct 37.0 % (39.0-52.0) L 04/26/25 14:23
Plt Count 202 10^3/uL (130-400) 04/26/25 14:23
PT 16.7 Sec (11.4-14.6) H 04/26/25 14:23
INR 1.33 04/26/25 14:23
APTT 29.2 Sec (23.4-35.0) 04/26/25 14:23
Sodium 139 mmol/L (135-145) 04/23/25 08:37
Potassium 4.1 mmol/L (3.5-5.1) 04/23/25 08:37
BUN 14 mg/dl (9-20) 04/26/25 14:23
Creatinine 0.7 mg/dL (0.7-1.3) 04/26/25 14:23
Glucose 118 mg/dl (70-99) H 04/26/25 14:23
Vital Signs and I&O:
Vital Signs
Temp Pulse Resp BP Pulse Ox
96.8 F L 74 14 133/88 99
04/26/25 15:00 04/26/25 15:15 04/26/25 15:15 04/26/25 15:00 04/26/25 15:15
Vital Signs
Temp Pulse Resp BP Pulse Ox
96.8 F L 74 14 133/88 99
04/26/25 15:00 04/26/25 15:15 04/26/25 15:15 04/26/25 15:00 04/26/25 15:15
Intake & Output
04/23/25 04/24/25 04/25/25 04/26/25
23:59 23:59 23:59 23:59
Output Total 195 / 195
Balance -195 / -195
Physical Exam
Physical Exam
Physical exam:
Gen: intubated post op
HEENT: ET Tube in palce
Lungs: Clear anterior and lateral lung john
CV: RRR
Ext: No edema
--- NOTE | 2025-04-26 15:52 | CON.INTV ---
Consultation
Consultation Request
Date/Time Consultation Requested: 04/26/2025
Date/Time Consultation Performed: 04/26/2025
Medical History
-
Chief Complaint: Angina
History of Present Illness:
Patient is a 49-year-old gentleman with known history of type 1 diabetes and chronic coronary artery disease status post PCI in 2019 was admitted to the hospital in 03/2025 with worsening chest pain. Patient was felt to have angina. He
subsequently was evaluated by cardiology service and eventually had a coronary angiogram which was suggestive of multivessel coronary artery disease. Patient was subsequently discharged and evaluated by CT surgery service and was recommended to
have coronary artery bypass graft. Patient on 04/26 was admitted to the hospital for coronary artery bypass graft and postprocedure was admitted to CVICU. Chrome Polisher consultation was requested for further input.
Past Medical History
Past Medical History: Reports CAD, GERD, HTN, Hypercholesterolemia and IDDM (DM1 on insulin pump), gastroparesis
Past Surgical History: Reports Other
Additional Past Surgical History:
Cardiac stent
Jaw Surgery
Throat nodule removal
Right fifth metatarsal surgery
Social History
Tobacco: Non-smoker
Alcohol: None
Drug: None
Employment: Employed
Family History
Family History: Not pertinent
Allergies / Home Medications
Allergies
Allergy/AdvReac Type Severity Reaction Status Date / Time
pollen extracts Allergy seasonal Verified 04/22/25 08:33
allergies
Home Medications
�Medication �Instructions �Recorded �Confirmed �Last Taken �Type
cyanocobalamin (vitamin B-12) 1,000 mcg PO DAILY Supplement 12/29/21 04/26/25 2 Days Ago History
1,000 mcg tablet ~04/24/25
1000
ezetimibe 10 mg tablet 10 mg PO DAILY High cholesterol 12/29/21 04/26/25 2 Days Ago History
~04/24/25
10
alirocumab 75 mg/mL subcutaneous 75 mg SC Q14D High Cholesterol ##0 12/31/21 04/26/25 04/22/25 History
pen injector (Praluent Pen)
aspirin 81 mg chewable tablet 81 mg PO DAILY Blood Clot 03/10/25 04/26/25 2 Days Ago History
Prevention/Tx ~04/24/25
81
atorvastatin 80 mg tablet 80 mg PO QPM High Cholesterol 03/10/25 04/26/25 2 Days Ago History
~04/24/25
tirzepatide 10 mg/0.5 mL 10 mg SC TU Diabetes 03/10/25 04/26/25 04/13/25 08:00 History
subcutaneous pen injector
(Mounjaro)
nitroglycerin 0.4 mg sublingual 0.4 mg sublingual Q5-15M PRN chest 03/12/25 04/26/25 03/26/25 Rx
tablet pain #20 tabs
amlodipine 2.5 mg tablet 2.5 mg PO QPM Blood Pressure 04/20/25 04/26/25 2 Days Ago History
~04/24/25
2.5
coenzyme Q10 100 mg capsule 100 mg PO DAILY Supplement 04/20/25 04/26/25 2 Days Ago History
(CoQ-10) ~04/24/25
100
losartan 50 mg tablet 50 mg PO DAILY Blood Pressure 04/20/25 04/26/25 04/24/25 History
50
clopidogrel 75 mg tablet (Plavix) 75 mg PO DAILY Blood Clot 04/22/25 04/22/25 04/20/25 History
Prevention/Tx
insulin aspart (niacinamide) 0 unit SC Q1H Diabetes 04/22/25 04/26/25 04/26/25 History
(U-100) 100 unit/mL subcutaneous
solution (Fiasp U-100 Insulin)
insulin aspart (niacinamide) 1 sliding scale dose SC AC Diabetes 04/22/25 04/26/25 04/26/25 History
(U-100) 100 unit/mL subcutaneous
solution (Fiasp U-100 Insulin)
isosorbide mononitrate 30 mg 60 mg PO DAILY Heart 04/22/25 04/26/25 04/24/25 History
tablet,extended release 24 hr Disease/Condition 30
pantoprazole 20 mg tablet,delayed 20 mg PO QPM Gastrointestinal Issue 04/22/25 04/26/25 04/25/25 History
release 20
metoprolol succinate 50 mg 50 mg PO BID Heart 04/26/25 04/26/25 04/24/25 History
tablet,extended release 24 hr Disease/Condition
Review of Systems
-
Unable to Obtain full review of systems at this time due to: Other (Just extubated, still somewhat sedated)
Vitals / Labs / Diagnostic Testing
Vital Signs
Temp Pulse Resp BP Pulse Ox
96.8 F L 72 16 133/88 99
04/26/25 15:00 04/26/25 15:30 04/26/25 15:30 04/26/25 15:00 04/26/25 15:30
Lab Data
04/26/25 14:23
Laboratory Results
04/26/25
14:23
PT 16.7 H
INR 1.33
APTT 29.2
pH 7.39
pCO2 38
pO2 97
HCO3 23.0
O2 Delivery Level
Microbiology
04/23/25 08:37 Nose MRSA Screen - Final
No Methicillin Resistant Staphylococcus aureus isolated.
Diagnostic Testing:
Physical Exam
-
HEENT: Normocephalic
Cardiovascular: S1/S2
Respiratory: Clear
GI: Non Distended
Neurology: Other (Drowsy, wakes up with stimulation )
Skin: Warm
General: Comfortable
Assessment
-
49-year-old gentleman with known multivessel coronary artery disease s/p coronary artery bypass graft and left atrial appendage exclusion, POD # 0
Titrate off pressors per protocol, currently on Levophed @1, MAP 82.
ECHO reviewed with normal function
Management of chest tubes per primary service, no air leak noted
Just extubated, 100% on 6 ltr Nasal canula. Work of breathing normal.
AB.39/38/97
CXR with no obvious opacities/infiltrates, low lung volumes, ETT in good position, lines/tubes in place
Extubated per protocol
Maintain supplement oxygen as needed
No prior known history of pulmonary disease
Can add nebulizers if needed
Aspiration precautions
Encouraged incentive spirometry, OOB/ambulation/early mobility
Advance diet as tolerated following extubation
GI prophylaxis: Protonix
Monitor critical I/O's
Bull/chest tube output
Hb/platelets postoperatively, mild drift
Trend CBC for now
Can transfuse if indicated for Hb <7, plt <50 in surgical patients
DVT prophylaxis including SCDs
Insulin protocol initiated and ongoing
Transition to insulin pump as indicated per team
Other medical diagnoses:
- Gastroparesis
- Type 1 diabetes
- Hypertension, hyperlipidemia
- Chronic GERD
- Obesity, BMI 35.1. No prior known h/o JOSÉ MIGUEL
- History of coronary artery disease, status post PCI in 2019
Critical Care time 65 mins -- The patient is admitted for acute critical illness for the treatment of vital organ failure and/or prevention of further life-threatening conditions. Total care includes time spent in review of history, physical exam,
medications, hemodynamic/ventilator parameters, laboratory data, imaging and discussion with house staff, pharmacy, respiratory therapy, business taxes specialist, and nursing
Data:
NOLBERTO 04/2025: Overall LVEF is approximately 60% with no RWMA.
Mild concentric left ventricular hypertrophy.
All valves appear to be functioning normally.
Aorta is normal size with minimal atheroma.
LHC 04/2025: 1. Multivessel coronary artery disease with high-grade stenosis in the mid LAD just beyond a very proximally arising large diagonal branch which has a 95% ostial stenosis. The IFR in the LAD measured well below the ischemic threshold
at 0.83, 0.83, and 0.83. Angiographically significant coronary disease is noted in the distal RCA and mid PDA.
2. Preserved LV systolic function
CXR 04/26/2025: 1. No needle or other metallic foreign body identified.
2. Endotracheal tube, esophageal probe, right internal jugular central venous catheter, bilateral chest drains in position. No pneumothorax.
3. Hypoaerated lungs without consolidation.
Chest CT 04/2025: No significant or actionable incidental findings.
[2025-04-26 16:06] LABS: Glucose - Point of Care 175 mg/dl (70-99)
[2025-04-26 16:15] LABS: B.E. - POC -0.7 mmol/L; Blood Urea Nitrogen - POC 12 mg/dl (3-120); Chloride - POC 108 mmol/L (96-111); Creatinine - POC 0.79 mg/dl (0.3-1.0); Glucose - POC 168 mg/dl (70-99); HCO3 - POC 25 mmol/L (21-28); Hematocrit - POC 39 % PCV (42-52); Hemodilution- POC Yes; Hemoglobin Calculated - POC 13.2; Ionized Calcium - POC 1.23 mmol/L (1.15-1.33); Lactate - POC 1.37 mmol/L (0.36-0.75); O2 Saturation %Calculated-POC 98.8 % (94-98); PCO2 - POC 44 mmHg (35-48); PO2 - POC 131 mmHg (83-108); Potassium - POC 4.2 mmol/L (3.5-5.1); Sodium - POC 146 mmol/L (136-145); Specimen Type - POC Arterial; pH - POC 7.36 (7.35-7.45)
--- NOTE | 2025-04-26 16:21 | RESPNOTE ---
Respiratory: patient extubated at 1615 without incident, no stridor/wheeze.
[2025-04-26] MEDS: LOW STRENGTH ASPIRIN 81 MG PO (17:07)
[2025-04-26] MEDS: CALCIUM GLUCONATE 100 IV (17:08)
[2025-04-26 17:26] LABS: Glucose - Point of Care 148 mg/dl (70-99)
--- NOTE | 2025-04-26 17:30 | PTCARENOTE ---
PT extubated @ 1615; AAOx4 w/ complaints of pain; see worklist for detailed assessment
[2025-04-26 18:28] LABS: Glucose - Point of Care 97 mg/dl (70-99)
[2025-04-26 18:40] LABS: Hematocrit 36.3 % (39.0-52.0); Hemoglobin 12.3 g/dL (13.0-18.0); Platelet Count 197 10^3/uL (130-400)
--- NOTE | 2025-04-26 19:00 | PTCARENOTE ---
Assumed care of patient @ 1900. Recieved pt laying in bed
Neuro- Aox3. Groggy, but responds appropriately. Pupils equal, round and reactive, moves all extremities appropriately.
CV- NSR on tele, Heart tones audible, small rub auscultated. BP 100s/50s map ~ 70 on 1 of levo. CVP ~ 2. V wire to backup VVI 30,20.
Lungs -clear, diminished on 2L satting high 90s.
GI- hypoactive.
- Bull present draining clear yellow urine.
Skin- MSI covered with dressing, R leg with anne wrap, R groin OT
Lines- R IJ cordis with SLIC, R brachial A line, PIV all patent. central lines zeroed, flushed.
Meds- Recieved on levo at 1, insulin per protocol
Pt resting with call piper within reach .
[2025-04-26] MEDS: PACERONE PO (19:30)
[2025-04-26] MEDS: NEURONTIN PO (19:30)
[2025-04-26] MEDS: LIPITOR PO (19:31)
[2025-04-26] MEDS: ANCEF 5 IV (19:54)
[2025-04-26 19:59] LABS: Glucose - Point of Care 223 mg/dl (70-99)
[2025-04-26] MEDS: SENOKOT PO (20:07)
[2025-04-26] MEDS: CALCIUM GLUCONATE 130 MG IV (20:35)
[2025-04-26 21:07] LABS: Glucose - Point of Care 185 mg/dl (70-99)
[2025-04-26] MEDS: ROXICODONE 5 MG PO (21:09)
[2025-04-26] MEDS: PACERONE 200 MG PO (21:11)
[2025-04-26 22:07] LABS: Glucose - Point of Care 194 mg/dl (70-99)
[2025-04-26 23:05] LABS: Glucose - Point of Care 173 mg/dl (70-99)
[2025-04-26] MEDS: TYLENOL 975 MG PO (23:07)
[2025-04-26] MEDS: NEURONTIN 100 MG PO (23:07)
[2025-04-27] VITALS (29 sets, daily range): BP systolic 78–120; BP diastolic 55–74; BMI 36.7; BMI 35.5
--- NOTE | 2025-04-27 | PTCARENOTE ---
pt needing frequent pain meds, see mar for details. Otherwise resting with call piper within reach , no change in assessment .
--- NOTE | 2025-04-27 01:00 | PTCARENOTE ---
250 ml NSS bolus ordered and given, levo turned off
[2025-04-27] MEDS: NSS 250 IV ×2 (01:01→22:31)
[2025-04-27] MEDS: ROXICODONE 5 MG PO ×3 (01:23→18:42)
[2025-04-27 03:02] LABS: Glucose - Point of Care 91 mg/dl (70-99)
[2025-04-27 03:02] LABS: Glucose - Point of Care 115 mg/dl (70-99)
[2025-04-27] MEDS: NOVOLIN R INSULIN INFUSION 100 IV (03:14)
[2025-04-27] MEDS: DILAUDID 0.5 MG IV ×2 (03:17→18:43)
[2025-04-27] MEDS: ANCEF 5 IV ×2 (03:17→12:01)
[2025-04-27 03:21] LABS: Hematocrit 35.4 % (39.0-52.0); Hemoglobin 11.9 g/dL (13.0-18.0); Mean Corp Hgb Conc. 33.6 g/dL (33.0-37.0); Mean Corpuscular Volume 92.4 fL (80.0-94.0); Platelet Count 211 10^3/uL (130-400); Red Cell Dist. Width 12.8 % (11.5-14.5)
[2025-04-27 03:36] LABS: Blood Urea Nitrogen 14 mg/dl (9-20); Calcium 8.3 mg/dl (8.4-10.2); Carbon Dioxide 26 mmol/L (22-30); Chloride 111 mmol/L (98-107); Estimated Creatinine Clearance > 125 ml/min; Glucose 99 mg/dl (70-99); Magnesium 1.8 mg/dl (1.6-2.3); Potassium 4.3 mmol/L (3.5-5.1); Sodium 140 mmol/L (135-145); eGFR > 60.00
--- NOTE | 2025-04-27 03:36 | W.PN.CT ---
Today's Communication / Plan
-
Plan:
-No major issues overnight. Hemodynamically and neurologically intact
-Successfully extubated on 04/26/25 @ 1615
-Weaned off Levophed overnight. Remains on insulin gtt per protocol
-MVO2 off Cordis/SLIC 74%, U/O since OR 790 mL
-Monitor chest tube output: 2meds (superior and inferior with superior tip in right pleural) 80/120, Left Pleural 65/130
-Holding AM dose BB d/t postop hypotension requiring Levophed
-Cont. current meds (ASA, Plavix, Zetia, Lipitor, Insulin gtt, Amiodarone; holding AM dose Lopressor d/t low BP)
-D/C'd SLIC and A-line @ 0430
-Will D/C youngblood catheter later today, has Caude catheter given difficult placement
-Will renew insulin gtt per protocol and consult diabetes education/management, hgb A1C 7.7, pt with Type 1 diabetes on insulin pump
-Maintain cordis
-Maintain temporary V-wire
-Encourage use of IS
-Wean off O2 as tolerated
-OOB into chair/Ambulate
Assessment / Plan
-
Assessment:
-S/P Median sternotomy/ CABG x 3 (YANET to LAD, GSV to D1, GSV to mid-RPDA)/Endoscopic harvest/prep of RLE GSV/Open-endoscopic exploration of L RA -not utilized d/t significant calcifications/ ELAA (35mm AtriClip), by Dr. Humphries, 04/26/25, pod#1
-Multivessel CAD
-[place]
-LVEF 60%, per intraop NOLBERTO
-Hx of CAD S/P PCI with stent to apical LAD and proximal RI, 11/30/2018
-HTN
-T1DM (A1C 7.7, on insulin pump)
-Gastroparesis
-HLD
-Class 1 obesity (BMI 35.1)
-GERD
-S/P Jaw surgery
-S/P throat nodule removal
-S/P Right 5th metatarsal surgery
-Acute postop blood loss/Anemia (stable without blood transfusion)
-Acute postop atelectasis
-Acute postop hypovolemia with subsequent hypervolemia
-Suspected acute postop pericarditis on EKG, + rub
Discussed patient care with: Cardiology, Nursing, Respiratory Therapy, Pharmacy and Care Team
Subjective
Procedure
S/P Median sternotomy/ CABG x 3 (YANET to LAD, GSV to D1, GSV to mid-RPDA)/Endoscopic harvest/prep of RLE GSV/Open-endoscopic exploration of L RA -not utilized d/t significant calcifications/ ELAA (35mm AtriClip), by Dr. Humphries, 04/26/25, pod#1
-
Date of Service: April 27, 2025
Pt c/o incisional pain, otherwise feels well
Objective Data
-
Lab Results
04/27/25 02:57
PT 16.7 Sec (11.4-14.6) H 04/26/25 14:23
INR 1.33 04/26/25 14:23
APTT 29.2 Sec (23.4-35.0) 04/26/25 14:23
Vital Signs
Vital Signs
Temp Pulse Resp BP Pulse Ox
99.1 F 90 24 109/66 97
04/27/25 03:00 04/27/25 03:15 04/27/25 03:15 04/27/25 03:00 04/27/25 03:15
CT Intake/Output/Weight
04/26/25 04/26/25 04/27/25
06:59 18:59 06:59
Intake Total 799.1 / 1260.2 461.1 / 1260.2
Output Total 505 / 915 410 / 915
Balance 294.1 / 345.2 51.1 / 345.2
SaO2: 97 (2L)
Physical Exam
-
General: Awake, Oriented and AOx3
Cardiovascular: Regular rate & rhythm, No Murmurs, Rub (mild rub) and No Gallop
Respiratory: Decreased Breath Sounds (at bases, otherwise clear)
Sternum: Stable
Incision: Clean, Dry, Intact and Dressing Intact
Extremities: Other (+trace edema)
Data Reviewed
-
Lab Results: Results Reviewed
Medications: Active Meds Reviewed
Chest X-Ray: Report Reviewed and Image Reviewed
ECG: Report Reviewed and Image Reviewed
[2025-04-27] MEDS: CALCIUM GLUCONATE 130 MG IV (04:27)
[2025-04-27] MEDS: TORADOL 15 MG IV ×3 (04:27→17:09)
[2025-04-27 04:49] LABS: Glucose - Point of Care 171 mg/dl (70-99)
[2025-04-27] MEDS: CORDARONE 103 MG IV (05:44)
--- NOTE | 2025-04-27 05:53 | PTCARENOTE ---
labs drawn and sent, EKG preformed which showed STEMI alert. results communicated to [facility] ED who said likely pericarditis- toradol ordered. SLIC removed per order, brachial A line removed by [facility]. PT tachycardic to the 110s- amio bolus ordered and
given. [facility] advised not to get patient up this morning and to let rest longer, will pass off to dayshift.
[2025-04-27 07:01] LABS: Glucose - Point of Care 189 mg/dl (70-99)
--- NOTE | 2025-04-27 07:50 | W.PN.ANS.POP ---
Anesthesia Post Operative
- Anesthesia Post Op Note
Vital Signs Stable-See Nursing Note: Yes
Airway Patent: Yes
Adequate Pain Control: Yes
Change in Mental Status: No
Current Postoperative Nausea & Vomiting: No
Anesthesia Complications: No
General Anesthetic Recall: No
Unplanned Admission: No
Post Op Hydration Adequate: Yes
- -
Selected Entries
04/27/25
06:00 04/27/25
06:00 04/27/25
06:00
Temp 98.5 F
Pulse 82
Rhythm: Normal sinus
rhythm
Resp Rate 11
Blood pressure 99/64
SaO2 96
--- NOTE | 2025-04-27 08:32 | W.PN.CARDCBS ---
Addendum entered and electronically signed by Lamin Frost MD 04/27/25 09:55:
I saw and examined the patient.
The Health Care Sanitary Technician's note was reviewed and I agree with the note.
Comment: Briefly, 49-year-old man with known multivessel CAD and multiple hospitalizations over the last few months for chest discomfort who presented for elective CABG x 3 on 04/26/2025
He is doing well postoperatively. Extubated to supplemental O2 via nasal cannula. Pressors weaned off.
Continues to report discomfort at the sternotomy site as well as pleuritic type chest discomfort.
ECG is concerning for pericarditis which may be contributing to his discomfort�would consider starting colchicine
Appears euvolemic on exam
Follow daily weights
May need eventual diuresis
Currently maintaining sinus rhythm on review of telemetry
Continue amiodarone
Agree with current medical management of CAD�aspirin/Plavix/high intensity statin/Zetia
Metoprolol is on hold for hypotension
May need to also hold amlodipine depending on blood pressure trend
Original Note:
Today's Communication / Plan
-
continue post op care
in SR, with pericarditis by EKG
Impression / Plan
-
Primary medical office assistant instructor: Dr. Brian Robertson
Primary CARE physician: Dr. Carole Deleon
IMPRESSION:
- Coronary artery disease involving proximal-mid LAD, large diagonal branch, and PDA
Coronary artery bypass surgery with HART-LAD, SVG-D1, SVG-mid RPDA 04/26/25
-Old myocardial infarction
- Diabetes mellitus: Poorly controlled
- Essential hypertension
- Mixed hyperlipidemia
-GERD
RECOMMENDATIONS:
-s/p HART-LAD, SVG-D1, SVG-mid RPDA 04/26/25
-extubated
-off pressors. remains on insulin drip, wean as able
-EKG with evidence of pericarditis
-in SR on review of tele. continue po amio-received bolus of IV Amio as well as increase in p.o. Amio from 200 3 times daily to 400 3 times daily for sinus tach, would attempt to decrease back to 200mg TID if remains without significant ectopy. NO
afib noted. holding AM lopressor due to hypotension
-continue post op care
-d/w CT surgery SUPPLY CHAIN TECH/PA
Progress Note - Staffing Operations Manager
Subjective
Date of Service: April 27, 2025
states is very sore, tired
Objective
Labs:
04/27/25 02:57
04/27/25 02:57
Labs
Hgb 11.9 g/dL (13.0-18.0) L 04/27/25 02:57
Hct 35.4 % (39.0-52.0) L 04/27/25 02:57
Plt Count 211 10^3/uL (130-400) 04/27/25 02:57
PT 16.7 Sec (11.4-14.6) H 04/26/25 14:23
INR 1.33 04/26/25 14:23
APTT 29.2 Sec (23.4-35.0) 04/26/25 14:23
Sodium 140 mmol/L (135-145) 04/27/25 02:57
Potassium 4.3 mmol/L (3.5-5.1) 04/27/25 02:57
BUN 14 mg/dl (9-20) 04/27/25 02:57
Creatinine 0.7 mg/dL (0.7-1.3) 04/27/25 02:57
Glucose 99 mg/dl (70-99) 04/27/25 02:57
Vital Signs and I&O:
Vital Signs
Temp Pulse Resp BP Pulse Ox
98.5 F 82 11 99/64 96
04/27/25 06:00 04/27/25 06:00 04/27/25 06:00 04/27/25 06:00 04/27/25 06:00
Vital Signs
Temp Pulse Resp BP Pulse Ox
98.5 F 82 11 99/64 96
04/27/25 06:00 04/27/25 06:00 04/27/25 06:00 04/27/25 06:00 04/27/25 06:00
Intake & Output
04/25/25 04/26/25 04/27/25 04/28/25
07:59 07:59 07:59 07:59
Intake Total 1334.9 / 1334.9
Output Total 1033 / 1033
Balance 301.9 / 301.9
Physical Exam
Physical Exam
GEN: No distress, awake, alert, oriented x3. on supp O2
HEENT: supple, anicteric, mmm, eomi
LUNGS: Decreased BS B/L, no wheezes
CV: Reg, S1/S2, no murmur
ABD: soft, BS+, NT/ND
EXT: No cyanosis, clubbing, edema
NEURO: Gross non-focal
SKIN: Warm, pink, dry. No rash. Sternotomy dressing c/d/i. CTs in place
[2025-04-27] MEDS: PACERONE 400 MG PO ×3 (09:00→20:02)
[2025-04-27] MEDS: LOW STRENGTH ASPIRIN 81 MG PO (09:00)
[2025-04-27] MEDS: TYLENOL PO (09:00)
[2025-04-27] MEDS: ZETIA 10 MG PO (09:00)
[2025-04-27] MEDS: PROTONIX 40 MG PO (09:00)
[2025-04-27] MEDS: MAGNESIUM OXIDE 400 MG PO ×2 (09:00→20:01)
[2025-04-27] MEDS: NEURONTIN 100 MG PO ×3 (09:00→20:01)
[2025-04-27] MEDS: VITAMIN B-12 1000 MCG PO (09:01)
[2025-04-27] MEDS: LIDOCAINE 4% PATCH 1 PATCH TOPICAL (09:01)
[2025-04-27] MEDS: PLAVIX 75 MG PO (09:01)
[2025-04-27] MEDS: SENOKOT 8.6 MG PO ×2 (09:01→20:01)
[2025-04-27] MEDS: BACTROBAN 2% OINTMENT 1 APPLIC NASAL ×2 (09:02→20:02)
[2025-04-27 09:06] LABS: Glucose - Point of Care 92 mg/dl (70-99)
[2025-04-27] MEDS: NOVOLOG FLEXPEN SC ×2 (09:09→18:11)
--- NOTE | 2025-04-27 09:15 | PTCARENOTE ---
assumed care of pt from previous shift RN, sinus rhythm on tele w ST elevations, bp 102/59, + peripheral pulses, trace edema to bilateral lower extremities. Lungs diminished, pox 97% on 2L NC. +bs, tolerating PO intake, youngblood catheter draining
yellow. CT x3 w red drainage. Youngblood draining yellow. Surgical sites stable, CT dressing changed, youngblood and mouth care preformed. Plan of care reviewed and questions encouraged.
DRIPS:
Insulin titrated per glycemic protocol
--- NOTE | 2025-04-27 10:51 | CM ---
Pricing on Farxiga and Jardiance through the patient's prescription plan is $40 for a 30 day supply for both medications.
I placed a free 30 day and $0 copay card for Farxiga in the patient's red discharge folder.
--- NOTE | 2025-04-27 11:02 | CM ---
Chart reviewed. Patient OOB sitting in the chair, and mother at bedside. Patient is independent of ADLS, lives with his in a 2 STH, 2 DEDRA, 0 DME. Plan is for the patient to return home with CT Transitional RN.
[2025-04-27 11:05] LABS: Glucose - Point of Care 119 mg/dl (70-99)
--- NOTE | 2025-04-27 11:23 | PTCARENOTE ---
pt assisted OOB to chair w assist of 2 RNs. Brief self limiting orthostasis. Pt was medicated for pain. Family at bedside and updated.
--- NOTE | 2025-04-27 11:34 | PTCARENOTE ---
pt assisted w repositioning in chair.
--- NOTE | 2025-04-27 11:54 | PN.DE.MGMTRT ---
Insulin Management
- -
04/27/2025 Diabetes Management Consult
Patient admitted 04/26 for CABG. PMH MVCAD, diabetes, [place], HLD, HTN, asthma, neuropathy, JOSÉ MIGUEL. Prior to admission was using OmniPod with fiasp insulin and Mounjaro 10 mg every Saturday. A1C on admission 7.7%. Cr .7, eGFR > 60 today.
POD 1 s/p CABG x 3. Patient is awake alert and oriented out of bed in chair. States he was diagnosed with diabetes @ age 19, sees Giovani Castro at [facility] for ongoing diabetes care.
Patient currently receiving Critical Care glycemic protocol insulin infusion .7 to 7 units of insulin per hour, glucose 97 to 194. Will continue insulin infusion today and overnight and assess for readiness to resume OmniPod insulin pump tomorrow,
will obtain pump settings at that time. Patient states he has supplies to resume POD.
Discussed with patient benefits of starting Farxiga, he is agreeable.
Discussed with nurse.
Will follow
Diabetes History
- -
Type of Diabetes: 2 requiring insulin
Pre-Admission Diabetes Regimen
04/26/25 04/27/25
14:23 02:57
Creatinine 0.7 0.7
Lab Results
Hemoglobin A1c Cancelled 04/23/25 08:37
Insulin Pump Settings
IP Diabetes Regimen
04/26/25 04/26/25 04/26/25
14:23 14:24 15:34
Glucose 118 H
POC Glucose 112 H 173 H
04/26/25 04/26/25 04/26/25
16:05 17:24 18:26
Glucose
POC Glucose 175 H 148 H 97
04/26/25 04/26/25 04/26/25
19:58 21:01 22:02
Glucose
POC Glucose 223 H 185 H 194 H
04/26/25 04/27/25 04/27/25
23:03 00:59 02:57
Glucose 99
POC Glucose 173 H 115 H
04/27/25 04/27/25 04/27/25
02:59 04:47 06:58
Glucose
POC Glucose 91 171 H 189 H
04/27/25 04/27/25
09:05 11:03
Glucose
POC Glucose 92 119 H
Meal type: Breakfast
Meal type: Lunch
Patient Education
[2025-04-27] MEDS: COLCHICINE 0.3 MG PO (12:22)
[2025-04-27] MEDS: NSS IV (12:44)
--- NOTE | 2025-04-27 12:54 | W.PN.INTV ---
Today's Communication / Plan
Recommendations
- Wean insulin infusion per protocol, transition to s.c Pump
Assessment
-
49-year-old gentleman with known multivessel coronary artery disease s/p coronary artery bypass graft and left atrial appendage exclusion, POD # 1
Titrated off pressors per protocol, MAP 73, not requiring any pressors
ECHO reviewed with normal function
Management of chest tubes per primary service, no air leak noted
Just extubated, 97% on 2 ltr Nasal canula. Work of breathing normal.
CXR with b/l lower lobe atelectasis.
Extubated per protocol
Maintain supplement oxygen as needed
No prior known history of pulmonary disease
Can add nebulizers if needed
Aspiration precautions
Encouraged incentive spirometry, OOB/ambulation/early mobility
Advance diet as tolerated following extubation
GI prophylaxis: Protonix
Monitor critical I/O's
Bull/chest tube output
Hb/platelets postoperatively, mild drift
Trend CBC for now
Can transfuse if indicated for Hb <7, plt <50 in surgical patients
DVT prophylaxis including SCDs
Insulin protocol initiated and ongoing
Transition to insulin pump as indicated per team
Other medical diagnoses:
- Gastroparesis
- Type 1 diabetes
- Hypertension, hyperlipidemia
- Chronic GERD
- Obesity, BMI 35.1. No prior known h/o JOSÉ MIGUEL
- History of coronary artery disease, status post PCI in 2019
Critical Care time 35 mins -- The patient is admitted for acute critical illness for the treatment of vital organ failure and/or prevention of further life-threatening conditions. Total care includes time spent in review of history, physical exam,
medications, hemodynamic/ventilator parameters, laboratory data, imaging and discussion with house staff, pharmacy, respiratory therapy, news broadcaster, and nursing
Data:
NOLBERTO 04/2025: Overall LVEF is approximately 60% with no RWMA.
Mild concentric left ventricular hypertrophy.
All valves appear to be functioning normally.
Aorta is normal size with minimal atheroma.
LHC 04/2025: 1. Multivessel coronary artery disease with high-grade stenosis in the mid LAD just beyond a very proximally arising large diagonal branch which has a 95% ostial stenosis. The IFR in the LAD measured well below the ischemic threshold
at 0.83, 0.83, and 0.83. Angiographically significant coronary disease is noted in the distal RCA and mid PDA.
2. Preserved LV systolic function
CXR 04/26/2025: 1. No needle or other metallic foreign body identified.
2. Endotracheal tube, esophageal probe, right internal jugular central venous catheter, bilateral chest drains in position. No pneumothorax.
3. Hypoaerated lungs without consolidation.
Chest CT 04/2025: No significant or actionable incidental findings.
Subjective Dataa
Subjective Data
Date of Service:
Date of Service: April 27, 2025
Subjective:
Comfortably sitting in bed, no acute distress
Review of Systems
Genitourinary: Other (No new symptoms reported. )
Objective Data
Data Reviewed
Vital Signs / I&O / Oxygen:
Vital Signs
Temp Pulse Resp BP Pulse Ox
97.7 F 94 21 90/55 99
04/27/25 12:00 04/27/25 12:45 04/27/25 12:30 04/27/25 12:01 04/27/25 12:01
Intake and Output
04/26/25 04/27/25 04/28/25
06:59 06:59 06:59
Intake Total 1334.9 / 1334.9 271.7 / 271.7
Output Total 1033 / 1033 220 / 220
Balance 301.9 / 301.9 51.7 / 51.7
SaO2 99
Nasal Cannula flow liters per 2
minute
Physical Exam
General: Comfortable
HEENT: Normocephalic
Cardiovascular: S1-S2
Respiratory: Clear and Non-Labored Respirations
GI: Soft and Non Distended
Neurology: Awake and Alert
Skin: Warm
Labs/Micro/Reports
Lab Data
04/27/25 02:57
04/27/25 02:57
Laboratory Results
04/26/25
14:23
PT 16.7 H
INR 1.33
APTT 29.2
pH 7.39
pCO2 38
pO2 97
HCO3 23.0
O2 Delivery Level
Microbiology
04/23/25 08:37 Nose MRSA Screen - Final
No Methicillin Resistant Staphylococcus aureus isolated.
[2025-04-27 12:55] LABS: Glucose - Point of Care 139 mg/dl (70-99)
[2025-04-27] MEDS: NOVOLOG FLEXPEN 4 UNITS SC (12:59)
[2025-04-27] MEDS: LR 250 IV (13:02)
[2025-04-27] MEDS: FLEXERIL 5 MG PO (13:47)
[2025-04-27] MEDS: TYLENOL 975 MG PO ×2 (13:47→20:00)
--- NOTE | 2025-04-27 15:05 | PTCARENOTE ---
LR bolus administered as ordered, pt returned to bed and medicated for pain.
[2025-04-27 15:56] LABS: Glucose - Point of Care 134 mg/dl (70-99)
[2025-04-27] MEDS: LIPITOR 80 MG PO (17:09)
[2025-04-27 18:10] LABS: Glucose - Point of Care 104 mg/dl (70-99)
--- NOTE | 2025-04-27 19:00 | PTCARENOTE ---
Assumed care of patient @ 1900. Recieved pt sitting in chair
Neuro- Aox3. Groggy, but responds appropriately. Pupils equal, round and reactive, moves all extremities appropriately.
CV- NSR on tele, Heart tones audible, V wire insulated. Good pulses, no edema noted.
Lungs -clear, diminished on ra satting high mid 90s. poor respiratory effort noted, IS use encouraged.
GI- hypoactive, tolearted diet but reportedly had poor appetite today.
- Bull present draining clear joelle urine.
Skin- MSI covered with dressing, R leg with anne wrap, R groin OT. 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
Lines- R IJ cordis, PIV all patent.
Meds- Recieved on insulin per protocol.
Pt resting with call piper within reach .
[2025-04-27 19:56] LABS: Glucose - Point of Care 143 mg/dl (70-99)
[2025-04-27] MEDS: REMOVE LIDOCAINE PATCH 1 PATCH REMOVE (20:02)
[2025-04-27 22:05] LABS: Glucose - Point of Care 111 mg/dl (70-99)
[2025-04-27 23:58] LABS: Glucose - Point of Care 86 mg/dl (70-99)
[2025-04-28] VITALS (20 sets, daily range): BP systolic 100–134; BP diastolic 53–90; PULSE 100; O2SAT 90–92; BMI 35.6
[2025-04-28] MEDS: TORADOL 15 MG IV
--- NOTE | 2025-04-28 | PTCARENOTE ---
UO trending down, CTPA notified. 250 ML fluid bolus given with slight uptick in urine. otherwise patient resting comfortably, no change in assessment .
[2025-04-28] MEDS: TOPROL XL PO ×2 (00:06→08:27)
[2025-04-28] MEDS: ROXICODONE 5 MG PO ×3 (01:58→11:49)
[2025-04-28 02:07] LABS: Glucose - Point of Care 174 mg/dl (70-99)
[2025-04-28 02:20] LABS: Hematocrit 30.2 % (39.0-52.0); Hemoglobin 10.3 g/dL (13.0-18.0); Mean Corp Hgb Conc. 34.1 g/dL (33.0-37.0); Mean Corpuscular Volume 94.4 fL (80.0-94.0); Platelet Count 173 10^3/uL (130-400); Red Cell Dist. Width 13.2 % (11.5-14.5)
[2025-04-28 02:42] LABS: Blood Urea Nitrogen 25 mg/dl (9-20); Calcium 8.2 mg/dl (8.4-10.2); Carbon Dioxide 24 mmol/L (22-30); Chloride 108 mmol/L (98-107); Estimated Creatinine Clearance 67 ml/min; Glucose 169 mg/dl (70-99); Magnesium 1.8 mg/dl (1.6-2.3); Potassium 4.4 mmol/L (3.5-5.1); Sodium 137 mmol/L (135-145); eGFR 48.21
--- NOTE | 2025-04-28 04:00 | PTCARENOTE ---
labs drawn and sent, pt continued with low UO overnight, CTPA aware.
[2025-04-28 04:19] LABS: Glucose - Point of Care 127 mg/dl (70-99)
--- NOTE | 2025-04-28 04:44 | W.PN.CT ---
Today's Communication / Plan
-
Plan:
-No major issues overnight. Hemodynamically and neurologically intact
-Off all drips but insulin gtt per protocol. Will transition off today. Diabetes education/management following
-BP has been soft postop, and noted to be tachycardic with activity
-BP is improving, Toprol XL started, Will place Midodrine on PRN
-Received 4 doses of Toradol and is on Colchicine for postop acute pericarditis
-Bull d/c'd this AM, Cr 1.7 up, from 0.7 yesterday
-24hr U/o 450 mL, oliguric. Received 250 mL NS bolus last night. Lactic Acid 1.0 today. Will likely benefit from Lasix today despite cr 1.7
-Consider D/C of chest tube to increase mobility: 2meds (superior and inferior with superior tip in right pleural) 50/180, Left Pleural 50/180
-F/U AM cxr
-Cont. current meds (ASA, Plavix, Zetia, Lipitor, Insulin gtt, Amiodarone, Toprol XL)
-Maintain cordis another day for phlebotomy, medication administration
-Maintain temporary V-wire (maisha cut before d/c home)
-Encourage use of IS
-Wean off O2 as tolerated
-OOB into chair/Ambulate
Assessment / Plan
-
Assessment:
-S/P Median sternotomy/ CABG x 3 (YANET to LAD, GSV to D1, GSV to mid-RPDA)/Endoscopic harvest/prep of RLE GSV/Open-endoscopic exploration of L RA -not utilized d/t significant calcifications/ ELAA (35mm AtriClip), by Dr. Humphries, 04/26/25, pod#2
-Multivessel CAD
-[place]
-LVEF 60%, per intraop NOLBERTO
-Hx of CAD S/P PCI with stent to apical LAD and proximal RI, 11/30/2018
-HTN
-T1DM (A1C 7.7, on insulin pump)
-Gastroparesis
-HLD
-Class 1 obesity (BMI 35.1)
-GERD
-S/P Jaw surgery
-S/P throat nodule removal
-S/P Right 5th metatarsal surgery
-Acute postop blood loss/Anemia (stable without blood transfusion)
-Acute postop atelectasis
-Acute postop hypovolemia with subsequent hypervolemia
-Suspected acute postop pericarditis on EKG, + rub
-Acute postop DAMON
-Acute postop tachycardia
Discussed patient care with: Cardiology, Nursing, Respiratory Therapy, Pharmacy and Care Team
Subjective
Procedure
S/P Median sternotomy/ CABG x 3 (YANET to LAD, GSV to D1, GSV to mid-RPDA)/Endoscopic harvest/prep of RLE GSV/Open-endoscopic exploration of L RA -not utilized d/t significant calcifications/ ELAA (35mm AtriClip), by Dr. Humphries, 04/26/25, pod#1
-
Date of Service: April 28, 2025
Pt c/o mild incisional pain, otherwise feels well
Objective Data
-
Lab Results
04/28/25 02:12
04/28/25 02:12
PT 16.7 Sec (11.4-14.6) H 04/26/25 14:23
INR 1.33 04/26/25 14:23
APTT 29.2 Sec (23.4-35.0) 04/26/25 14:23
Vital Signs
Vital Signs
Temp Pulse Resp BP Pulse Ox
98.9 F 95 13 110/59 94
04/27/25 23:00 04/28/25 03:45 04/28/25 03:45 04/28/25 03:00 04/28/25 03:[address]
CT Intake/Output/Weight
04/27/25 04/27/2504/28/25
06:59 18:59 06:59
Intake Total 535.8 / 1334.9 356.7 / 958.5 601.8 / 958.5
Output Total 528 / 1033 570 / 750 180 / 750
Balance 7.8 / 301.9 -213.3 / 208.5 421.8 / 208.5
SaO2: 94 (2L)
Physical Exam
-
General: Awake, Oriented and AOx3
Cardiovascular: Regular rate & rhythm, No Murmurs, Rub (mild rub) and No Gallop
Respiratory: Decreased Breath Sounds (at bases, otherwise clear)
Sternum: Stable
Incision: Clean, Dry, Intact and Dressing Intact
Extremities: Other (+trace edema)
Data Reviewed
-
Lab Results: Results Reviewed
Chest X-Ray: Report Reviewed and Image Reviewed
ECG: Report Reviewed and Image Reviewed
[2025-04-28] MEDS: NOVOLIN R INSULIN INFUSION 100 IV (04:52)
[2025-04-28] MEDS: CALCIUM GLUCONATE 130 MG IV (04:57)
[2025-04-28 06:14] LABS: Glucose - Point of Care 132 mg/dl (70-99)
[2025-04-28] MEDS: TYLENOL 975 MG PO ×3 (06:27→20:19)
[2025-04-28 07:55] LABS: Glucose - Point of Care 115 mg/dl (70-99)
--- NOTE | 2025-04-28 08:00 | PTCARENOTE ---
Assumed care of patient from manager night RN. AAO x 3, Flat affect but appropriate. SR/ST on monitor. Epicardial wire insulated. Chest tubes x 3 to -20 cm suction. No air leak or crepitus noted. RA 91-92%. Is to 500. Poor inspiratory effort .
Abdomen with positive bowel sounds noted t/o appetite good. Due to void. Trace anasarca appreciated. Sternal dressing c,d,i. Rt leg incision well approximated. Pulses palpable. Plan for day discussed.
[2025-04-28] MEDS: LIDOCAINE 4% PATCH 1 PATCH TOPICAL (08:25)
[2025-04-28] MEDS: MAGNESIUM OXIDE 400 MG PO ×2 (08:26→20:22)
[2025-04-28] MEDS: SENOKOT 8.6 MG PO ×2 (08:26→20:21)
[2025-04-28] MEDS: ZETIA 10 MG PO (08:26)
[2025-04-28] MEDS: NEURONTIN 100 MG PO ×3 (08:26→20:21)
[2025-04-28] MEDS: PACERONE 400 MG PO ×3 (08:26→20:21)
[2025-04-28] MEDS: LOW STRENGTH ASPIRIN 81 MG PO (08:26)
[2025-04-28] MEDS: PLAVIX 75 MG PO (08:26)
[2025-04-28] MEDS: COLCHICINE 0.3 MG PO (08:26)
[2025-04-28] MEDS: PROTONIX 40 MG PO (08:26)
[2025-04-28] MEDS: NOVOLOG FLEXPEN 4 UNITS SC (08:27)
[2025-04-28] MEDS: VITAMIN B-12 1000 MCG PO (08:27)
[2025-04-28] MEDS: BACTROBAN 2% OINTMENT 1 APPLIC NASAL ×2 (08:27→20:22)
[2025-04-28] MEDS: LASIX 20 MG IV (08:33)
--- NOTE | 2025-04-28 09:50 | PTCARENOTE ---
Chest tubes removed by RN x 2. Pt tolerated w/o issue. Resting in bed after.
[2025-04-28 10:20] LABS: Glucose - Point of Care 97 mg/dl (70-99)
--- NOTE | 2025-04-28 11:09 | CM ---
Chart reviewed. Patient OOB sitting in the chair. Patient is independent of ADLS, lives with his in a 2 STH, 2 DEDRA, 0 DME. Plan is for the patient to return home with CT Transitional RN. CM to follow
--- NOTE | 2025-04-28 11:45 | W.PN.CARDCBS ---
Addendum entered and electronically signed by Dereck Lopez MD 04/28/25 12:24:
I saw and examined the patient.
The Vineyard Supervisor's note was reviewed and I agree with the note.
Comment:
GEN: No distress, awake, Ox3
HEENT: supple, anicteric, mmm
LUNGS: CTA, no wheezes/rales
CV: Reg, S1/S2, no rub
ABD: soft, BS+, NT/ND
EXT: No edema
NEURO: Gross non-focal
SKIN: sternotomy
PLan:
Creatinine up to 1.7. Continue to follow. Gentle hydration.
ECG does have signs of pericarditis with diffuse ST elevation. Continue colchicine.
Continue amiodarone and low-dose metoprolol.
Remains on midodrine for supportive care.
Original Note:
Today's Communication / Plan
-
follow Cr
continue colchicine
wean midodrine
post op care
Impression / Plan
-
Primary vamp seamer: Dr. Brian Robertson
Primary CARE physician: Dr. Carole Deleon
IMPRESSION:
- Coronary artery disease involving proximal-mid LAD, large diagonal branch, and PDA
Coronary artery bypass surgery with HART-LAD, SVG-D1, SVG-mid RPDA 04/26/25
-Old myocardial infarction
- Diabetes mellitus: Poorly controlled
- Essential hypertension
- Mixed hyperlipidemia
-GERD
RECOMMENDATIONS:
- s/p HART-LAD, SVG-D1, SVG-mid RPDA 04/26/25
- Creatinine bumped to 1.7. Received 250 cc IV fluid last evening. Follow volume status
- EKG 04/27 with evidence of pericarditis. Continue low-dose colchicine
- In sinus rhythm/sinus tach on review of telemetry. Amiodarone dose was increased to 400 mg [address] surgery 04/27. No A-fib noted
- On midodrine 5 mg 3 times daily, wean as able. Toprol on hold with relative hypotension
- continue post op care, OOB/IS
- d/w nursing. d/w family at bedside
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
Subjective
Date of Service: April 28, 2025
Reports feeling tired. Reports breathing improving
Objective
Labs:
04/28/25 02:12
04/28/25 02:12
Labs
Hgb 10.3 g/dL (13.0-18.0) L 04/28/25 02:12
Hct 30.2 % (39.0-52.0) L 04/28/25 02:12
Plt Count 173 10^3/uL (130-400) 04/28/25 02:12
PT 16.7 Sec (11.4-14.6) H 04/26/25 14:23
INR 1.33 04/26/25 14:23
APTT 29.2 Sec (23.4-35.0) 04/26/25 14:23
Sodium 137 mmol/L (135-145) 04/28/25 02:12
Potassium 4.4 mmol/L (3.5-5.1) 04/28/25 02:12
BUN 25 mg/dl (9-20) H 04/28/25 02:12
Creatinine 1.7 mg/dL (0.7-1.3) H 04/28/25 02:12
Glucose 169 mg/dl (70-99) H 04/28/25 02:12
Vital Signs and I&O:
Vital Signs
Temp Pulse Resp BP Pulse Ox
98.7 F 92 28 109/88 92
04/28/25 08:43 04/28/25 09:15 04/28/25 09:15 04/28/25 09:00 04/28/25 10:43
Vital Signs
Temp Pulse Resp BP Pulse Ox
98.7 F 92 28 109/88 92
04/28/25 08:43 04/28/25 09:15 04/28/25 09:15 04/28/25 09:00 04/28/25 10:43
Intake & Output
04/26/25 04/27/25 04/28/25 04/29/25
07:59 07:59 07:59 07:59
Intake Total 1334.9 / 1351.9 1000.5 / 1000.5 374 / 374
Output Total 1033 / 1093 785 / 785 0 / 0
Balance 301.9 / 258.9 215.5 / 215.5 374 / 374
Physical Exam
Physical Exam
GEN: No distress, awake, alert, oriented x3. sitting in chair
HEENT: supple, anicteric, mmm, eomi
LUNGS: Decreased BS B/L, no wheezes
CV: Reg, S1/S2, no murmur
ABD: soft, BS+, NT/ND
EXT: No cyanosis, clubbing. trace edema of B/L LE
NEURO: Gross non-focal
SKIN: Warm, pink, dry. No rash. Sternotomy dressing c/d/i.
--- NOTE | 2025-04-28 11:48 | PN.DE.MGMTRT ---
Insulin Management
- -
04/28/2025 Diabetes Management Consult Follow up
Patient admitted 04/26 for CABG. PMH MVCAD, diabetes, [place], HLD, HTN, asthma, neuropathy, JOSÉ MIGUEL. Prior to admission was using OmniPod with fiasp insulin and Mounjaro 10 mg every Saturday. A1C on admission 7.7%. Cr .7, eGFR > 60 today.
POD 2 s/p CABG x 3. Patient is awake alert and oriented out of bed in chair. States he was diagnosed with diabetes @ age 19, sees Giovani Castro at [facility] for ongoing diabetes care.
Patient currently receiving Critical Care glycemic protocol insulin infusion .7 to 7 units of insulin per hour, glucose 92 to 119. DexCom G6 started at 9:52, 2 hour warm up. Returned at 11:45 to resume OmniPod insulin pump, patient prepared and
applied pod. Will stop insulin infusion at 1:15pm. Pump settings as follows:
Basal
12am .15
3am 1.2
8am 2.8
2:30PM 1.75
9PM .40
24 hour basal total 36.55
I:CHO ratio 4
Sensitivity 15
Active insulin 3 hours
Discussed with patient benefits of starting Farxiga, he is agreeable. CR elevated, 1.7 today, will assess tomorrow and consider starting farxiga at that time if cr improved.
Discussed with nurse.
Will follow
Diabetes History
- -
Type of Diabetes: 2 requiring insulin
Pre-Admission Diabetes Regimen
04/28/25
02:12
Creatinine 1.7 H
Lab Results
Hemoglobin A1c Cancelled 04/23/25 08:37
Insulin Pump Settings
IP Diabetes Regimen
04/27/25 04/27/25 04/27/25
12:53 15:55 18:08
Glucose
POC Glucose 139 H 134 H 104 H
10/04/27/25 04/27/25
19:53 22:03 23:57
Glucose
POC Glucose 143 H 111 H 86
04/28/25 04/28/25 04/28/25
02:03 02:12 04:07
Glucose 169 H
POC Glucose 174 H 127 H
04/28/25 04/28/25 04/28/25
06:12 07:53 10:17
Glucose
POC Glucose 132 H 115 H 97
Patient Education
[2025-04-28 12:01] LABS: Glucose - Point of Care 153 mg/dl (70-99)
--- NOTE | 2025-04-28 12:25 | CARDSERVLU ---
Echocardiogram with Lumason completed after protocol screening completed. Allergies verified.
Patent IV site: ___Rt hand__
IV site flushed with 0.9% NaCl pre and post administration.
Diluted bolus method utilized to enhance visualization of ventricular parr.
Total volume given: ___6.0_ mL
Patient tolerated all procedures well without complications.
--- NOTE | 2025-04-28 12:51 | W.PN.INTV ---
Today's Communication / Plan
Recommendations
- Insulin infusion currently being transitioned to insulin pump
- Apartment Community Assistant Manager service will sign off, please call as needed
Assessment
-
49-year-old gentleman with known multivessel coronary artery disease s/p coronary artery bypass graft and left atrial appendage exclusion, POD # 2
Titrated off pressors per protocol, MAP normal, not requiring any pressors
ECHO reviewed with normal function
CXR with b/l lower lobe atelectasis. Appears to be improving.
Extubated per protocol
Currently saturating in mid 90s on room air, work of breathing normal, no respiratory distress noted.
No prior known history of pulmonary disease
Can add nebulizers if needed
Aspiration precautions
Encouraged incentive spirometry, OOB/ambulation/early mobility
Advance diet as tolerated following extubation
GI prophylaxis: Protonix
Monitor critical I/O's
Bull/chest tube output
Hb/platelets postoperatively, mild drift
Trend CBC for now
Can transfuse if indicated for Hb <7, plt <50 in surgical patients
DVT prophylaxis including SCDs
Insulin protocol initiated and ongoing
Transition to insulin pump 04/28.
Other medical diagnoses:
- Gastroparesis
- Type 1 diabetes
- Hypertension, hyperlipidemia
- Chronic GERD
- Obesity, BMI 35.1. No prior known h/o JOSÉ MIGUEL
- History of coronary artery disease, status post PCI in 2019
Critical Care time 36 mins -- The patient is admitted for acute critical illness for the treatment of vital organ failure and/or prevention of further life-threatening conditions. Total care includes time spent in review of history, physical exam,
medications, hemodynamic/ventilator parameters, laboratory data, imaging and discussion with house staff, pharmacy, respiratory therapy, casing cooker, and nursing
Updated family at bedside
Data:
NOLBERTO 04/2025: Overall LVEF is approximately 60% with no RWMA.
Mild concentric left ventricular hypertrophy.
All valves appear to be functioning normally.
Aorta is normal size with minimal atheroma.
LHC 04/2025: 1. Multivessel coronary artery disease with high-grade stenosis in the mid LAD just beyond a very proximally arising large diagonal branch which has a 95% ostial stenosis. The IFR in the LAD measured well below the ischemic threshold
at 0.83, 0.83, and 0.83. Angiographically significant coronary disease is noted in the distal RCA and mid PDA.
2. Preserved LV systolic function
CXR 04/26/2025: 1. No needle or other metallic foreign body identified.
2. Endotracheal tube, esophageal probe, right internal jugular central venous catheter, bilateral chest drains in position. No pneumothorax.
3. Hypoaerated lungs without consolidation.
Chest CT 04/2025: No significant or actionable incidental findings.
Subjective Dataa
Subjective Data
Date of Service:
Date of Service: April 28, 2025
Subjective:
Patient comfortably sitting in chair in no acute distress. Currently saturating well on room air.
Review of Systems
Genitourinary: Other (No new symptoms reported)
Objective Data
Data Reviewed
Vital Signs / I&O / Oxygen:
Vital Signs
Temp Pulse Resp BP Pulse Ox
98.7 F 92 28 109/88 92
04/28/25 08:43 04/28/25 09:15 04/28/25 09:15 04/28/25 09:00 04/28/25 10:43
Intake and Output
04/27/25 04/28/25 04/29/25
06:59 06:59 06:59
Intake Total 1334.9 / 1334.9 1000.5 / 1000.5 374 / 374
Output Total 1033 / 1033 785 / 785 0 / 0
Balance 301.9 / 301.9 215.5 / 215.5 374 / 374
SaO2 92
Nasal Cannula flow liters per 2
minute
Physical Exam
General: Comfortable
HEENT: Normocephalic
Cardiovascular: S1-S2
Respiratory: Clear and Non-Labored Respirations
GI: Soft and Non Distended
Neurology: Awake and Alert
Skin: Warm
Labs/Micro/Reports
Lab Data
04/28/25 02:12
04/28/25 02:12
[2025-04-28] MEDS: PATIENT'S OWN INSULIN PUMP SC ×2 (13:55→22:38)
[2025-04-28] MEDS: NSS IV (13:56)
[2025-04-28] MEDS: FLEXERIL 5 MG PO (14:04)
--- NOTE | 2025-04-28 15:29 | PTCARENOTE ---
Ambulated in hallway with RN. Dizziness after approx 20 feet, sat down to rest. Recovered, and able to ambulate back to room. VSS. Assessment otherwise unchanged from prior.
[2025-04-28 16:01] LABS: Glucose - Point of Care 246 mg/dl (70-99)
[2025-04-28] MEDS: LIPITOR 80 MG PO (16:01)
--- NOTE | 2025-04-28 16:07 | PTCARENOTE ---
Pain better this afternoon, VSS, Assessment otherwise unchanged from prior.
[2025-04-28] MEDS: ANESTHETIC LOZENGE 1 LOZENGE PO (17:49)
[2025-04-28 17:55] LABS: Blood Urea Nitrogen 31 mg/dl (9-20); Calcium 8.4 mg/dl (8.4-10.2); Carbon Dioxide 24 mmol/L (22-30); Chloride 104 mmol/L (98-107); Estimated Creatinine Clearance 80 ml/min; Glucose 238 mg/dl (70-99); Potassium 4.4 mmol/L (3.5-5.1); Sodium 132 mmol/L (135-145); eGFR > 60.00
[2025-04-28] MEDS: PATIENT'S OWN INSULIN PUMP 25 UNITS SC (18:21)
--- NOTE | 2025-04-28 20:00 | PTCARENOTE ---
Assumed care of patient @ 1900. Recieved pt laying in bed
Neuro- Aox3. Flat affect,Pupils equal, round and reactive, moves all extremities appropriately.
CV- NSR, ocasionally ST on tele, Heart tones audible, V wire insulated. Good pulses, no edema noted.
Lungs -clear, diminished on ra satting high mid 90s. poor respiratory effort noted, IS use encouraged.
GI- hypoactive, tolearted diet but reportedly had poor appetite today.
- Voiding clear joelle urine in hat/urinal
Skin- MSI covered with dressing, R leg, R groin OT. 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
Lines- R IJ cordis, PIV all patent.
Pt resting with call piper within reach .
[2025-04-28] MEDS: TOPROL XL 12.5 MG PO (20:20)
[2025-04-28] MEDS: REMOVE LIDOCAINE PATCH 1 PATCH REMOVE (20:22)
[2025-04-28 20:29] LABS: Glucose - Point of Care 223 mg/dl (70-99)
[2025-04-29] VITALS (15 sets, daily range): BP systolic 100–146; BP diastolic 58–73; PULSE 87; O2SAT 95–98; BMI 35.7
--- NOTE | 2025-04-29 | PTCARENOTE ---
pt resting comfortably in bed, no change in assessment .
--- NOTE | 2025-04-29 04:00 | PTCARENOTE ---
labs drawn and sent, pt resting comfortably, no change in assessment .
[2025-04-29 05:03] LABS: Hematocrit 29.4 % (39.0-52.0); Hemoglobin 9.6 g/dL (13.0-18.0); Mean Corp Hgb Conc. 32.7 g/dL (33.0-37.0); Mean Corpuscular Volume 98.7 fL (80.0-94.0); Platelet Count 164 10^3/uL (130-400); Red Cell Dist. Width 13.2 % (11.5-14.5)
[2025-04-29] MEDS: ROXICODONE 5 MG PO ×2 (05:26→20:55)
[2025-04-29] MEDS: TYLENOL 975 MG PO ×3 (05:26→23:00)
[2025-04-29 05:36] LABS: Blood Urea Nitrogen 33 mg/dl (9-20); Calcium 8.5 mg/dl (8.4-10.2); Carbon Dioxide 27 mmol/L (22-30); Chloride 104 mmol/L (98-107); Estimated Creatinine Clearance 93 ml/min; Glucose 98 mg/dl (70-99); Magnesium 1.9 mg/dl (1.6-2.3); Potassium 4.4 mmol/L (3.5-5.1); Sodium 135 mmol/L (135-145); eGFR > 60.00
--- NOTE | 2025-04-29 08:00 | PTCARENOTE ---
Assumed care of patient from operations supervisor 2nd shift RN. AAO x 3 Flat affect remains. However states hes hoping to go home tomorrow. SR on monitor. Epicardial wire insulated. Room air 95%, IS to 750. Coughing up occasional thick white sputum. Abdomen
obese positive bowel sounds t/o. Voding independently. Surgical sites c,d,i. Pulses palpable. Plan for today discussed.
--- NOTE | 2025-04-29 08:00 | W.PN.CT ---
Today's Communication / Plan
-
-pod #3
-no issues overnight
-Cr is improving - 1.2 today (1.7 peak on 04/28 and 0.9 preop)
-wean off O2 as tolerated - pOx 94% on 2L
-continue current meds
-encourage IS, OOB, ambulate
Assessment / Plan
-
Assessment:
-S/P Median sternotomy/ CABG x 3 (YANET to LAD, GSV to D1, GSV to mid-RPDA)/Endoscopic harvest/prep of RLE GSV/Open-endoscopic exploration of L RA -not utilized d/t significant calcifications/ ELAA (35mm AtriClip), by Dr. Humphries, 04/26/25, pod#3
-Multivessel CAD
-USA
-LVEF 60%, per intraop NOLBERTO
-Hx of CAD S/P PCI with stent to apical LAD and proximal RI, 11/30/2018
-HTN
-T1DM (A1C 7.7, on insulin pump)
-Gastroparesis
-HLD
-Class 2 obesity (BMI 35.1)
-GERD
-S/P Jaw surgery
-S/P throat nodule removal
-S/P Right 5th metatarsal surgery
-Acute postop blood loss/Anemia (stable without blood transfusion)
-Acute postop atelectasis
-Acute postop hypovolemia with subsequent hypervolemia
-Suspected acute postop pericarditis on EKG, + rub
-Acute postop DAMON- improving
-Acute postop tachycardia
Discussed patient care with: Nursing and Care Team
Subjective
Procedure
S/P Median sternotomy/ CABG x 3 (YANET to LAD, GSV to D1, GSV to mid-RPDA)/Endoscopic harvest/prep of RLE GSV/Open-endoscopic exploration of L RA -not utilized d/t significant calcifications/ ELAA (35mm AtriClip), by Dr. Humphries, 04/26/25, pod#1
-
Date of Service: April 29, 2025
Objective Data
-
Lab Results
04/29/25 04:49
04/29/25 04:49
PT 16.7 Sec (11.4-14.6) H 04/26/25 14:23
INR 1.33 04/26/25 14:23
APTT 29.2 Sec (23.4-35.0) 04/26/25 14:23
Vital Signs
Vital Signs
Temp Pulse Resp BP Pulse Ox
98.9 F 94 14 111/67 94
04/29/25 00:00 04/29/25 05:15 04/29/25 04:00 04/29/25 04:26 04/29/25 05:15
CT Intake/Output/Weight
04/28/25 04/29/25 04/29/25
18:59 06:59 18:59
Intake Total 804 / 1764 960 / 1764
Output Total 300 / 700 400 / 700
Balance 504 / 1064 560 / 1064
SaO2: 94
Physical Exam
-
General: Awake and AOx3
Cardiovascular: Regular rate & rhythm, No Murmurs and No Rub
Respiratory: Decreased Breath Sounds
Sternum: Stable
Incision: Clean, Dry and Intact
Extremities: No Edema
Abdomen: soft, nontender, nondistended, + bowel sounds
Data Reviewed
-
Lab Results: Results Reviewed
Medications: Active Meds Reviewed
Chest X-Ray: Report Reviewed and Image Reviewed
ECG: Report Reviewed and Image Reviewed
[2025-04-29] MEDS: ZETIA 10 MG PO (08:30)
[2025-04-29] MEDS: PROTONIX 40 MG PO (08:30)
[2025-04-29] MEDS: BACTROBAN 2% OINTMENT 1 APPLIC NASAL ×2 (08:30→20:30)
[2025-04-29] MEDS: LOW STRENGTH ASPIRIN 81 MG PO (08:30)
[2025-04-29] MEDS: COLCHICINE 0.3 MG PO (08:30)
[2025-04-29] MEDS: PLAVIX 75 MG PO (08:30)
[2025-04-29] MEDS: PACERONE 400 MG PO ×3 (08:31→22:59)
[2025-04-29] MEDS: VITAMIN B-12 1000 MCG PO (08:31)
[2025-04-29] MEDS: NEURONTIN 100 MG PO ×3 (08:31→22:59)
[2025-04-29] MEDS: SENOKOT 8.6 MG PO ×2 (08:31→20:30)
[2025-04-29] MEDS: MAGNESIUM OXIDE 400 MG PO ×2 (08:32→20:30)
[2025-04-29 08:34] LABS: Glucose - Point of Care 143 mg/dl (70-99)
--- NOTE | 2025-04-29 09:07 | PN.DE.MGMTRT ---
Insulin Management
- -
04/29/2025 Diabetes Management Consult Follow up
Patient admitted 04/26 for CABG. PMH MVCAD, diabetes, CT, HLD, HTN, asthma, neuropathy, JOSÉ MIGUEL. Prior to admission was using OmniPod with fiasp insulin and Mounjaro 10 mg every Saturday. A1C on admission 7.7%. Cr .7, eGFR > 60 today.
POD 3 s/p CABG x 3. Patient is awake alert and oriented out of bed in chair. States he was diagnosed with diabetes @ age 19, sees Giovani Castro at [facility] for ongoing diabetes care.
04/28 Transitioned off of Critical Care glycemic protocol insulin infusion ~ 1pm. DexCom G6 started at 9:52, 2 hour warm up. Returned at 11:45 to resume OmniPod insulin pump, patient prepared and applied pod. Insulin infusion stopped at 1:15pm.
Glucose elevated pre dinner, 246, took no insulin for lunch. Did correct the 246, HS glucose 223, 4:49AM glucose 98.
04/29 Fasting glucose 143.
Pump settings as follows:
Basal
12am .15
3am 1.2
8am 2.8
2:30PM 1.75
9PM .40
24 hour basal total 36.55
I:CHO ratio 4
Sensitivity 15
Active insulin 3 hours
Discussed with patient benefits of starting Farxiga, he is agreeable. CR improved today, 1.2 today, will start farxiga 10 mg daily.
Discussed with nurse.
Will follow
Diabetes History
- -
Type of Diabetes: 2 requiring insulin
Pre-Admission Diabetes Regimen
04/28/25 04/29/25
17:27 04:49
Creatinine 1.4 H 1.2
Lab Results
Hemoglobin A1c Cancelled 04/23/25 08:37
Insulin Pump Settings
IP Diabetes Regimen
04/28/25 04/28/25 04/28/25
10:17 11:59 16:00
Glucose
POC Glucose 97 153 H 246 H
04/28/25 04/28/25 04/29/25
17:27 20:27 04:49
Glucose 238 H 98
POC Glucose 223 H
04/29/25
08:27
Glucose
POC Glucose 143 H
Patient Education
[2025-04-29] MEDS: LIDOCAINE 4% PATCH TOPICAL (09:19)
[2025-04-29] MEDS: PATIENT'S OWN INSULIN PUMP 8.95 UNITS SC (09:19)
[2025-04-29] MEDS: TOPROL XL PO (09:20)
--- NOTE | 2025-04-29 10:42 | W.PN.CARDCBS ---
Addendum entered and electronically signed by Dereck Lopez MD 04/29/25 13:38:
I saw and examined the patient.
The Pot Fluxer's note was reviewed and I agree with the note.
Comment:
GEN: No distress, awake, Ox3
HEENT: supple, anicteric, mmm
LUNGS: CTA, no wheezes/rales
CV: Reg, S1/S2, no rub
ABD: soft, BS+, NT/ND
EXT: No edema
NEURO: Gross non-focal
SKIN: No rash
Plan:
Creatinine back down to 1.2.
Echo yesterday with small pericardial effusion and normal LVEF.
Continue low-dose colchicine.
Continue midodrine to support blood pressure.
Continue amiodarone/Toprol
Original Note:
Today's Communication / Plan
-
follow ortho VS
ambulate
Cr improving
in SR
post op care
Impression / Plan
-
Primary jute bag cutting machine operator: Dr. Brian Robertson
Primary CARE physician: Dr. Carole Deleon
IMPRESSION:
- Coronary artery disease involving proximal-mid LAD, large diagonal branch, and PDA
Coronary artery bypass surgery with HART-LAD, SVG-D1, SVG-mid RPDA 04/26/25
-Old myocardial infarction
- Diabetes mellitus: Poorly controlled
- Essential hypertension
- Mixed hyperlipidemia
-GERD
RECOMMENDATIONS:
- s/p HART-LAD, SVG-D1, SVG-mid RPDA 04/26/25
- Cr improved to 1.2. remains with dizziness at times but tolerable. states he had issues with dizziness as OP as well. follow ortho VS
- On midodrine 5 mg 3 times daily, wean as able. Toprol intermittently being given due to relative hypotension
- EKG 04/27 with evidence of pericarditis. Continue low-dose colchicine
- In sinus rhythm/sinus tach on review of telemetry. Amiodarone dose was increased to 400 mg [address] surgery 04/27. No A-fib noted
- continue post op care, OOB/IS
- d/w nursing.
Progress Note - Contact Center Engineer
Subjective
Date of Service: April 29, 2025
Reports minimal pain. Reports dizziness particularly with standing, however has pre-existing history of this
Objective
Labs:
04/29/25 04:49
04/29/25 04:49
Labs
Hgb 9.6 g/dL (13.0-18.0) L 04/29/25 04:49
Hct 29.4 % (39.0-52.0) L 04/29/25 04:49
Plt Count 164 10^3/uL (130-400) 04/29/25 04:49
PT 16.7 Sec (11.4-14.6) H 04/26/25 14:23
INR 1.33 04/26/25 14:23
APTT 29.2 Sec (23.4-35.0) 04/26/25 14:23
Sodium 135 mmol/L (135-145) 04/29/25 04:49
Potassium 4.4 mmol/L (3.5-5.1) 04/29/25 04:49
BUN 33 mg/dl (9-20) H 04/29/25 04:49
Creatinine 1.2 mg/dL (0.7-1.3) 04/29/25 04:49
Glucose 98 mg/dl (70-99) 04/29/25 04:49
Vital Signs and I&O:
Vital Signs
Temp Pulse Resp BP Pulse Ox
98.7 F 84 18 102/56 95
04/29/25 08:00 04/29/25 08:45 04/29/25 08:00 04/29/25 08:31 04/29/25 08:58
Vital Signs
Temp Pulse Resp BP Pulse Ox
98.7 F 84 18 102/56 95
04/29/25 08:00 04/29/25 08:45 04/29/25 08:00 04/29/25 08:31 04/29/25 08:58
Intake & Output
04/27/25 04/28/25 04/29/25 04/30/25
07:59 07:59 07:59 07:59
Intake Total 1334.9 / 1351.9 1000.5 / 1000.5 1763 / 2013 250 / 250
Output Total 1033 / 1093 785 / 785 700 / 700
Balance 301.9 / 258.9 215.5 / 215.5 1064 / 1314 250 / 250
Physical Exam
Physical Exam
GEN: No distress, awake, alert, oriented x3.
HEENT: supple, anicteric, mmm, eomi
LUNGS: CTA B/L, no wheezes
CV: Reg, S1/S2, no murmur
ABD: soft, BS+, NT/ND
EXT: No cyanosis, clubbing. 1+ edema of B/L LE
NEURO: Gross non-focal
SKIN: Warm, pink, dry. No rash. Sternotomy dressing c/d/i.
--- NOTE | 2025-04-29 11:09 | CM ---
Chart reviewed. Patient independent of ADLS, lives with his and children in a 2 [address], 2 DEDRA, 0 DME. Patient will need to do the stairs before discharged. Plan is for the patient to return home with CT Transitional RN. CM to follow
[2025-04-29 11:41] LABS: Glucose - Point of Care 123 mg/dl (70-99)
[2025-04-29] MEDS: PATIENT'S OWN INSULIN PUMP SC (11:41)
[2025-04-29] MEDS: NSS IV (11:41)
--- NOTE | 2025-04-29 11:45 | PTCARENOTE ---
Resting in bed. Denies complaint at present. SR on monitor. VSS. Assessment otherwise unchanged from prior. at bedside.
[2025-04-29] MEDS: FARXIGA 10 MG PO (13:06)
[2025-04-29] MEDS: FLEXERIL 5 MG PO (14:38)
--- NOTE | 2025-04-29 14:42 | W.PN.UPDATE ---
Update Note
Progress Note Update
No pacing noted on telemetry since surgery. Bipolar ventricular wire clipped at skin level.
--- NOTE | 2025-04-29 16:29 | PTCARENOTE ---
Resting in room after ambulating with RN. Tolerating increased activity. Discussed with RN anxiety about going home, very tearful. Emotional support provided. VSS, Assessment otherwise unchanged from prior.
[2025-04-29 17:28] LABS: Glucose - Point of Care 111 mg/dl (70-99)
[2025-04-29] MEDS: PATIENT'S OWN INSULIN PUMP 1 UNITS SC (17:29)
[2025-04-29] MEDS: LIPITOR 80 MG PO (17:30)
[2025-04-29] MEDS: TOPROL XL 12.5 MG PO (20:29)
[2025-04-29] MEDS: REMOVE LIDOCAINE PATCH REMOVE (20:30)
[2025-04-29 22:45] LABS: Glucose - Point of Care 98 mg/dl (70-99)
[2025-04-29] MEDS: PATIENT'S OWN INSULIN PUMP 13.5 UNITS SC (22:57)
[2025-04-30] VITALS (9 sets, daily range): BP systolic 112–155; BP diastolic 62–79; PULSE 87; O2SAT 97–100; BMI 35.7
--- NOTE | 2025-04-30 02:00 | PTCARENOTE ---
Assumed care of patient at change of shift. Pt AAOx3, flat, and sitting in chair at 19:15.
At approx 20:20 patient laying in bed. Patient reports while sitting in the chair he felt 'dizzy' and had ambulated himself back to bed. Patient did not call for assistance or notify nurse during that episode. BP 146/73 when laying flat. Educated
patient about the importance to notify nursing staff if having any pain, dizziness, or requiring to ambulate in the room. Pt verbalized understanding. Patient c/o 8/10 sternal chest discomfort, described pain as 'sharp'. PRN Roxicodone administered
at 20:55. Patient w/ neuropathy in b/l feet, and complained of numbness in left hand. Attempted to palpate left radial pulse pt c/o discomfort. Left radial pulse + w/ doppler. This RN spoke w/ CT ARTIS Torres, aware and no new orders obtained at this
time. Pt remains NSR w/ BBBC on tele, HR in the 80-90's at rest. See skin wound documentation for further assessment.Sternal precautions maintained, call piper in reach.
--- NOTE | 2025-04-30 03:11 | W.PN.CT ---
Today's Communication / Plan
-
-pod #4
-patient dizzy overnight when OOB, no orthostasis noted.
-Cr is improving - today (1.7 peak on 04/28 and 0.9 preop)
-wean off O2 as tolerated - pOx 94% on 2L
-continue current meds
-encourage IS, OOB, ambulate
-discharge planning
Assessment / Plan
-
Assessment:
-S/P Median sternotomy/ CABG x 3 (YANET to LAD, GSV to D1, GSV to mid-RPDA)/Endoscopic harvest/prep of RLE GSV/Open-endoscopic exploration of L RA -not utilized d/t significant calcifications/ ELAA (35mm AtriClip), by Dr. Humphries, 04/26/25, pod#4
-Multivessel CAD
-USA
-LVEF 60%, per intraop NOLBERTO
-Hx of CAD S/P PCI with stent to apical LAD and proximal RI, 11/30/2018
-HTN
-T1DM (A1C 7.7, on insulin pump)
-Gastroparesis
-HLD
-Class 2 obesity (BMI 35.1)
-GERD
-S/P Jaw surgery
-S/P throat nodule removal
-S/P Right 5th metatarsal surgery
-Acute postop blood loss/Anemia (stable without blood transfusion)
-Acute postop atelectasis
-Acute postop hypovolemia with subsequent hypervolemia
-Suspected acute postop pericarditis on EKG, + rub
-Acute postop DAMON- improving
-Acute postop tachycardia
Subjective
Procedure
S/P Median sternotomy/ CABG x 3 (YANET to LAD, GSV to D1, GSV to mid-RPDA)/Endoscopic harvest/prep of RLE GSV/Open-endoscopic exploration of L RA -not utilized d/t significant calcifications/ ELAA (35mm AtriClip), by Dr. Humphries on 04/26/25
-
Date of Service: April 30, 2025
Objective Data
Vital Signs
Vital Signs
Vital Signs
Temp Pulse Resp BP Pulse Ox
98 F 93 20 128/67 91
04/30/25 04:24 04/30/25 06:00 04/30/25 04:24 04/30/25 04:36 04/30/25 04:24
CT Intake/Output/Weight
04/29/25 04/29/25 04/30/25
06:59 18:59 06:59
Intake Total 960 / 1764 970 / 1210 240 / 1210
Output Total 400 / 700 300 / 900 600 / 900
Balance 560 / 1064 670 / 310 -360 / 310
SaO2: 92
Physical Exam
-
General: AOx3
Cardiovascular: Regular rate & rhythm
Respiratory: Decreased Breath Sounds
Sternum: Stable
Incision: Dressing Intact
Extremities: No Edema
--- NOTE | 2025-04-30 04:50 | PTCARENOTE ---
Morning vitals obtained this am, pt laying down BP 121/62. HR remains in the 90's. Patient needed to void, and refuses to use urinal. This RN assisted patient into a sitting position, c/o dizziness bp 112/65. Instructed patient to perform deep
breathing exercises. Patient voided in bathroom, and morning weight obtained. Patient remained dizzy, BP rechecked when sitting on the side of the bed w/ a result of 128/67. Assisted patient back to bed. After lying in bed for a couple mins, he
reports that the dizziness had subsided. Brian BIGGS PA made aware, no new orders obtained at this time. Call piper in reach.
[2025-04-30] MEDS: TYLENOL 975 MG PO ×2 (05:37→14:15)
[2025-04-30 07:12] LABS: Glucose - Point of Care 116 mg/dl (70-99)
--- NOTE | 2025-04-30 08:27 | PN.DE.MGMTRT ---
Insulin Management
- -
04/30/2025 Diabetes Management Follow up
Patient admitted 04/26 for CABG. PMH: MVCAD, diabetes, SC, HLD, HTN, asthma, neuropathy, JOSÉ MIGUEL. Prior to admission was using Omnipod with Fiasp insulin and Mounjaro 10 mg every Saturday. States he was diagnosed with diabetes @ age 19, marts Giovani
Matthew at [facility] for ongoing diabetes care.
A1C on admission 7.7%. Cr 0.7, eGFR > 60 today.
Patient is awake alert and oriented out of bed in chair, able to discuss diabetes care plan. at bedside.
POD # 3 s/p CABG x 3. 04/28 Transitioned off of Critical Care glycemic protocol insulin infusion to his OmniPod insulin pump and DexCom G6.
Discussed benefits of starting Farxiga with pt and he was agreeable, Farxiga 10mg was started 04/29
04/29 Glucose stable and in range, 111 to 143. Fasting glucose 116 POC this AM.
Pump settings as follows:
Basal
12am .15
3am 1.2
8am 2.8
2:30PM 1.75
9PM .40
24 hour basal total 36.55
I:CHO ratio 4
Sensitivity 15
Active insulin 3 hours
Will make no changes to current regimen. Cont current pump settings and Farxiga 10 mg daily.
Discussed with nurse. Will cont to follow
Diabetes History
- -
Type of Diabetes: 2 requiring insulin
Pre-Admission Diabetes Regimen
Lab Results
Hemoglobin A1c Cancelled 04/23/25 08:37
Insulin Pump Settings
IP Diabetes Regimen
04/29/25 04/29/25 04/29/25
08:27 11:38 17:27
POC Glucose 143 H 123 H 111 H
04/29/25 04/30/25
22:40 07:10
POC Glucose 98 116 H
Meal type: Dinner
Amount consumed: 100%
Patient Education
[2025-04-30] MEDS: BACTROBAN 2% OINTMENT 1 APPLIC NASAL (08:55)
[2025-04-30] MEDS: PROTONIX 40 MG PO (08:56)
[2025-04-30] MEDS: SENOKOT 8.6 MG PO (08:56)
[2025-04-30] MEDS: NEURONTIN 100 MG PO ×2 (08:56→16:07)
[2025-04-30] MEDS: VITAMIN B-12 1000 MCG PO (08:56)
[2025-04-30] MEDS: PACERONE 400 MG PO (08:57)
[2025-04-30] MEDS: PLAVIX 75 MG PO (08:57)
[2025-04-30] MEDS: FARXIGA 10 MG PO (08:58)
[2025-04-30] MEDS: LOW STRENGTH ASPIRIN 81 MG PO (08:58)
[2025-04-30] MEDS: MAGNESIUM OXIDE 400 MG PO (08:58)
[2025-04-30] MEDS: COLCHICINE 0.3 MG PO (08:59)
[2025-04-30] MEDS: FLUSH (NSS) 1 FLUSH IV (09:01)
[2025-04-30] MEDS: ZETIA 10 MG PO (09:01)
[2025-04-30] MEDS: TOPROL XL 12.5 MG PO (09:01)
[2025-04-30] MEDS: LIDOCAINE 4% PATCH 1 PATCH TOPICAL (09:02)
[2025-04-30] MEDS: MILK OF MAGNESIA 30 ML PO (09:03)
[2025-04-30] MEDS: PATIENT'S OWN INSULIN PUMP 11.5 UNITS SC (10:00)
--- NOTE | 2025-04-30 10:06 | PTCARENOTE ---
Patient sitting oob in the chair this morning, states he is not having any pain. Encouraged to order breakfast, states he has not had an appetite and has not moved his bowels but is passing flatus. Given prn MOM as ordered.
[2025-04-30 10:10] LABS: Hematocrit 28.7 % (39.0-52.0); Hemoglobin 9.6 g/dL (13.0-18.0); Mean Corp Hgb Conc. 33.4 g/dL (33.0-37.0); Mean Corpuscular Volume 93.5 fL (80.0-94.0); Platelet Count 246 10^3/uL (130-400); Red Cell Dist. Width 13.2 % (11.5-14.5)
[2025-04-30 10:20] LABS: Blood Urea Nitrogen 28 mg/dl (9-20); Calcium 8.5 mg/dl (8.4-10.2); Carbon Dioxide 26 mmol/L (22-30); Chloride 104 mmol/L (98-107); Estimated Creatinine Clearance 101 ml/min; Glucose 121 mg/dl (70-99); Magnesium 2.1 mg/dl (1.6-2.3); Potassium 4.1 mmol/L (3.5-5.1); Sodium 136 mmol/L (135-145); eGFR > 60.00
--- NOTE | 2025-04-30 10:45 | W.DCSUMMARY ---
Discharge Summary
Discharge Data
Date of Admission: 04/26/25
Date of Discharge: 04/30/25
-
Pending Results: No
Hospital Course
Primary care physician: Sari Deleon
Outpatient hydrometeorology teacher: Rj Lopez
Inpatient consultants: [facility], Pulmonary refrigeration specialist, diabetes nurse practitioner
Procedures:
1. CABG, left atrial appendage clip
Primary Diagnosis:
1. multi-vessel coronary disease S/P PCI with stent to apical LAD and proximal RI, 11/30/2018
Secondary Diagnoses:
1. HTN
2. T1DM (A1C 7.7, on insulin pump)
3. Gastroparesis
4. HLD
5. Class 2 obesity (BMI 35.1)
6. GERD
7. S/P Jaw surgery
8. S/P throat nodule removal
9. S/P Right 5th metatarsal surgery
-Acute postop blood loss/Anemia (stable without blood transfusion)
-Acute postop atelectasis
-Acute postop hypovolemia with subsequent hypervolemia
-Suspected acute postop pericarditis on EKG, + rub
-Acute postop DAMON- improving
-Acute postop tachycardia
-Acute post-op pericarditis
HPI: 49-year-old male was electively admitted on 04/26/2025 for CABG due to multivessel coronary disease.
Hospital course: Patient was taken to the operating room and underwent CABG x 3 (YANET to LAD, GSV to D1, GSV to mid-RPDA) and ELAA (35mm AtriClip) By Dr. Jordan Humphries. Radial artery was explored but not utilized as it was a small and calcified.
For further details, please see operative report. Patient required no intraoperative blood products and returned to CVICU on Levophed, Precedex, and insulin. Patient was extubated at approximately 1600 on day of surgery. Postoperative day #1 ECG
reported pericarditis with colchicine issues. Aspirin Plavix were initiated. Midodrine was added to support blood pressure as beta-bradley was resumed. On postoperative day 2, chest tubes were removed and insulin infusion transitioned to patient's
home pump with assistance of diabetic nurse practitioner. Patient developed DAMON with creatinine max of 1.7. Lasix initiated. TTE was completed and reported an EF of 65% with small pericardial effusion. Repeat creatinine in the afternoon improved
to 1.4. On postoperative #3, the right IJ was removed. Bipolar V wire was clipped at skin level. Patient ambulated in halls. On postoperative day #4, creatinine further decreased to 1.1. Hemoglobin stable at 9.6, WBC 1.9, platelet 246K. Imdur,
nitroglycerin, and losartan were discontinued on discharge as blood pressure remained low normal range. Midodrine was discontinued. Toprol dose was decreased from 50 to 25 mg daily. Two view CXR reported no acute pulmonary abnormality. Patient
really in halls and completed steps and is deemed stable for discharge to home. Patient will be followed by transitional nurse team and have follow up BMP in 1 week.
Home medication changes:
STOP Imdur, Nitroglycerin, Losartan
CHANGE: Toprol 50mg decreased to 25mg daily
Discharge Plan
-
Patient Disposition: Home (Routine Discharge)
Discharge Diagnosis/Procedures: CABG x 3 (04/26/25)
Condition: Good
Diet: Low Cholesterol, Low Sodium and Diabetic, Carb Controlled
Activity: No strenuous activity
Driving Restrictions: Not until seen by your Dr
Bathing Restrictions: OK to Shower
Blood Work: BMP in 1 week
Other Services: Cardiac Rehab
Specialty Instructions: Weigh Daily- Call MD for wt gain/loss 3 lbs overnight/5 lbs in 1 week
Referrals:
CT Transitional Care Nurse [Outside]
[facility]. Cardiac Rehab [Outside] - 06/02/25 8:30 am
Referral Note: Cardiac Rehab Orientation appointment is on 06/02/25 at 8:30 AM
The Cardiac Rehab gym is located on the first floor of the [facility].
Brian Robertson MD [Active, Cardiology] - 05/27/25 11:20 am
Referral Note: You have cardiology follow-up with Dr. Brian Robertson on May 27 at 11:20 am in [address] [place]. If you are unable to make this appointment please call [phone] to reschedule
Wilbert Hernandez MD [Active, Pulmonary Medicine]
Sari Deleon MD [Family Provider]
Jordan Humphries MD [Active, Cardiac Surgery] - 06/01/25 2:00 pm
Prescriptions:
New
colchicine 0.6 mg Tablet
0.3 mg PO DAILY Qty: 30 0RF
metoprolol succinate [Toprol XL] 25 mg tablet extended release 24 hr
25 mg PO DAILY Qty: 30 1RF
acetaminophen 325 mg Tablet
650 mg PO Q4HPRN PRN (Reason: mild pain,headache,temp >101F ) Qty: 0 0RF
gabapentin 100 mg Capsule
100 mg PO TID Qty: 30 0RF
oxycodone 5 mg Tablet
5 mg PO Q4HPRN PRN (Reason: severe pain) Qty: 10 0RF
dapagliflozin propanediol 10 mg Tablet
10 mg PO DAILY Qty: 30 2RF
cyclobenzaprine 10 mg Tablet
5 mg PO Q8HPRN PRN (Reason: muscle spasm) Qty: 10 0RF
Continued
cyanocobalamin (vitamin B-12) 1,000 MCG tablet
1,000 mcg PO DAILY
ezetimibe 10 MG tablet
10 mg PO DAILY
Praluent Pen 75 mg/mL Pen Injector
75 mg SC Q14D Qty: 0
Mounjaro 10 mg/0.5 mL Pen Injector
10 mg SC TU
atorvastatin 80 MG tablet
80 mg PO QPM
aspirin 81 MG tablet,chewable
81 mg PO DAILY
coenzyme Q10 [CoQ-10] 100 mg Capsule
100 mg PO DAILY
amlodipine 2.5 mg tablet
2.5 mg PO QPM
pantoprazole 20 mg Tablet,Delayed Release (Dr/Ec)
20 mg PO QPM
Fiasp U-100 Insulin 100 unit/mL Solution
1 sliding scale dose SC AC
Fiasp U-100 Insulin 100 unit/mL Solution
0 unit SC Q1H
clopidogrel [Plavix] 75 mg Tablet
75 mg PO DAILY
Discontinued
nitroglycerin 0.4 mg tablet, sublingual
0.4 mg sublingual Q5-15M PRN (Reason: chest pain) Qty: 20 0RF
losartan 50 mg Tablet
50 mg PO DAILY
isosorbide mononitrate 30 mg tablet extended release 24 hr
60 mg PO DAILY
metoprolol succinate 50 mg tablet extended release 24 hr
50 mg PO BID
Discharge Orders:
Discharge Patient (As Directed); Ordered 04/30/25
Ordered By: Stella Funez
Care Plan Goals
Care Plan Goals:
Problem: Readiness for enhanced knowledge related to diagnosis and treatment plan
Goal: Understand your diagnosis and treatment plan needs, including medications if applicable.
Instructions: Know your diagnosis, underlying causes and treatment plan options, including medications if applicable. Consult with your health care team to learn about your diagnosis and treatment plan, including medications if applicable.
Discharge Date and Time
Print Language: [id number]
[2025-04-30] MEDS: DULCOLAX 10 MG PO (12:24)
--- NOTE | 2025-04-30 12:24 | W.PN.CARDCBS ---
Addendum entered and electronically signed by Lamin Frost MD 04/30/25 17:18:
I saw and examined the patient on morning rounds.
The Institutional Commodity Analyst's note was reviewed and I agree with the note.
Comment: Briefly, 49-year-old man past medical history of CAD with prior PCI in 2019 who presented earlier this month with chest discomfort and was found to have multivessel CAD. He was discharged and returned for surgical revascularization CABG x
3 on 04/26/2025.
He is doing well postoperatively. No cardiac complaints today.
Appears euvolemic on exam
Maintaining sinus rhythm on review of telemetry
ECG suggestive of pericarditis and small pericardial effusion on echo. Plan is to discharge on low-dose colchicine.
Would consider repeat echo as an outpatient
Treatment of CAD with aspirin/Plavix, atorvastatin/Zetia
Continue metoprolol and amlodipine as antianginals
Eventual cardiac rehab
Original Note:
Today's Communication / Plan
-
Stable for discharge from cardiac standpoint
Outpatient cardiology follow-up has been arranged
Impression / Plan
-
Primary poultry farm manager: Dr. Brian Robertson
Primary CARE physician: Dr. Carole Deleon
IMPRESSION:
- Multivessel coronary artery disease involving proximal-mid LAD, large diagonal branch, and PDA
Coronary artery bypass surgery with HART-LAD, SVG-D1, SVG-mid RPDA, 04/26/25
s/p MA with ramus PCI with thrombus embolizing into apical LAD s/p PCI, 11/2018
Status post left atrial appendage clipping with 35mm atrial clip 04/26/2025
-Old myocardial infarction
- Diabetes mellitus: Poorly controlled
- Essential hypertension
- Mixed hyperlipidemia
-GERD
- Gastroparesis
- Obesity
Echo 03/11/2025: LV: Lumason utilized to improve endocardial definition. EF 72%. RV: Normal, LA: Normal, RA: Normal, AV: Sclerotic. No AI. MV: No MR, TV: No TR
NOLBERTO 04/26/2025: EF 60% with no regional wall motion abnormality. Mild concentric LVH. No significant valvular disease.
Echo 04/28/2025: EF 60%. Right ventricle appears mildly dilated in limited views. Normal right ventricular systolic function. No significant valve disease. Small pericardial effusion.
Cardiac catheterization 04/20/2025: LM: NL. LAD: 95% ostial/proximal stenosis, 60% apical LAD stenosis. Ramus: Patent. Circumflex: Patent. RCA: Distal 50 to 60% stenosis, 50 to 60% stenosis near crux of the vessel. PDA 80 to 90% mid stenosis
RECOMMENDATIONS:
-Elective admission 04/26/2025 for multivessel coronary artery disease and CABG
- s/p CABG x 3 ( HART-LAD, SVG-D1, SVG-mid RPDA) plus left atrial appendage clipping with 35mm atrial clip on 04/26/25, Postop day 4 and doing well
-Postop hemoglobin 9.6.
- Cr improved to 1.1.
- Noted postop dizziness with hypotension previously on midodrine. Has been weaned off. Blood pressure now improved.
- EKG 04/27 with evidence of pericarditis. Continue low-dose colchicine. Repeat echo from 04/28/2025 shows small pericardial effusion without tamponade
- In sinus rhythm/sinus tach on review of telemetry. Amiodarone dose was increased to 400 mg [address] surgery 04/27. No A-fib noted
- continue post op care, OOB/IS
- Patient stable for discharge from cardiac standpoint. d/w nursing, patient, CT surgery.
Progress Note - Dragline Mechanic
Subjective
Date of Service: April 30, 2025
Patient seen and examined. Patient reports feeling tired otherwise feels well.
Objective
Labs:
04/30/25 09:38
04/30/25 09:38
Labs
Hgb 9.6 g/dL (13.0-18.0) L 04/30/25 09:38
Hct 28.7 % (39.0-52.0) L 04/30/25 09:38
Plt Count 246 10^3/uL (130-400) D 04/30/25 09:38
PT 16.7 Sec (11.4-14.6) H 04/26/25 14:23
INR 1.33 04/26/25 14:23
APTT 29.2 Sec (23.4-35.0) 04/26/25 14:23
Sodium 136 mmol/L (135-145) 04/30/25 09:38
Potassium 4.1 mmol/L (3.5-5.1) 04/30/25 09:38
BUN 28 mg/dl (9-20) H 04/30/25 09:38
Creatinine 1.1 mg/dL (0.7-1.3) 04/30/25 09:38
Glucose 121 mg/dl (70-99) H 04/30/25 09:38
Vital Signs and I&O:
Vital Signs
Temp Pulse Resp BP Pulse Ox
98.0 F 95 18 155/79 100
04/30/25 11:17 04/30/25 12:00 04/30/25 11:17 04/30/25 11:14 04/30/25 11:17
Vital Signs
Temp Pulse Resp BP Pulse Ox
98.0 F 95 18 155/79 100
04/30/25 11:17 04/30/25 12:00 04/30/25 11:17 04/30/25 11:14 04/30/25 11:17
Intake & Output
04/28/25 04/29/25 04/30/25 05/01/25
06:59 06:59 06:59 06:59
Intake Total 1000.5 / 1000.5 1764 / 1764 1210 / 1210
Output Total 785 / 785 700 / 700 900 / 900
Balance 215.5 / 215.5 1064 / 1064 310 / 310
Physical Exam
Physical Exam
GEN: No distress, awake, Ox3, lying in bed
HEENT: supple, anicteric, mmm
LUNGS: CTA, no wheezes/rales
CV: Reg, S1/S2, no murmur, rub or gallop
Chest: Sternotomy stable without rocking or clicking, incision well-approximated
ABD: soft, BS+, NT/ND
EXT: No edema, no clubbing or cyanosis
NEURO: Gross non-focal
SKIN: No rash, warm, dry, pink
[2025-04-30] MEDS: NSS IV (13:09)
[2025-04-30 13:38] LABS: Glucose - Point of Care 82 mg/dl (70-99)
[2025-04-30] MEDS: PATIENT'S OWN INSULIN PUMP 12.25 UNITS SC (14:16)
[2025-04-30] MEDS: PACERONE PO (16:07)
--- NOTE | 2025-04-30 16:39 | PTCARENOTE ---
Patient tolerated showering and was able to move his bowels. Seen by Dr. Humphries and is ok for discharge. Reviewed discharge instructions with the patient and his and he states his understanding. Reviewed follow up appointments, medications and
restrictions and he is aware. Patient discharged home with his with CT nurse services.
== END 2025-04-30 16:41 | disposition home or self-care (01) | DRG 236 ==
LOC: IVU 05:01
PROVIDERS: Nurse Practitioner; ADMITTING PHYSICIAN Thoracic Surgery (Cardiothoracic Vascular Surgery); CONSULT PHYSICIAN Internal Medicine; FAMILY PHYSICIAN Family Medicine
PROC: 02100Z9 Bypass Coronary Artery, One Artery from Left Internal Mammary, Open Approach (ICD-10-PCS; 2025-04-26)
PROC: 06BP4ZZ Excision of Right Saphenous Vein, Percutaneous Endoscopic Approach (ICD-10-PCS; 2025-04-26)
PROC: 0210093 Bypass Coronary Artery, One Artery from Coronary Artery with Autologous Venous Tissue, Open Approach (ICD-10-PCS; 2025-04-26)
PROC: B24BZZ4 Ultrasonography of Heart with Aorta, Transesophageal (ICD-10-PCS; 2025-04-26)
DX: I25.110 Atherosclerotic heart disease of native coronary artery with unstable angina pectoris (principal); D62 Acute posthemorrhagic anemia; J98.11 Atelectasis; I31.39 Other pericardial effusion (noninflammatory); I11.9 Hypertensive heart disease without heart failure; Z68.35 Body mass index [BMI] 35.0-35.9, adult; E66.812 Obesity, class 2; K21.9 Gastro-esophageal reflux disease without esophagitis; Z79.4 Long term (current) use of insulin; Z96.41 Presence of insulin pump (external) (internal); E10.43 Type 1 diabetes mellitus with diabetic autonomic (poly)neuropathy; E10.65 Type 1 diabetes mellitus with hyperglycemia; E86.1 Hypovolemia; N99.0 Postprocedural (acute) (chronic) kidney failure; R00.0 Tachycardia, unspecified; Z95.5 Presence of coronary angioplasty implant and graft; E78.00 Pure hypercholesterolemia, unspecified; Z79.82 Long term (current) use of aspirin; K31.84 Gastroparesis; Z79.02 Long term (current) use of antithrombotics/antiplatelets; Z79.899 Other long term (current) drug therapy
CPT/HCPCS: 36415; 71045; 71046; 80048; 80053; 81003; 81015; 82248; 82330; 82565; 82805; 82810; 82947; 82962; 83605; 83735; 84132; 84302; 84520; 85014; 85018; 85025; 85027; 85049; 85610; 85730; 86850; 86900; 86901; 86920; 87070; 93005; 93308; 93312; 93320; 93325; 94002; C1713; P9045; Q9950

== ENCOUNTER 2025-05-03 02:35 | Observation (INO) | payer OTHER, SELFPAY ==
[2025-05-02 21:10] VITALS: BP 144/70
[2025-05-02 21:39] VITALS: BP 155/66
[2025-05-02 22:00] VITALS: BP 143/63
[2025-05-02 22:02] VITALS: BMI 36.5
--- NOTE | 2025-05-02 22:03 | EDRN ---
Pt says last night when he was breathing in and out he could hear crackles. asked if pt was snoring. Pt says he woke up multiple times, unable to sleep, has been coughing up mucus all day. Pt unsure if this is normal after triple bypass on
the . Pt called nurses station upstairs and was advised to call doctor office which he did and was told to come to the ED for evaluation. Pt has chest discomfort from procedure and removing chest hair, nothing new. Pt has pains below shoulder
blades on both sides. Pt mostly concerned about wheezing and coughing up phlegm which is 'a little yellow.' Pt has been using incentive spirometer 'like 1000 times per day.' Pt also concerned he has not been urinating much. Lower legs have been
swollen since procedure and pt complains of neuropathy in his feet. No sob but pt says it hurts to breathe. No abd pain, n/v/d/c - last BM today. Pt adds when youngblood cath removed he still did not feel like he was able to urinate properly. No
fever/chills.
--- NOTE | 2025-05-02 22:41 | ED.GENMED ---
History of Present Illness
<MARY Gamboa - Last Filed: 05/03/25 01:18>
General
Chief Complaint: Breathing Problem
Source: patient
Exam Limitations: none
Time Seen by Provider: 05/02/25 22:24
Nursing documentation reviewed up to this point in time: agreed with
History of Present Illness
History of Present Illness:
49 yr old male status post CABG on Saturday presents to the ER for evaluation.
PT is s/p CABG 04/26 started with left sided back pain last night which has progressed today. He has increased pain with deep breath but the pain is constant. In discharge summary it was document the patient did have pericarditis status post
surgery he is on colchicine daily. He
He does report he has had weight gain since being initially admitted for his bypass surgery. He denies any significant lower extremity swelling.
He was prescribed pain medication for discharge however has not been wanting to take it.
Past History
<MARY Gamboa - Last Filed: 05/03/25 01:18>
Past History
ED Past Medical History: CAD, HTN and IDDM
ED Past Surgical History: Cardiac and Orthopedic
Social History
Tobacco: Non-smoker
Alcohol: Other
Drug: None
Personal:
Living: with family
Employment: Employed
Family History
Family History: Other
Phy Exam
<MARY Gamboa - Last Filed: 05/03/25 01:18>
General Physical Exam
General Presentation: no apparent distress
General Skin: warm and dry
General Habitus: normal
General Mental: alert
General Hydration: appears well hydrated
Cardiovascular Exam
Cardiovascular Exam: no murmur and tachycardia
Pulmonary Exam
Pulmonary Exam: lungs clear, no respiratory distress and other
Neurological Exam
Neurological Exam: alert and oriented x3
Musculoskeletal Exam
Musculoskeletal Exam: full ROM
Skin Exam
Skin Exam: normal color and warm/dry
Psychiatric Exam
Psychiatric Exam: normal mood/affect
Scores
<MARY Gamboa - Last Filed: 05/03/25 01:18>
Heart Failure Risk
Heart Failure Risk Score: Not Applicable
Course
<MARY Gamboa - Last Filed: 05/03/25 01:18>
Orders/Labs/Results
Orders:
Orders
05/02/25 21:15
EKG [Electrocardiogram (*1)] Urgent
Reason for Study: Tachycardia
EKG- Treatment ONCE
05/02/25 22:55
Cardiac Monitoring- Treatment ONCE
05/02/25 23:16
Complete Blood Count/With Diff Urgent
Comprehensive Metabolic Panel Urgent
Pro-BNP [NT-proBNP] Urgent
05/03/25 00:00
CT Chest Angio W/wo Iv Contras Urgent
Reason For Exam: left back pain s/p cabg
05/03/25 01:00
Albuterol Nebs [Ventolin Nebules] 2.5 mg INH R NOW STA
05/03/25 01:04
Furosemide [Lasix] 20 mg IV NOW STA
05/03/25 01:12
HYDROmorphone [Dilaudid] 0.5 mg IV NOW STA
05/03/25 01:54
CR Chest - 2 Views Urgent
Comment:
Reason For Exam: r/o plueral effusion
05/03/25 02:17
Admit/Transfer Patient As Directed
Co-Sign Provider:
Level of Care: Observation services
Assign to:: IVU
Physician / Group: Jordan Humphries
Diagnosis: Hypervolemia
Expected length of stay greater than two midnights?: No
I certify the patient meets the requirements for IP care: Yes
05/03/25 02:19
Code Status As Directed
Resuscitation Status: Full Code
05/03/25 04:25
Acetaminophen [Tylenol] 975 mg PO Q4HPRN PRN mild pain,headache,temp >101F
Cyclobenzaprine HCl [Flexeril] 5 mg PO Q8HPRN PRN muscle spasm
Oxycodone [Roxicodone] 5 mg PO Q4HPRN PRN severe pain
05/03/25 04:25
Activity As Directed
Activity Level: Ambulate
I&O [Intake/ Output] As Directed
Frequency: q12h
Sequential Compression Device [Pneumatic Compression Sleeves] As Directed
Type: Knee high
Vital Signs As Directed
Frequency: Per unit guidelines
Weight As Directed
Frequency: Daily
Rx Incentive Spirometry [RESP] Routine
Frequency: q1h while awake
DX Deep Vein Thrombosis Video Routine
05/03/25 Breakfast
2200 calorie (18 carb) Diabetic
At Your Request: Full Participation
05/03/25 08:00
Aspirin Chewable [Low Strength Aspirin] 81 mg PO DAILY
Clopidogrel Bisulfate [Plavix] 75 mg PO DAILY
Colchicine 0.3 mg PO DAILY
Cyanocobalamin [Vitamin B-12] 1,000 mcg PO DAILY
Dapagliflozin [Farxiga] 10 mg PO DAILY
Ezetimibe [Zetia] 10 mg PO DAILY
Gabapentin [Neurontin] 100 mg PO TID
Metoprolol Xl [Toprol Xl] 25 mg PO DAILY
05/03/25 18:00
Amlodipine [Norvasc] 2.5 mg PO QPM
Atorvastatin [Lipitor] 80 mg PO QPM
Pantoprazole [Protonix] 20 mg PO QPM
Abnormal Lab Results
05/02/25
23:16
RBC 3.12 L 10^6/uL
(4.70-6.10)
Hgb 9.5 L g/dL
(13.0-18.0)
Hct 29.4 L %
(39.0-52.0)
MCV 94.2 H fL
(80.0-94.0)
MCHC 32.3 L g/dL
(33.0-37.0)
Abs Immat Gran (auto) 0.1 H 10^3/uL
(0-0.05)
Absolute Monos (auto) 1.0 H 10^3/uL
(0.1-0.6)
Immature Gran % 1.0 H %
(0-0.5)
Monocytes % 10.6 H %
(1.7-9.3)
Glucose 133 H mg/dl
(70-99)
Calcium 8.0 L mg/dl
(8.4-10.2)
Total Protein 5.5 L g/dl
(6.3-8.2)
Albumin 2.9 L g/dl
(3.5-5.0)
05/02/25 23:16
05/02/25 23:16
Vital Signs
Initial and Last Documented VS:
Initial Vital Signs
Temp Pulse Resp BP Pulse Ox
97.7 F 96 18 144/70 99
05/02/25 21:10 05/02/25 21:10 05/02/25 21:10 05/02/25 21:10 05/02/25 21:10
Last Documented Vital Signs
Temp Pulse Resp BP Pulse Ox
98.2 F 88 20 107/61 94
05/03/25 11:05 05/03/25 11:30 05/03/25 11:05 05/03/25 11:05 05/03/25 11:05
Cut Out Machine Operator consulted with Physician
Cut Out Machine Operator consulted with physician?: Yes
Name of Physician Consulted: Noh
<Justus Noh, MD - Last Filed: 05/04/25 06:06>
Orders/Labs/Results
Orders:
Orders
05/02/25 21:15
EKG [Electrocardiogram (*1)] Urgent
Reason for Study: Tachycardia
EKG- Treatment ONCE
05/02/25 22:55
Cardiac Monitoring- Treatment ONCE
05/02/25 23:16
Complete Blood Count/With Diff Urgent
Comprehensive Metabolic Panel Urgent
Pro-BNP [NT-proBNP] Urgent
05/03/25 00:00
CT Chest Angio W/wo Iv Contras Urgent
Reason For Exam: left back pain s/p cabg
05/03/25 01:00
Albuterol Nebs [Ventolin Nebules] 2.5 mg INH R NOW STA
05/03/25 01:04
Furosemide [Lasix] 20 mg IV NOW STA
05/03/25 01:12
HYDROmorphone [Dilaudid] 0.5 mg IV NOW STA
05/03/25 01:54
CR Chest - 2 Views Urgent
Comment:
Reason For Exam: r/o plueral effusion
05/03/25 02:17
Admit/Transfer Patient As Directed
Co-Sign Provider:
Level of Care: Observation services
Assign to:: IVU
Physician / Group: Jordan Humphries
Diagnosis: Hypervolemia
Expected length of stay greater than two midnights?: No
I certify the patient meets the requirements for IP care: Yes
05/03/25 02:19
Code Status As Directed
Resuscitation Status: Full Code
05/03/25 04:25
Acetaminophen [Tylenol] 975 mg PO Q4HPRN PRN mild pain,headache,temp >101F
Cyclobenzaprine HCl [Flexeril] 5 mg PO Q8HPRN PRN muscle spasm
Oxycodone [Roxicodone] 5 mg PO Q4HPRN PRN severe pain
05/03/25 04:25
Activity As Directed
Activity Level: Ambulate
I&O [Intake/ Output] As Directed
Frequency: q12h
Sequential Compression Device [Pneumatic Compression Sleeves] As Directed
Type: Knee high
Vital Signs As Directed
Frequency: Per unit guidelines
Weight As Directed
Frequency: Daily
Rx Incentive Spirometry [RESP] Routine
Frequency: q1h while awake
DX Deep Vein Thrombosis Video Routine
05/03/25 Breakfast
2200 calorie (18 carb) Diabetic
At Your Request: Full Participation
05/03/25 08:00
Aspirin Chewable [Low Strength Aspirin] 81 mg PO DAILY
Clopidogrel Bisulfate [Plavix] 75 mg PO DAILY
Colchicine 0.3 mg PO DAILY
Cyanocobalamin [Vitamin B-12] 1,000 mcg PO DAILY
Dapagliflozin [Farxiga] 10 mg PO DAILY
Ezetimibe [Zetia] 10 mg PO DAILY
Gabapentin [Neurontin] 100 mg PO TID
Metoprolol Xl [Toprol Xl] 25 mg PO DAILY
05/03/25 18:00
Amlodipine [Norvasc] 2.5 mg PO QPM
Atorvastatin [Lipitor] 80 mg PO QPM
Pantoprazole [Protonix] 20 mg PO QPM
Abnormal Lab Results
05/02/25
23:16
RBC 3.12 L 10^6/uL
(4.70-6.10)
Hgb 9.5 L g/dL
(13.0-18.0)
Hct 29.4 L %
(39.0-52.0)
MCV 94.2 H fL
(80.0-94.0)
MCHC 32.3 L g/dL
(33.0-37.0)
Abs Immat Gran (auto) 0.1 H 10^3/uL
(0-0.05)
Absolute Monos (auto) 1.0 H 10^3/uL
(0.1-0.6)
Immature Gran % 1.0 H %
(0-0.5)
Monocytes % 10.6 H %
(1.7-9.3)
Glucose 133 H mg/dl
(70-99)
Calcium 8.0 L mg/dl
(8.4-10.2)
Total Protein 5.5 L g/dl
(6.3-8.2)
Albumin 2.9 L g/dl
(3.5-5.0)
05/02/25 23:16
05/02/25 23:16
Vital Signs
Initial and Last Documented VS:
Initial Vital Signs
Temp Pulse Resp BP Pulse Ox
97.7 F 96 18 144/70 99
05/02/25 21:10 05/02/25 21:10 05/02/25 21:10 05/02/25 21:10 05/02/25 21:10
Last Documented Vital Signs
Temp Pulse Resp BP Pulse Ox
98.2 F 88 20 107/61 94
05/03/25 11:05 05/03/25 11:30 05/03/25 11:05 05/03/25 11:05 05/03/25 11:05
<MARY Gamboa - Last Filed: 05/03/25 01:18>
MDM/Problems Addressed
Differential Diagnosis Includes:
Not limited to PE ,dissection, postsurgical pain, CHF/fluid overload
MDM/Problems Addressed:
As documented patient is a 49-year-old male status post bypass 6 days ago presents with left-sided posterior back pain since last night. On exam patient appears uncomfortable with taking a deep breath. He also has pain worse with being supine. He
is mildly tachycardic but not hypoxic lungs are clear no obvious swelling. He does report increased weight gain since the day of surgery. No obvious significant swelling on exam. Case reviewed ED physician case reviewed with Dr. Jordan Humphries
on-call CT surgery CTA of chest ordered at this time.
CT negative for PE/dissection. As discussed with ED physician with pain and weight gain will treat pain and order IV Lasix. recommend admission. d/c case w/ DR Humphries and CT surg LEILANI Emoryluis Tavares.
Chronic conditions affecting care:
recent CABG
<MARY Gamboa - Last Filed: 05/03/25 01:18>
*Radiology
Radiology exam reviewed: radiology read reviewed
*Pulse Oximetry
SaO2: 95
Oxygen Mode of Delivery: Room air
Patient hypoxic: yes
Comment: 92 % ra mildly
*EKG
Interpreted by ED Provider?: Yes
Interpretation: abnormal
Heart Rate: 95
Rate: normal
Rhythm: sinus
Ischemia: non-specific ST changes
*Critical Care Note
Total Time (30-74mins, 75-104mins- exclusive of procedures): Not Applicable
Data Reviewed
Review of Other/Old Records Reveals: Labs, Operative Reports and Discharge Summary
Source: patient and spouse
<MARY Gamboa - Last Filed: 05/03/25 01:18>
Patient Management
Discussion with other providers: Die Cutting Machine Operator (Dr Humphries )
ED Attending Note
<MARY Gamboa - Last Filed: 05/03/25 01:18>
-
Portions of this chart may have been created with voice recognition software.� Occasional wrong word or��sound alike� substitutions may have occurred due to the inherent limitations of voice recognition software.
<Justus Melendez MD - Last Filed: 05/04/25 06:06>
ED Attending Note
Patient seen and examined by attending physician: Yes
ED Attending Note:
Patient's status post CABG this week, discharged home 2 days ago, presents to ED secondary to sudden onset of back pain associated with shortness of breath, especially when laying down or with exertion over the past 24 hours. Denies chest pain.
Denies nausea, vomiting, or diarrhea. Denies fever or chills. Patient does report cough. In addition, patient states that he has gained approximately 20 pounds of weight over the past 1 week, with increased leg swelling. Per patient, there was
discussion about patient going home with water pills, but was never given prescription at time of discharge. Patient has been utilizing incentive spirometer at home
Physical Exam
General: mild distress, not acutely ill. afebrile
Head: nc/at. eomi
Neck: supple. normal range of motion
Heart: s1/s2 regular rate and rhythm
Lungs: mild respiratory distress. diminished breath sounds bilaterally
Abdomen: normal bowel sounds. not tender. n
Neuro: alert and oriented x 3. no focal neurological deficits
Skin: no rash
Psychiatric: well kept. interactive and cooperative
Extremities: LE b/l edema. no calf tenderness.
History and exam consistent with likely mild fluid overload with recent procedure. Patient will require IV diuresis. However, in light of recent procedure along with back pain, CT angiogram of the chest obtained.
CT angiogram chest report reviewed and discussed with on-call CT surgeon, Dr. Humphries. Patient will require further treatment, i.e. IV diuresis, as patient is symptomatic.
Discharge Plan
Departure
Patient Disposition: Admit
Date of Disposition: 05/03/25
Time of Disposition: 01:16
Admit to: Telemetry
Admit to doctor: Yandel
Presentation/result/management discussed w/ accepting MD/DO: cT surg DR Humphries
Patient with high blood pressure during this ER visit?: Yes
Condition: Fair
Covid-19: Not Applicable
Discharge Problem:
Post-operative pain, Fluid overload
Interventions
Interventions:
*Risk Screen - Suicide Last Done: 05/02/25 21:10
*General Assessment Last Done: 05/02/25 21:10
*Neglect/Abuse Screening Last Done: 05/02/25 21:10
*ED- Fall Risk Assessment Last Done: 05/02/25 21:10
*ED COVID-19 Vaccine History Last Done: 05/02/25 21:10
*ED Influenza Vaccine History Last Done: 05/02/25 21:10
*Nursing Disposition Last Done: 05/03/25 03:17
ED- Cardiac Assessment Last Done: 05/02/25 22:15
ED-Musculoskeletal Assessment Last Done: 05/02/25 22:15
ED- Pulmonary Assessment Last Done: 05/02/25 22:15
Discharge Date and Time
Discharge Date/Time: 05/03/25 03:17
[2025-05-02 23:00] VITALS: BP 108/59
[2025-05-02 23:33] LABS: Hematocrit 29.4 % (39.0-52.0); Hemoglobin 9.5 g/dL (13.0-18.0); Mean Corp Hgb Conc. 32.3 g/dL (33.0-37.0); Mean Corpuscular Volume 94.2 fL (80.0-94.0); Platelet Count 323 10^3/uL (130-400); Red Cell Dist. Width 13.0 % (11.5-14.5)
[2025-05-02 23:50] LABS: ALT (SGPT) < 10 U/L (0-50); AST (SGOT) 19 U/L (17-59); Albumin 2.9 g/dl (3.5-5.0); Alkaline Phosphatase 104 U/L (38-126); Blood Urea Nitrogen 19 mg/dl (9-20); Calcium 8.0 mg/dl (8.4-10.2); Carbon Dioxide 28 mmol/L (22-30); Chloride 106 mmol/L (98-107); Estimated Creatinine Clearance 113 ml/min; Glucose 133 mg/dl (70-99); Potassium 4.1 mmol/L (3.5-5.1); Sodium 137 mmol/L (135-145); Total Protein 5.5 g/dl (6.3-8.2); eGFR > 60.00
[2025-05-03] VITALS (7 sets, daily range): BP systolic 107–154; BP diastolic 61–72; BMI 36.4
[2025-05-03 00:05] LABS: Nucleated Red Blood Cells % 0.3 % (-)
[2025-05-03] MEDS: LASIX 20 MG IV ×2 (01:17→08:52)
[2025-05-03] MEDS: DILAUDID 0.5 MG IV (01:19)
[2025-05-03] MEDS: VENTOLIN NEBULES 2.5 MG INH (01:43)
--- NOTE | 2025-05-03 02:22 | EDRN ---
Pt says the breathing tx did not do anything for him. Pulse ox noted to drop intermittently into high 80's on room air. Pt denies sob but is tachypnic, speaks in full sentences. Pt placed on 2 lpm O2 via nasal cannula.
--- NOTE | 2025-05-03 02:26 | HPS.HSE ---
Family Physician
-
Family Physician: Sari Deleon
Chief Complaint
-
Increase Shortness when lying flat and mid section back pain
History of Present Illness
Patients is 49M with past medical history of -Multivessel CAD, [place], LVEF 60%, per�intraop�NOLBERTO, Hx�of CAD S/P PCI with stent to apical LAD and proximal RI, 11/30/2018, HTN,T1DM (A1C 7.7, on insulin pump), Gastroparesis, HLD, Class 2 obesity (BMI
35.1), GERD, S/P Jaw surgery, S/P throat nodule removal, S/P Right 5th metatarsal surgery�S/P Median sternotomy/ CABG x 3 (YANET to LAD, GSV to D1, GSV to mid-RPDA) by Dr. Humphries, 04/26/25. Patient camed to the ED on 05/02 for increase shortness
breath when lying flat, pain across mid back area, and 5lb weight gain.
Medical History
Past Medical History
Past Medical History: Reports CAD, HTN and IDDM
Past Surgical History: Reports Cardiac and Orthopedic (Right 5th metatarsal surgery)
Additional Past Surgical History:
S/P PCI with stent to apical LAD and proximal RI, 11/30/2018, CABG x 3 (YANET to LAD, GSV to D1, GSV to mid-RPDA) on 04/26/25
Social History
Tobacco: Non-smoker
Alcohol: Occasional
Drug: None
Personal: Single
Living: With Family
Employment: Employed
Family History
Family History: CAD (Father), Cancer (breast mother) and Hypertension
Allergies / Home Medications
Allergies reflects when Allergies were last updated in [facility].
Home Medications with original date entered in [facility]
Allergy/Medication List:
NKDA
Review of Systems
-
History Source: Patient
Constitutional: Reports Weight Gain and Sleep Disturbance
EENT: Reports Sore Throat
Respiratory: Reports Cough and Trouble Breathing
Cardiac: Reports Chest Pain
Abdomen/GI: Reports No Symptoms
: Reports No Symptoms
Musculoskeletal: Reports No Symptoms
Skin: Reports No Symptoms
Neurological: Reports No Symptoms
Endocrine: Reports No Symptoms
Hematologic/Lymphatic: Reports No Symptoms
Psych: Reports No Symptoms
Physical Exam
Vital Signs
Vital Signs
Temp Pulse Resp BP Pulse Ox
97.7 F 103 29 138/61 94
05/02/25 21:10 05/03/25 02:00 05/03/25 02:00 05/03/25 02:01 05/03/25 01:30
Physical Exam
General: Well Developed
HEENT: NormoCephalic
Respiratory: Rales
Cardiac: S1/S2 and Peripheral Edema (1+)
Breast: Deferred by me
GI: Soft and Non Tender
Rectal: Deferred by Provider
Genito-urinary: Deferred by me
Musculoskeletal: Normal Gait & Station
Skin: Warm and Dry
Neuro: Awake, Alert, Oriented and AO x 3
Psych: Calm
Laboratory Results
-
05/02/25 23:16
05/02/25 23:16
Laboratory Results
Total Bilirubin 0.6 mg/dl (0.2-1.3) 05/02/25 23:16
AST 19 U/L (17-59) 05/02/25 23:16
ALT < 10 U/L (0-50) 05/02/25 23:16
Alkaline Phosphatase 104 U/L (38-126) 05/02/25 23:16
Data Reviewed
-
CT Scan: Report Reviewed by me
Impression/Plan
-
IMPRESSION: Acute volume overload
PLAN:
1) CT = showed small to moderate bibasilar pleural effusion
2) Start Diuresis 20mg * 1 in ED
3) Albuterol Nebs for shortness of breath
4) Monitor strict I and O and daily weights
5) Bladder scan as needed
--- NOTE | 2025-05-03 03:19 | W.PN.CT ---
Addendum entered and electronically signed by MARY Wilkins 05/03/25 06:38:
Addition to Plan
1) Place patient on 20mg lasix * one week
2) Follow up BMP at the end of week
Original Note:
Today's Communication / Plan
-
PLAN:
1) Start Diuresis 20mg * 1 in ED
2) Albuterol Nebs for shortness of breath
3) Monitor strict I and O and daily weights
4) Bladder scan as needed
Assessment / Plan
-
-S/P Median sternotomy/ CABG x 3 (YANET to LAD, GSV to D1, GSV to mid-RPDA)/Endoscopic harvest/prep of RLE GSV/Open-endoscopic exploration of L�RA -not�utilized�d/t significant calcifications/ ELAA (35mm�AtriClip), by Dr. Humphries,
04/26/25,�pod#4�Arrived at ED complaining of�left sided back pain and increased shortness of breath. Noted areas of significant pericarditis status post-surgery he is on colchicine daily and weight up 5lbs since the 05/02 CT = showed small
to moderate bibasilar pleural effusion, Pro BNP =1270
-Multivessel CAD�
-[place]�
-LVEF 60%, per�intraop�NOLBERTO#3��
-Hx�of CAD S/P PCI with stent to apical LAD and proximal RI, 11/30/2018��
-HTN�
-T1DM (A1C 7.7, on insulin pump)�
-Gastroparesis��
-HLD�
-Class 2 obesity (BMI 35.1)�
-GERD�
-S/P Jaw surgery�
-S/P throat nodule removal�
-S/P Right 5th metatarsal surgery�
Subjective
-
Date of Service: May 03, 2025
Objective Data
-
Lab Results
05/02/25 23:16
05/02/25 23:16
Vital Signs
Vital Signs
Temp Pulse Resp BP Pulse Ox
97.7 F 105 25 113/63 94
05/02/25 21:10 05/03/25 03:00 05/03/25 03:00 05/03/25 03:00 05/03/25 03:00
CT Intake/Output/Weight
05/02/25 05/02/25 05/03/25
06:59 18:59 06:59
Intake Total 400 / 400
Output Total 625 / 625
Balance -225 / -225
SaO2: 94
Physical Exam
-
General: Awake, Oriented and AOx3
Cardiovascular: Regular rate & rhythm
Respiratory: Rales
Sternum: Stable
Incision: Clean, Dry and Intact
Extremities: Edema +2
[2025-05-03 03:47] LABS: Glucose - Point of Care 128 mg/dl (70-99)
--- NOTE | 2025-05-03 04:47 | PTCARENOTE ---
Received pt from ED, VSS, pt on room air 98%, IV lasix given down in the ED, pt voided in urinal. Pt type I diabetic, has his own insulin pump.
[2025-05-03 08:36] LABS: Glucose - Point of Care 94 mg/dl (70-99)
[2025-05-03] MEDS: FARXIGA 10 MG PO (08:53)
[2025-05-03] MEDS: TYLENOL 975 MG PO (08:53)
[2025-05-03] MEDS: PLAVIX 75 MG PO (08:53)
[2025-05-03] MEDS: LOW STRENGTH ASPIRIN 81 MG PO (08:53)
[2025-05-03] MEDS: FLEXERIL 5 MG PO (08:54)
[2025-05-03] MEDS: VITAMIN B-12 1000 MCG PO (08:55)
[2025-05-03] MEDS: NEURONTIN 100 MG PO (08:55)
[2025-05-03] MEDS: TOPROL XL 25 MG PO (08:56)
[2025-05-03] MEDS: COLCHICINE 0.3 MG PO (08:56)
[2025-05-03] MEDS: ZETIA 10 MG PO (08:57)
[2025-05-03] MEDS: ROXICODONE 5 MG PO ×2 (09:03→13:23)
--- NOTE | 2025-05-03 10:13 | CM ---
Reviewed chart. Met with Mr. Diaz to review discharge plans.He states he is feeling much better. He states prior to admission he resides with his spouse in a two story home with two steps to enter. He states he has a full flight of steps to get
to bedroom/full bathroom. He states he has a powder room on the first floor. He states prior to admission he was independent with ambulation and adls. He states his [id number] let him borrow her walker to use if needed. He states he has a
prescription plan and uses [facility]. We reviewed the Transitional Care Nurse coming out to see him when he is home. He states she did reach out to him today. The discharge plan is to return home with his spouse and children and a home
visit by the Transitional Care Nurse when medically stable.
[2025-05-03] MEDS: PATIENT'S OWN INSULIN PUMP 10.35 UNITS SC (10:27)
--- NOTE | 2025-05-03 10:48 | PTCARENOTE ---
Patient sitting oob in the chair this morning. Complaining of left mid back pain which radiates across his back, rated a 7/10. Medicated as per MAR with relief, states pain is 2/10 now. Ate breakfast and adjusted his insulin pump according to his
sliding scale.
--- NOTE | 2025-05-03 11:45 | W.DCSUMMARY ---
Discharge Summary
Discharge Data
Date of Admission: 05/03/25
Date of Discharge: 05/03/25
Total time spent discharging patient (in min): 25
-
Pending Results: No
Hospital Course
Primary care physician: Sari Deleon
Outpatient advisor consultant: Rj Lopez
Inpatient consultants: [facility], Pulmonary signal intelligence/electronic warfare, diabetes nurse practitioner
Procedures:
1. CABG, left atrial appendage clip
Primary Diagnosis:
1. multi-vessel coronary disease S/P PCI with stent to apical LAD and proximal RI, 11/30/2018
Secondary Diagnoses:
1. HTN
2. T1DM (A1C 7.7, on insulin pump)
3. Gastroparesis
4. HLD
5. Class 2 obesity (BMI 35.1)
6. GERD
7. S/P Jaw surgery
8. S/P throat nodule removal
9. S/P Right 5th metatarsal surgery
-Acute postop blood loss/Anemia (stable without blood transfusion)
-Acute postop atelectasis
-Acute postop hypovolemia with subsequent hypervolemia
-Suspected acute postop pericarditis on EKG, + rub
-Acute postop DAMON- improving
-Acute postop tachycardia
-Acute post-op pericarditis
Hospital Course:
49-year-old male who was recently admitted on 04/26/2025 for a CABG with Dr. Humphries was then discharged on 04/30. However he was readmitted on 05/03 with complaints of back pain and shortness of breath. Patient stated that at home he was not
taking his postop pain medications because it caused him to feel 'loopy'. Patient was educated to comply with pain regimen which he later expressed understanding. Patient was also diuresed with Lasix and will be discharged with a 1 week course of
20 mg of furosemide with a repeat BMP in 1 week.
Discharge Plan
-
Patient Disposition: Home (Routine Discharge)
Discharge Diagnosis/Procedures: shortness of breathe
Condition: Good
Diet: 2 Gram Sodium and Restrict fluids to 64 oz
Activity: No strenuous activity
Driving Restrictions: Not until seen by your Dr
Bathing Restrictions: OK to Shower
Other Services: Cardiac Rehab
Specialty Instructions: Weigh Daily- Call MD for wt gain/loss 3 lbs overnight/5 lbs in 1 week
Activity Restrictions/Additional Instructions:
ACTIVITY:
-No strenuous activity: no heavy lifting, pushing, pulling anything over 15 pounds for one month
-continue to use stairs as tolerated
DRIVING RESTRICTIONS:
-No driving for one month or until approved by your surgeon
WOUND CARE:
-Shower daily. Use soap & water.
-No lotions, creams or powders on incision area.
DIET:
-continue a low fat/low cholesterol diet.
-IF you are diabetic, continue carb controlled diet.
CARDIAC REHAB:
-Please make appointment to start in 5-6 weeks with your local hospital program. (See Cardiac Rehabilitation Discharge Booklet).
SPECIALTY INSTRUCTIONS:
-Weigh yourself daily. Call your physician for any weight gain/loss of 3 lbs overnight or 5 lbs in one week.
-REPORT any clicking noise or uneven appearance of your sternum to your surgeon immediately.
-If you smoke, you are instructed to quit. The [place] smoking hotline phone number is [phone]
Referrals:
Sari Deleon MD [Family Provider]
Additional Discharge Medication Instructions: Please note that your amlodipine dose and metoprolol dose has increased.
Please refer to your previous discharge paperwork for your appointment information
Prescriptions:
New
potassium chloride 10 mEq capsule, extended release
10 meq PO DAILY Qty: 7 0RF
furosemide [Lasix] 20 mg tablet
20 mg PO DAILY Qty: 7 0RF
Rx Instructions:
Take daily for 7 days, then stop
Continued
cyanocobalamin (vitamin B-12) 1,000 MCG tablet
1,000 mcg PO DAILY
ezetimibe 10 MG tablet
10 mg PO DAILY
Praluent Pen 75 mg/mL Pen Injector
75 mg SC Q14D Qty: 0
Mounjaro 10 mg/0.5 mL Pen Injector
10 mg SC TU
atorvastatin 80 MG tablet
80 mg PO QPM
aspirin 81 MG tablet,chewable
81 mg PO DAILY
coenzyme Q10 [CoQ-10] 100 mg Capsule
100 mg PO DAILY
pantoprazole 20 mg Tablet,Delayed Release (Dr/Ec)
20 mg PO QPM
Fiasp U-100 Insulin 100 unit/mL Solution
0 unit SC Q1H
Patient Comments:
pt has an insulin pump
clopidogrel [Plavix] 75 mg Tablet
75 mg PO DAILY
colchicine 0.6 mg Tablet
0.3 mg PO DAILY Qty: 30 0RF
gabapentin 100 mg Capsule
100 mg PO TID Qty: 30 0RF
oxycodone 5 mg Tablet
5 mg PO Q4HPRN PRN (Reason: severe pain) Qty: 10 0RF
dapagliflozin propanediol 10 mg Tablet
10 mg PO DAILY Qty: 30 2RF
cyclobenzaprine 10 mg Tablet
5 mg PO Q8HPRN PRN (Reason: muscle spasm) Qty: 10 0RF
acetaminophen 325 mg tablet
975 mg PO Q4HPRN PRN (Reason: mild pain,headache,temp >101F )
Changed
amlodipine 2.5 mg tablet
5 mg PO QPM Qty: 0 0RF
metoprolol succinate [Toprol XL] 25 mg tablet extended release 24 hr
50 mg PO DAILY Qty: 30 1RF
Discharge Orders:
Discharge Patient (As Directed); Ordered 05/03/25
Ordered By: Stella Funez
Care Plan Goals
Care Plan Goals:
Problem: Readiness for enhanced knowledge related to diagnosis and treatment plan
Goal: Understand your diagnosis and treatment plan needs, including medications if applicable.
Instructions: Know your diagnosis, underlying causes and treatment plan options, including medications if applicable. Consult with your health care team to learn about your diagnosis and treatment plan, including medications if applicable.
Discharge Date and Time
Print Language: [place]
[2025-05-03] MEDS: PATIENT'S OWN INSULIN PUMP 15.05 UNITS SC (13:24)
--- NOTE | 2025-05-03 14:27 | PTCARENOTE ---
Patient is cleared for discharge. Reviewed medication changes, fluid restrictions, weighing himself daily and reporting issues and he states his understanding. Patient medicated for pain prior to discharge and reinforced prn pain management. Patient
discharged home with his .
== END 2025-05-03 14:10 | disposition home or self-care (01) ==
LOC: IVU 02:35
PROVIDERS: Nurse Practitioner; ADMITTING PHYSICIAN Thoracic Surgery (Cardiothoracic Vascular Surgery); EMERGENCY PHYSICIAN Emergency Medicine; FAMILY PHYSICIAN Family Medicine
DX: I25.10 Atherosclerotic heart disease of native coronary artery without angina pectoris (principal); G89.18 Other acute postprocedural pain; E87.70 Fluid overload, unspecified; I10 Essential (primary) hypertension; D62 Acute posthemorrhagic anemia; E66.812 Obesity, class 2; E11.9 Type 2 diabetes mellitus without complications; K21.9 Gastro-esophageal reflux disease without esophagitis; E78.5 Hyperlipidemia, unspecified; E86.1 Hypovolemia; K31.84 Gastroparesis; N17.9 Acute kidney failure, unspecified; N99.0 Postprocedural (acute) (chronic) kidney failure; Z68.35 Body mass index [BMI] 35.0-35.9, adult; Z79.82 Long term (current) use of aspirin; Z79.84 Long term (current) use of oral hypoglycemic drugs; Z79.899 Other long term (current) drug therapy
CPT/HCPCS: 71046; 71275; 80053; 82962; 83880; 85025; 93005; 94640; 96374; 96375; 99285; G0378; Q9967

== ENCOUNTER 2025-05-06 17:06 | Observation (INO) | payer OTHER, SELFPAY ==
[2025-05-06] VITALS (13 sets, daily range): BP systolic 104–154; BP diastolic 51–85; PULSE 93–114; BMI 36.5; BMI 36.2
[2025-05-06 14:09] LABS: Hematocrit 34.8 % (39.0-52.0); Hemoglobin 10.9 g/dL (13.0-18.0); Mean Corp Hgb Conc. 31.3 g/dL (33.0-37.0); Mean Corpuscular Volume 99.1 fL (80.0-94.0); Nucleated Red Blood Cells % 0.2 % (-); Platelet Count 446 10^3/uL (130-400); Red Cell Dist. Width 13.4 % (11.5-14.5)
[2025-05-06 14:22] LABS: INR 1.03; PT 13.8 Sec (11.4-14.6)
[2025-05-06 14:23] LABS: ALT (SGPT) < 10 U/L (0-50); AST (SGOT) 22 U/L (17-59); Albumin 3.7 g/dl (3.5-5.0); Alkaline Phosphatase 113 U/L (38-126); Blood Urea Nitrogen 15 mg/dl (9-20); Calcium 8.9 mg/dl (8.4-10.2); Carbon Dioxide 29 mmol/L (22-30); Chloride 104 mmol/L (98-107); Estimated Creatinine Clearance 124 ml/min; Glucose 137 mg/dl (70-99); Potassium 4.1 mmol/L (3.5-5.1); Sodium 136 mmol/L (135-145); Total Protein 6.8 g/dl (6.3-8.2); eGFR > 60.00
[2025-05-06 14:27] LABS: COVID-19 Antigen Negative (Negative)
--- NOTE | 2025-05-06 14:27 | ED.GENMED ---
History of Present Illness
General
Chief Complaint: Dizziness
Time Seen by Provider: 05/06/25 13:09
History of Present Illness
History of Present Illness:
49-year-old male with history of hyperlipidemia, CAD status post CABG on 04/26, hypertension presenting to the emergency department for 2 syncopal episodes. Patient reports yesterday he was getting out of the car and had a syncopal episode. Notes
some associated lightheadedness, however essentially had no recollection of the event. After the fall, injured his right shoulder and the right flank. Today, when he woke up this morning, he went downstairs to grab his medication. Before he could
take the medication, had another syncopal episode with some prodromal lightheadedness, otherwise no acute. Denies ever having this issue in the past. Does report after recent CABG, was started on multiple new medications. Additionally has been
having some dyspnea, particularly with lying flat. Was seen in the hospital on 05/03 for the symptoms, admitted overnight, negative CT PE scan. Patient was given some diuretics and discharged home. He reports some cough. Denies any chest pain.
Denies weakness or numbness to his extremities. Denies additional acute medical complaints
Past History
Past History
ED Past Medical History: CAD, HTN and IDDM
ED Past Surgical History: Cardiac and Orthopedic
Social History
Tobacco: Non-smoker
Alcohol: Other
Drug: None
Personal:
Living: with family
Employment: Employed
Family History
Family History: Other
Phy Exam
Physical Exam
Physical Exam:
General: Well-appearing, no clinical signs of dehydration, nontoxic and in no acute distress
HEENT: protecting airway
Neck: appears supple
CV: Normal heart rate, regular rhythm
Resp: No accessory muscle use, no increased work of breathing, mild end expiratory wheezing
Abd: Soft and non-distended, no tenderness to palpation. Ecchymosis to the right flank with some generalized tenderness. No midline tenderness
Extremities: No deformities, no swelling. Limited range of motion to the right shoulder with generalized pain on palpation. No obvious deformity
Neuro: alert, no focal neurologic deficit
: deferred
Rectal: deferred
Psych: Normal affect
Skin: Intact
Course
Orders/Labs/Results
Orders:
Orders
05/06/25 12:08
EKG [Electrocardiogram (*1)] Urgent
Reason for Study: Vertigo / Dizzy
EKG- Treatment ONCE
05/06/25 13:46
CT Abd/pelvis W Iv Cont Urgent
Comment:
Reason For Exam: R-flank pain with bruising after fall
CR Chest - 2 Views Urgent
Comment:
Reason For Exam: SOB
Shoulder, Right 2 Views [CR Shoulder - Right Min 2 View] Urgent
Comment:
Reason For Exam: pain after all
05/06/25 13:47
Orthostatic VS- Treatment ONCE
05/06/25 13:54
CBC/With ESR Urgent
COVID-19 Antigen Urgent
Source: Nasal Swab
Comprehensive Metabolic Panel Urgent
Prothrombin Time Urgent
Influenza A+B Rapid Molecular Urgent
GILBERT Source: Nasal Swab
Specimen Description:
05/06/25 14:29
CT Head W/o Iv Contrast Urgent
Comment:
Reason For Exam: syncope, head strike
05/06/25 14:44
Orthostatic VS- Treatment ONCE
05/06/25 15:37
NT-proBNP Urgent
Abnormal Lab Results
05/06/25
13:54
RBC 3.51 L 10^6/uL
(4.70-6.10)
Hgb 10.9 L g/dL
(13.0-18.0)
Hct 34.8 L %
(39.0-52.0)
MCV 99.1 H fL
(80.0-94.0)
MCH 31.1 H pg
(27.0-31.0)
MCHC 31.3 L g/dL
(33.0-37.0)
Plt Count 446 H D 10^3/uL
(130-400)
Abs Immat Gran (auto) 0.1 H 10^3/uL
(0-0.05)
Immature Gran % 0.6 H %
(0-0.5)
ESR 77 H mm/hour
(0-20)
Glucose 137 H mg/dl
(70-99)
05/06/25 13:54
05/06/25 13:54
Vital Signs
Initial and Last Documented VS:
Initial Vital Signs
Temp Pulse Resp BP Pulse Ox
97.9 F 95 18 121/78 96
05/06/25 12:00 05/06/25 12:00 05/06/25 12:00 05/06/25 12:00 05/06/25 12:00
Last Documented Vital Signs
Temp Pulse Resp BP Pulse Ox
97.9 F 89 19 142/78 93
05/06/25 12:00 05/06/25 14:30 05/06/25 14:30 05/06/25 14:00 05/06/25 14:30
MDM/Problems Addressed
MDM/Problems Addressed:
49-year-old male with recent CABG on 04/26 presenting for syncope x 2 with subsequent right shoulder pain and right back pain, as well as persistent dyspnea. Vital signs on arrival are normal.
On exam patient is resting comfortably, no acute distress. Noted to have slightly low oxygenation, placed on supplemental O2 by nurse. Adequate air movement bilaterally to the lungs, however some slight end expiratory wheezing. Good possibly
related to patient's recent cardiac intervention. Lower suspicion for pneumonia, afebrile. Lower suspicion for significant pulmonary edema, recent overnight admission with diuresis. Will obtain chest x-ray imaging. Unclear etiology of patient's
syncopal episodes. EKG obtained, no change from prior, no arrhythmia. Will consult with cardiothoracic surgery. Regarding patient's injuries from the fall, unclear if patient struck his head so will obtain CT head. Will also obtain x-ray of the
shoulder, and CT abdomen pelvis to rule out acute intra-abdominal injury given flank ecchymosis.
15:50 - CT abdomen and pelvis without significant traumatic injury. CT head negative. Chest x-ray continues to show small pleural effusions. X-ray of the shoulder without any evidence of fracture or malalignment. Discussed with CT surgery, due
to 2 unprovoked syncopal episodes. Recommend admission for continued cardiac monitoring
*Pulse Oximetry
SaO2: 98
Nasal Cannula flow liters per minute: 2
Oxygen Mode of Delivery: Room air
Patient hypoxic: no
*EKG
Interpreted by ED Provider?: Yes
EKG Intrepretation Date: 05/06/25
EKG Intrepretation Time: 14:33
Interpretation: normal
Comparison EKG: no changes (05/02/25)
Heart Rate: 94
Rate: normal
Rhythm: sinus
[place]: left axis deviation
Interval: normal interval
QRS Pattern: right bundle branch block
Ischemia: no ischemia
*Critical Care Note
Total Time (30-74mins, 75-104mins- exclusive of procedures): Not Applicable
ED Attending Note
-
Portions of this chart may have been created with voice recognition software.� Occasional wrong word or��sound alike� substitutions may have occurred due to the inherent limitations of voice recognition software.
Discharge Plan
Departure
Prescriptions:
No Action
cyanocobalamin (vitamin B-12) 1,000 MCG tablet
1,000 mcg PO DAILY
ezetimibe 10 MG tablet
10 mg PO DAILY
Praluent Pen 75 mg/mL Pen Injector
75 mg SC Q14D Qty: 0
Mounjaro 10 mg/0.5 mL Pen Injector
10 mg SC TU
atorvastatin 80 MG tablet
80 mg PO QPM
aspirin 81 MG tablet,chewable
81 mg PO DAILY
coenzyme Q10 [CoQ-10] 100 mg Capsule
100 mg PO DAILY
pantoprazole 20 mg Tablet,Delayed Release (Dr/Ec)
20 mg PO QPM
Fiasp U-100 Insulin 100 unit/mL Solution
0 unit SC Q1H
Patient Comments:
pt has an insulin pump
clopidogrel [Plavix] 75 mg Tablet
75 mg PO DAILY
colchicine 0.6 mg Tablet
0.3 mg PO DAILY Qty: 30 0RF
gabapentin 100 mg Capsule
100 mg PO TID Qty: 30 0RF
oxycodone 5 mg Tablet
5 mg PO Q4HPRN PRN (Reason: severe pain) Qty: 10 0RF
dapagliflozin propanediol 10 mg Tablet
10 mg PO DAILY Qty: 30 2RF
cyclobenzaprine 10 mg Tablet
5 mg PO Q8HPRN PRN (Reason: muscle spasm) Qty: 10 0RF
acetaminophen 325 mg tablet
975 mg PO Q4HPRN PRN (Reason: mild pain,headache,temp >101F )
potassium chloride 10 mEq capsule, extended release
10 meq PO DAILY Qty: 7 0RF
amlodipine 2.5 mg tablet
5 mg PO QPM Qty: 0 0RF
metoprolol succinate [Toprol XL] 25 mg tablet extended release 24 hr
50 mg PO DAILY Qty: 30 1RF
furosemide [Lasix] 20 mg tablet
20 mg PO DAILY Qty: 7 0RF
Rx Instructions:
Take daily for 7 days, then stop
Referrals:
Sari Deleon MD [Family Provider]
Interventions
Interventions:
*Risk Screen - Suicide Last Done: 05/06/25 12:00
*General Assessment Last Done: 05/06/25 12:00
*ED COVID-19 Vaccine History Last Done: 05/06/25 12:00
*ED Influenza Vaccine History Last Done: 05/06/25 12:00
ED- Cardiac Assessment Last Done: 05/06/25 13:41
ED- Neurological Assessment Last Done: 05/06/25 13:41
ED Swallowing Screen Last Done: 05/06/25 13:42
Discharge Date and Time
Print Language: NEPALI
--- NOTE | 2025-05-06 15:50 | HPS.HSE ---
Family Physician
-
Family Physician: Sari Deleon
Chief Complaint
-
syncope
History of Present Illness
Mr. Enrike Diaz is a 49 yo man with hx CAD s/p PCI 11/2018, s/p CABG 04/26/2025 followed by brief admission 05/03 for acute heart failure s/p diuresis, essential HTN, T1DM, HLD, GERD presents to the ER after syncope x 2.
Patient had an episode of passing out yesterday when getting into this car. Prior to walking to his car he had been sitting for a while. He felt lightheaded prior to passing out and states he was out for about 15 seconds then woke up in a lot
pain, reporting he injured right shoulder and right flank post fall. This morning, he went downstairs to take his medication. When going back upstairs he felt very short of breath, again felt lightheaded and he had another episode of passing out.
He reports that this feeling of shortness of breath and wheezing has been on-going since prior to surgery and worse since. He was admitted for these complaints on 05/03. He had a CTA that was negative for central PE or dissection. He was given
Lasix but reports that is not urinating a lot in response. He has also cut down on how much he is drinking. He has no history of COPD, no smoking history and no diagnosis of asthma. He has never been prescribed inhalers in the past.
No fevers/chills. He has had increased central congestion since surgery. No abdominal pain, nausea/vomiting/diarrhea. He is eating and drinking OK. No significant LE swelling.
Medical History
Past Medical History
Past Medical History: Reports CAD, HTN and IDDM
Past Surgical History: Reports Cardiac and Orthopedic (Right 5th metatarsal surgery)
Additional Past Surgical History:
S/P PCI with stent to apical LAD and proximal RI, 11/30/2018, CABG x 3 (YANET to LAD, GSV to D1, GSV to mid-RPDA) on 04/26/25
Social History
Tobacco: Non-smoker
Alcohol: Occasional
Drug: None
Personal: Single
Living: With Family
Employment: Employed
Family History
Family History: CAD (Father), Cancer (breast mother) and Hypertension
Allergies / Home Medications
Allergies reflects when Allergies were last updated in [facility].
Home Medications with original date entered in [facility]
Allergy/Medication List:
Allergies
Allergy/AdvReac Type Severity Reaction Status Date / Time
pollen extracts Allergy seasonal Verified 05/06/25 12:06
allergies
Home Medications
cyanocobalamin (vitamin B-12) 1,000 mcg tablet 1,000 mcg PO DAILY Supplement 12/29/21
ezetimibe 10 mg tablet 10 mg PO DAILY High cholesterol 12/29/21
alirocumab 75 mg/mL subcutaneous pen injector (Praluent Pen) 75 mg SC Q14D High Cholesterol ##0 12/31/21
aspirin 81 mg chewable tablet 81 mg PO DAILY Blood Clot Prevention/Tx 03/10/25
atorvastatin 80 mg tablet 80 mg PO QPM High Cholesterol 03/10/25
tirzepatide 10 mg/0.5 mL subcutaneous pen injector (Mounjaro) 10 mg SC TU Diabetes 03/10/25
coenzyme Q10 100 mg capsule (CoQ-10) 100 mg PO DAILY Supplement 04/20/25
clopidogrel 75 mg tablet (Plavix) 75 mg PO DAILY Blood Clot Prevention/Tx 04/22/25
insulin aspart (niacinamide) (U-100) 100 unit/mL subcutaneous solution (Fiasp U-100 Insulin) 0 unit SC Q1H Diabetes 04/22/25
pantoprazole 20 mg tablet,delayed release 20 mg PO QPM Gastrointestinal Issue 04/22/25
colchicine 0.6 mg tablet 0.3 mg (1/2 x 0.6 mg) PO DAILY pericarditis #30 tabs 04/30/25
cyclobenzaprine 10 mg tablet 5 mg (1/2 x 10 mg) PO Q8HPRN PRN muscle spasm #10 tabs 04/30/25
dapagliflozin propanediol 10 mg tablet 10 mg PO DAILY Diabetes #30 tabs 04/30/25
gabapentin 100 mg capsule 100 mg PO TID post-op nerve pain #30 caps 04/30/25
oxycodone 5 mg tablet 5 mg PO Q4HPRN PRN severe pain #10 tabs 04/30/25
acetaminophen 325 mg tablet 975 mg PO Q4HPRN PRN mild pain,headache,temp >101F 05/02/25
amlodipine 2.5 mg tablet 5 mg (2 x 2.5 mg) PO QPM Blood Pressure #0 tabs 05/03/25
furosemide 20 mg tablet (Lasix) 20 mg PO DAILY Fluid retention/Swelling #7 tabs 05/03/25
metoprolol succinate 25 mg tablet,extended release 24 hr (Toprol XL) 50 mg (2 x 25 mg) PO DAILY Heart disease/condition #30 tabs 05/03/25
potassium chloride 10 mEq capsule,extended release 10 meq PO DAILY Electrolyte Repletion #7 caps 05/03/25
isosorbide mononitrate 30 mg tablet,extended release 24 hr 30 mg PO 05/06/25
*awaiting final med rec
Review of Systems
-
History Source: Patient
A 12 point ROS was completed and negative except as noted: Yes
Physical Exam
Vital Signs
Vital Signs
Temp Pulse Resp BP Pulse Ox
97.9 F 89 19 142/78 93
05/06/25 12:00 05/06/25 14:30 05/06/25 14:30 05/06/25 14:00 05/06/25 14:30
Physical Exam
General: No Apparent Distress
HEENT: PERRLA
Respiratory: Wheezes and Rhonchi
Cardiac: S1/S2 and Regular Rhythm
GI: Soft and Non Tender
Skin: Warm and Dry; No Rash
Neuro: AO x 3
Psych: Calm
Laboratory Results
-
05/06/25 13:54
05/06/25 13:54
Laboratory Results
PT 13.8 Sec (11.4-14.6) 05/06/25 13:54
INR 1.03 05/06/25 13:54
Total Bilirubin 0.9 mg/dl (0.2-1.3) 05/06/25 13:54
AST 22 U/L (17-59) 05/06/25 13:54
ALT < 10 U/L (0-50) 05/06/25 13:54
Alkaline Phosphatase 113 U/L (38-126) 05/06/25 13:54
Data Reviewed
-
Diagnostic Radiology: Report Reviewed by me
Lab Data: Labs Reviewed by me
Impression/Plan
-
Mr. Enrike Diaz is a 49 yo man with hx CAD s/p PCI 11/2018, s/p CABG 04/26/2025 followed by brief admission 05/03 for acute heart failure s/p diuresis, essential HTN, T1DM, HLD, GERD presents to the ER after syncope x 2.
Triage VS: T 97.9, P 95, RR 18, BP 121/78, SpO2 96%
+Positive Orthostatic VS: BP 133/70 --> 137/66 --> 104/65
LABS: WBC 8.9, Hg 10.9, PLT 446, Na 136, K+ 4.1, CO2 29, Cr 0.9, Glucose 137, liver enzymes WNL
Covid and Influenza Negative
Abdomen/Pelvis CT
IMPRESSION:
1. Subcutaneous soft tissue prominence within the right flank, which may represent mild soft tissue contusion given the history of trauma. No large subcutaneous hematoma, and no extravasation appreciated.
2. No solid organ injury.
3. Small bilateral pleural effusions, left greater than right. Trace pericardial effusion.
CXR
IMPRESSION:
1. Low inspiratory volumes.
2. Mild prominence of the interstitial compartment, which may be related to low inspiratory volumes or mild pulmonary vascular congestion.
3. Tiny bilateral pleural effusions.
Shoulder X-Ray
IMPRESSION:
No osseous injury appreciated.
HEAD CT
IMPRESSION:
No intracranial hemorrhage, and no displaced skull fracture appreciated.
Syncope
-orthostatic hypotension in the ER. Unclear if patient overloaded or dehydrated, given he also still has shortness of breath and wheezing
-admit to telemetry
-trend Troponin
-F/U TTE
-Cardiology consulted
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
-add on Magnesium
Shortness of Breath/Wheezing
-patient was admitted 05/03 with concern for volume overload. He reports that he has not had significant urination with Lasix. He continues to have wheezing on exam.
-trial Duoneb (can stop if no effect)
-follow up cardiology recommendations on if they feel this is cardiac wheezing and recommend diuresis
-F/U TTE results
CAD
-recent hx CABG 04/26/25
-continue ALEMITE OPERATOR cardiac regimen:
Asa 81mg PO QD
Plavix 75mg PO QD
Atorvastatin 80mg PO qhs
Farxiga 10mg PO QD
Metoprolol XL 50mg PO QD
DVT PPx SCD
*MED REC needs to be finalized
FULL CODE
[2025-05-06 16:26] LABS: Magnesium 2.1 mg/dl (1.6-2.3)
--- NOTE | 2025-05-06 16:40 | CON.CAR ---
Addendum entered and electronically signed by Chandler Diaz MD 05/06/25 17:17:
Patient seen and examined
Agree with LEA Silva's note assessment
Agree with LEA Silva's plan
Reviewed his recent 2 hospital visits this being the second after recent coronary artery bypass surgery as below April 26, 2025. Then had a visit for congestive heart failure placed on Lasix and now presents with 2 syncopal episodes going from
sitting to standing position and relatively low blood pressures. He was taking his losartan and Imdur at home which she was on precoronary bypass surgery and his discharge instructions had him on an alternative regimen. He has not been urinating
for the past day. His weight is stable to up 1 to 2 pounds since admission. A panoply of tests were ordered in the emergency department after his falls including a head CT which is normal, chest x-ray which has mild vascular prominence, CT scan
personally reviewed demonstrating small left pleural effusion with atelectasis subsegmental segmental and a small pericardial effusion. Echo confirmed a small pericardial effusion without apparent hemodynamic significance.
He did not feel arrhythmic symptoms prior to syncope. Importantly both occurred from sitting to standing position. One of the episodes was after taking a cocktail of muscle relaxant, narcotic, gabapentin, and metoprolol.
Exam:
Sternum intact
Nonfocal neurologically
JVP is 6
Cor regular no murmur
Echocardiogram reviewed
Chest x-ray personally reviewed
CT scans chest abdomen pelvis personally reviewed
Lungs are diminished left greater than right with mild diffuse end expiratory wheeze
Abdomen soft nontender positive bowel sounds
No extremity edema
Assessment:
- Suspected acute on chronic HFpEF
- orthostatic hypotension with syncope and fall
- Multivessel coronary artery disease involving proximal-mid LAD, large diagonal branch, and PDA
Coronary artery bypass surgery with HART-LAD, SVG-D1, SVG-mid RPDA, 04/26/25
s/p MA with ramus PCI with thrombus embolizing into apical LAD s/p PCI, 11/2018
Status post left atrial appendage clipping with 35mm atrial clip 04/26/2025- Old myocardial infarction
- Chronic right bundle branch block
- Diabetes mellitus: Poorly controlled
- Essential hypertension
- Mixed hyperlipidemia
- GERD
- Gastroparesis
- Obesity
Echo 04/28/2025: TDS, EF 65%, mildly dilated RV in limited views, small pericardial effusion
Plan:
- Mechanism of his syncope appears to be vasovagal or orthostatic hypotension in origin
- proBNP uptrending. Chest x-rays with tiny bilateral pleural effusions and evidence of mild pulmonary vascular congestion. With wheezing and requiring supplemental O2. Suspect degree of acute CHF. He reports limited improvement on p.o. Lasix 20
mg daily prescribed after overnight visit 05/02 - 05/03. I have no objection to giving Lasix once we have established normotension over sequential blood pressure measurements given his 2 syncopal episodes
- Wean supplemental oxygen as able
- Should BladderScan patient to ensure not retaining urine
- Okay to give trial of DuoNebs as well. Suspicion for pulmonary etiology lower on differential as he does not have known lung disease.
- Repeat echocardiogram, preliminary views with stable mild pericardial effusion
- EKG sinus rhythm with right bundle branch block, chronic. Trops pending
- Complicating matters, also with evidence of orthostatic hypotension. Orthostatic vital signs positive in ER today. He may require combination of midodrine and Lasix for now in postoperative setting with any doses of Lasix
- Unclear if he is taking his medications appropriately at home, evidenced as he was inappropriately taking his Imdur and losartan until this past Saturday although they were discontinued after his surgery. Will need to review med list with patient
extensively prior to discharge
- continue post op care
- Discussed with hospitalist. Discussed with CT surgery MASSAGE OPERATOR
-We will follow closely with you. If he continues to have orthostatic symptoms his volume exam is somewhat difficult and would be supportive of a right heart catheterization if symptoms continue
Original Note:
Consultation
Consultation Request
Date/Time Consultation Performed: 05/06/25
Requesting Provider: Dr. Victor
Performing Provider: Ophelia Silva PA-C for Dr. Diaz
Reason for Consultation: SOB, syncope vs fall
Medical History
-
Chief Complaint: SOB, syncope vs fall
History of Present Illness:
Patient is a 49-year-old male who underwent recent bypass surgery 04/26/2025. His postoperative course was complicated by orthostatic hypotension. He received midodrine during his admission, however was not discharged on midodrine as blood
pressure improved prior to discharge. He was noted to have a mild pericardial effusion without tamponade 04/28/2025 and was on low-dose colchicine. He was admitted overnight 05/02 - 05/03/2025 due to volume overload and received 2 doses of IV
Lasix. He was then discharged on p.o. Lasix 20 mg daily for 7 days. He reports he responded well to the IV Lasix, however since his discharge he has noted worsening urine output. He states today thus far he has only peed 1 time. Reports
orthopnea, dry cough and conversational dyspnea. Denies weight gain. Reports swelling in his legs is improving overall from surgery. He also reports ongoing issues with dizziness. When the CT transitional care nurse came to his home on Saturday she
realized he was still taking his losartan and Imdur which were supposed to be discontinued after surgery. He was advised to stop them. He reports then yesterday he went to his employer to get his check with his son. He states he walked out of the
car and last thing he remembers is pulling on the door handle, and then was on the ground and reports being in significant pain on right side of his body. He then reports early this morning he got up to urinate. He felt muscle pain and so took 2
Flexeril and 1 oxycodone. He reports shortly after this he felt wobbly and then fell. His helped him back into bed. When the transitional care nurse came today, she referred him to come in for further evaluation. Denies history of known
lung disease
PMH:
- Multivessel coronary artery disease involving proximal-mid LAD, large diagonal branch, and PDA
Coronary artery bypass surgery with HART-LAD, SVG-D1, SVG-mid RPDA, 04/26/25
s/p MA with ramus PCI with thrombus embolizing into apical LAD s/p PCI, 11/2018
Status post left atrial appendage clipping with 35mm atrial clip 04/26/2025
- Old myocardial infarction
- Diabetes mellitus: Poorly controlled
- Essential hypertension
- Mixed hyperlipidemia
- GERD
- Gastroparesis
- Obesity
Past Medical History
Past Medical History: Other (in HPI)
Social History
Tobacco: Non-Smoker
Alcohol: None
Personal:
Living: With Family
Employment: Employed
Allergies / Home Medications
Allergy/AdvReac Type Severity Reaction Status Date / Time
pollen extracts Allergy seasonal Verified 05/06/25 12:06
allergies
�Medication �Instructions �Recorded �Confirmed �Type
cyanocobalamin (vitamin B-12) 1,000 mcg PO DAILY Supplement 12/29/21 05/02/25 History
1,000 mcg tablet
ezetimibe 10 mg tablet 10 mg PO DAILY High cholesterol 12/29/21 05/06/25 History
alirocumab 75 mg/mL subcutaneous 75 mg SC Q14D High Cholesterol ##0 12/31/21 05/02/25 History
pen injector (Praluent Pen)
aspirin 81 mg chewable tablet 81 mg PO DAILY Blood Clot 03/10/25 05/06/25 History
Prevention/Tx
atorvastatin 80 mg tablet 80 mg PO QPM High Cholesterol 03/10/25 05/06/25 History
tirzepatide 10 mg/0.5 mL 10 mg SC TU Diabetes 03/10/25 05/06/25 History
subcutaneous pen injector
(Mounjaro)
coenzyme Q10 100 mg capsule 100 mg PO DAILY Supplement 04/20/25 05/02/25 History
(CoQ-10)
clopidogrel 75 mg tablet (Plavix) 75 mg PO DAILY Blood Clot 04/22/25 05/06/25 History
Prevention/Tx
insulin aspart (niacinamide) 0 unit SC Q1H Diabetes 04/22/25 05/02/25 History
(U-100) 100 unit/mL subcutaneous
solution (Fiasp U-100 Insulin)
pantoprazole 20 mg tablet,delayed 20 mg PO QPM Gastrointestinal Issue 04/22/25 05/06/25 History
release
colchicine 0.6 mg tablet 0.3 mg (1/2 x 0.6 mg) PO DAILY 04/30/25 05/02/25 Rx
pericarditis #30 tabs
cyclobenzaprine 10 mg tablet 5 mg (1/2 x 10 mg) PO Q8HPRN PRN 04/30/25 05/02/25 Rx
muscle spasm #10 tabs
dapagliflozin propanediol 10 mg 10 mg PO DAILY Diabetes #30 tabs 04/30/25 05/06/25 Rx
tablet
gabapentin 100 mg capsule 100 mg PO TID post-op nerve pain 04/30/25 05/02/25 Rx
#30 caps
oxycodone 5 mg tablet 5 mg PO Q4HPRN PRN severe pain #10 04/30/25 05/02/25 Rx
tabs
acetaminophen 325 mg tablet 975 mg PO Q4HPRN PRN mild 05/02/25 05/02/25 History
pain,headache,temp >101F
furosemide 20 mg tablet (Lasix) 20 mg PO DAILY Fluid 05/03/25 05/06/25 Rx
retention/Swelling #7 tabs
metoprolol succinate 25 mg 50 mg (2 x 25 mg) PO DAILY Heart 05/03/25 05/06/25 Rx
tablet,extended release 24 hr disease/condition #30 tabs
(Toprol XL)
potassium chloride 10 mEq 10 meq PO DAILY Electrolyte 05/03/25 05/06/25 Rx
capsule,extended release Repletion #7 caps
amlodipine 2.5 mg tablet 5 mg PO QPM Blood Pressure 05/06/25 05/06/25 History
isosorbide mononitrate 30 mg 30 mg PO 05/06/25 History
tablet,extended release 24 hr
Review of Systems
-
History Source: Patient
All other systems: Negative unless noted
Physical Exam
Vital Signs
Temp Pulse Resp BP Pulse Ox
97.9 F 102 24 104/63 99
05/06/25 12:00 05/06/25 15:45 05/06/25 15:45 05/06/25 15:43 05/06/25 15:45
Lab Results
05/06/25 13:54
05/06/25 13:54
Zsu-N-Gfnojpwxzvk Pept 1480 pg/ml 05/06/25 15:37
Physical Exam
General: No Apparent Distress, Comfortable and Other (On supplemental O2. With conversational dyspnea)
HEENT: Normocephalic, Anicteric and Moist Mucous Membranes
Respiratory: Wheezes and Non Labored Respirations
Cardiac: S1/S2 and Regular Rhythm
GI: Soft, Non Tender, Non Distended and Normal Bowel Sounds
Musculoskeletal: No Clubbing, No Cyanosis and No Edema
Skin: Warm and Dry
Neuro: AO x 3 and Other (Sternotomy incision well-healing)
Impression / Plan
-
Primary ice cream scooper: Dr. Robertson
Assessment:
- Suspected acute on chronic HFpEF
- orthostatic hypotension with syncope and fall
- Multivessel coronary artery disease involving proximal-mid LAD, large diagonal branch, and PDA
Coronary artery bypass surgery with HART-LAD, SVG-D1, SVG-mid RPDA, 04/26/25
s/p MA with ramus PCI with thrombus embolizing into apical LAD s/p PCI, 11/2018
Status post left atrial appendage clipping with 35mm atrial clip 04/26/2025
- Old myocardial infarction
- Chronic right bundle branch block
- Diabetes mellitus: Poorly controlled
- Essential hypertension
- Mixed hyperlipidemia
- GERD
- Gastroparesis
- Obesity
Echo 04/28/2025: TDS, EF 65%, mildly dilated RV in limited views, small pericardial effusion
Plan:
- Patient presents with an episode of syncope as well as a fall, and shortness of breath and wheezing with associated decreased urination
- proBNP uptrending. Chest x-rays with tiny bilateral pleural effusions and evidence of mild pulmonary vascular congestion. With wheezing and requiring supplemental O2. Suspect degree of acute CHF. He reports limited improvement on p.o. Lasix 20
mg daily prescribed after overnight visit 05/02 - 05/03. Would attempt giving 40 mg IV Lasix and assess response
- Wean supplemental oxygen as able
- Should BladderScan patient to ensure not retaining urine
- Okay to give trial of DuoNebs as well. Suspicion for pulmonary etiology lower on differential as he does not have known lung disease.
- Repeat echocardiogram, preliminary views with stable mild pericardial effusion
- EKG sinus rhythm with right bundle branch block, chronic. Trops pending
- Complicating matters, also with evidence of orthostatic hypotension. Orthostatic vital signs positive in ER today. He may require combination of midodrine and Lasix for now in postoperative setting
- Unclear if he is taking his medications appropriately at home, evidenced as he was inappropriately taking his Imdur and losartan until this past Saturday although they were discontinued after his surgery. Will need to review med list with patient
extensively prior to discharge
- continue post op care
- Discussed with hospitalist. Discussed with CT surgery MASSAGE OPERATOR
Data Reviewed
-
EKG: Tracing Personally Visualized and interpreted
Radiology: Report Reviewed by me
Medical Tests (Nuc Med, Echo etc): Report Reviewed by me
Labs: Labs Reviewed by me
Old Records: Reviewed
[2025-05-06] MEDS: DUONEB 3 ML INH ×2 (17:18→19:16)
--- NOTE | 2025-05-06 17:29 | EDCM ---
CM reviewed chart and met with pt bedside in ED. Lives with his and 3 children in 2 story home, 2 [address]. Has first floor half bath, full flight to second floor bedroom and full bath.
Independent in ADLs, personal care and ambulation at baseline. Does have walker in home but does not usually use it.
OBS form reviewed and signed, pt declined copy.
Confirms prescription coverage.
PCP: Sari Deleon
Pharmacy: [facility]
Anticipate discharge home, CM will continue to follow for all discharge planning needs.
[2025-05-06 17:50] LABS: Troponin I 0.266 ng/ml
[2025-05-06] MEDS: LIPITOR 80 MG PO (21:32)
[2025-05-06] MEDS: NEURONTIN 100 MG PO (21:32)
[2025-05-06] MEDS: PROTONIX 20 MG PO (21:32)
[2025-05-06] MEDS: TYLENOL 650 MG PO (21:32)
[2025-05-06 22:00] LABS: Glucose - Point of Care 193 mg/dl (70-99)
[2025-05-06 22:54] LABS: Troponin I 0.296 ng/ml
--- NOTE | 2025-05-06 23:55 | W.PN.UPDATE ---
Addendum entered and electronically signed by MARY Arriola 05/07/25 07:03:
Patient c/o Right shoulder pain, Mid chest pain referring to post op pain that's been there since CABG
pain relieved with morphine 1mg Iv
CT Surgery team requested to have patient transfer to IVU, Dr. Yandel sarabia.
order placed, RN made aware.
Original Note:
Update Note
Progress Note Update
RN reports Patient states 'I don't feel good and something is about to happen', anxious regarding troponin trending high. Also complaining dizzy and lightheaded starting up. BP 139/73 sitting, standing 143/76 HR 106
Patient seen and evaluated, AAO, anxious, Lungs wheezes throughout and rales left base. HR RRR. + BS, states he is not voiding enough.
reports SOB and cough
will order Lasix 20mg IVx1, duoneb x1
bladder scan 145
[2025-05-07] VITALS (16 sets, daily range): BP systolic 86–136; BP diastolic 58–77; PULSE 92–110; BMI 36.0
[2025-05-07] MEDS: LASIX 20 MG IV (00:05)
[2025-05-07] MEDS: TYLENOL 650 MG PO ×3 (01:48→21:07)
[2025-05-07] MEDS: ROXICODONE 5 MG PO (02:13)
[2025-05-07] MEDS: MORPHINE SULFATE 1 MG IV (03:31)
[2025-05-07 04:28] LABS: Blood Urea Nitrogen 13 mg/dl (9-20); Calcium 8.2 mg/dl (8.4-10.2); Carbon Dioxide 30 mmol/L (22-30); Chloride 105 mmol/L (98-107); Estimated Creatinine Clearance > 125 ml/min; Glucose 146 mg/dl (70-99); Magnesium 1.9 mg/dl (1.6-2.3); Potassium 3.8 mmol/L (3.5-5.1); Sodium 140 mmol/L (135-145); eGFR > 60.00
[2025-05-07 04:30] LABS: Hematocrit 26.3 % (39.0-52.0); Hemoglobin 8.6 g/dL (13.0-18.0); Mean Corp Hgb Conc. 32.7 g/dL (33.0-37.0); Mean Corpuscular Volume 93.6 fL (80.0-94.0); Platelet Count 401 10^3/uL (130-400); Red Cell Dist. Width 13.2 % (11.5-14.5)
[2025-05-07 04:43] LABS: Troponin I 0.287 ng/ml
[2025-05-07] MEDS: DUONEB 3 ML INH ×3 (07:13→19:31)
[2025-05-07 07:27] LABS: Glucose - Point of Care 145 mg/dl (70-99)
[2025-05-07] MEDS: PATIENT'S OWN INSULIN PUMP 14.7 UNITS SC (09:45)
[2025-05-07 09:46] LABS: Hematocrit 29.6 % (39.0-52.0); Hemoglobin 9.6 g/dL (13.0-18.0); Mean Corp Hgb Conc. 32.4 g/dL (33.0-37.0); Mean Corpuscular Volume 94.9 fL (80.0-94.0); Nucleated Red Blood Cells % 0 % (-); Platelet Count 479 10^3/uL (130-400); Red Cell Dist. Width 13.5 % (11.5-14.5)
[2025-05-07] MEDS: ZETIA 10 MG PO (10:39)
[2025-05-07] MEDS: LOW STRENGTH ASPIRIN 81 MG PO (10:39)
[2025-05-07] MEDS: PLAVIX 75 MG PO (10:39)
[2025-05-07] MEDS: FARXIGA 10 MG PO (10:40)
[2025-05-07] MEDS: COLCHICINE 0.3 MG PO (10:41)
[2025-05-07] MEDS: LASIX 40 MG PO (10:41)
[2025-05-07] MEDS: NEURONTIN 100 MG PO ×3 (10:43→21:07)
[2025-05-07] MEDS: FLUSH (NSS) 1 FLUSH IV (10:44)
--- NOTE | 2025-05-07 11:34 | CM ---
Chart reviewed. Patient is independent of ADLS, lives with his in a 2 [address], [facility], has a RW at home if needed. Plan is for the patient to return home. CM to follow
--- NOTE | 2025-05-07 12:16 | PTCARENOTE ---
Received patient from the 4th floor this morning. Sitting oob in the chair, stood for orthostatic VS, while standing he felt dizzy with SBP 88. Patient seen by Dr. Mota, medicated with midodrine PO now as ordered, held toprol as instructed for
now. Resting in bed with HR of 90, on 2L NC 94%, RA pulse ox 88%. Call piper in reach, reinforced need to call for assistance when getting oob.
[2025-05-07 14:41] LABS: Glucose - Point of Care 91 mg/dl (70-99)
--- NOTE | 2025-05-07 14:48 | PTCARENOTE ---
Patient sitting at the side of the bed, BP 136/72-95. Stood at the bedside 122/59-117, did not feel dizzy and was able to amb down the meredith. Ambulated down to room 2251 and back. BP after walk 88/77-120, stated he felt 'jittery'. TT to CT surgery FLANGE MACHINE OPERATOR
and cardiology re: toprol. Ok to give med now that midodrine started.
[2025-05-07] MEDS: PATIENT'S OWN INSULIN PUMP 10.75 UNITS SC (14:53)
[2025-05-07] MEDS: TOPROL XL 50 MG PO (14:53)
--- NOTE | 2025-05-07 18:08 | PTCARENOTE ---
Patient stated at 1600 that he felt 'lousy' after the last pill I gave him which was toprol xl. VSS, lying in bed, at the bedside. Dosage of toprol xl decreased for tomorrow. Patient only voided 250ml this shift, bladder scanned for 368ml but
did not have any urge to urinate. Sat at the side of the bed and voided 300 ml clear joelle urine.
[2025-05-07] MEDS: LIPITOR 80 MG PO (18:29)
[2025-05-07] MEDS: PROTONIX 20 MG PO (18:31)
[2025-05-07] MEDS: PATIENT'S OWN INSULIN PUMP 15 UNITS SC (18:32)
[2025-05-07] MEDS: SENOKOT-S 1 TABLET PO (18:34)
--- NOTE | 2025-05-07 19:09 | W.PN.CARDCBS ---
Today's Communication / Plan
-
Add midodrine
Monitor orthostatic vitals
Repeat echocardiogram next week to reassess pericardial effusion
Impression / Plan
-
Primary stringer up soldering machine: Dr. Robertson
Assessment:
- Suspected acute on chronic HFpEF
- orthostatic hypotension with syncope and fall
- Multivessel coronary artery disease involving proximal-mid LAD, large diagonal branch, and PDA
Coronary artery bypass surgery with HART-LAD, SVG-D1, SVG-mid RPDA, 04/26/25
s/p [place] with ramus PCI with thrombus embolizing into apical LAD s/p PCI, 11/2018
Status post left atrial appendage clipping with 35mm atrial clip 04/26/2025
- Old myocardial infarction
- Chronic right bundle branch block
- Diabetes mellitus: Poorly controlled
- Essential hypertension
- Mixed hyperlipidemia
- GERD
- Gastroparesis
- Obesity
Echo 04/28/2025: TDS, EF 65%, mildly dilated RV in limited views, small pericardial effusion
Plan:
Orthostatic hypotension with syncope and fall
-Patient reports the symptoms proceeded bypass surgery and he may have a degree of autonomic dysfunction
-Started midodrine 2.5 mg TID and will uptitrate.
-Orthostatic vitals
-Hemoglobin 9.6 g/dL. WBC 8.9. BUN and creatinine 13/0.8. Sodium 140, potassium 3.8.
-CT of the head 05/06/2025 with no acute hemorrhage or fracture.
-Influenza screen negative
-Limited echocardiogram with normal LV size and systolic function, EF 59% with small to moderate pericardial effusion without hemodynamic significance.
-Consider repeat echocardiogram next week to reassess pericardial effusion
-Volume overload postop with preserved ejection fraction
-proBNP 1480
-Will change Lasix to 40 mg IV daily. Received 20 mg IV this morning with outpatient oral dose Lasix 40 mg
-Continue Farxiga 10 mg daily
Multivessel coronary artery disease involving proximal-mid LAD, large diagonal branch, and PDA s/p HART-LAD, SVG-D1, SVG-mid RPDA and left atrial appendage clipping with 35mm atrial clip 04/26/2025
-EKG sinus rhythm with right bundle branch block, chronic.
-Troponins flat at 0.266�I do not feel that this represents an acute coronary syndrome
-Patient had been on Imdur prior to bypass surgery and is unclear if he was taking Imdur following discharge. No plans to discharge patient on Imdur
-Continue aspirin/Plavix.
-Continue lipid-lowering therapy with atorvastatin and ezetimibe
-Continue colchicine for postop pericarditis
Discussed with CT surgery DOPE SPRAYER
Progress Note - Real Time Operator
Subjective
Date of Service: May 07, 2025
Seen and examined lying recumbent in the chair. Denies dizziness while lying back. No chest pain or pressure. No shortness of breath.
Objective
Labs:
05/07/25 09:30
05/07/25 03:51
Labs
Hgb 9.6 g/dL (13.0-18.0) L 05/07/25 09:30
Hct 29.6 % (39.0-52.0) L 05/07/25 09:30
Plt Count 479 10^3/uL (130-400) H 05/07/25 09:30
PT 13.8 Sec (11.4-14.6) 05/06/25 13:54
INR 1.03 05/06/25 13:54
Sodium 140 mmol/L (135-145) 05/07/25 03:51
Potassium 3.8 mmol/L (3.5-5.1) 05/07/25 03:51
BUN 13 mg/dl (9-20) 05/07/25 03:51
Creatinine 0.8 mg/dL (0.7-1.3) 05/07/25 03:51
Glucose 146 mg/dl (70-99) H 05/07/25 03:51
Troponins
05/06/25 05/06/25 05/07/25
17:17 22:22 03:51
Troponin I 0.266 H* 0.296 H* 0.287 H*
Vital Signs and I&O:
Vital Signs
Temp Pulse Resp BP Pulse Ox
98.7 F 102 20 122/60 96
05/07/25 18:34 05/07/25 18:32 05/07/25 18:34 05/07/25 18:32 05/07/25 18:34
Vital Signs
Temp Pulse Resp BP Pulse Ox
98.7 F 102 20 122/60 96
05/07/25 18:34 05/07/25 18:32 05/07/25 18:34 05/07/25 18:32 05/07/25 18:34
Intake & Output
05/05/25 05/06/25 05/07/25 05/08/25
06:59 06:59 06:59 06:59
Intake Total 480 / 480 720 / 720
Output Total 1100 / 1100 550 / 550
Balance -620 / -620 170 / 170
Physical Exam
Physical Exam
GEN: No distress, awake, Ox3, lying in bed
HEENT: supple, anicteric, mmm
LUNGS: CTA, no wheezes/rales
CV: Reg, S1/S2, no murmur, rub or gallop
Chest: Sternotomy stable without rocking or clicking, incision well-approximated
ABD: soft, BS+, NT/ND
EXT: No edema, no clubbing or cyanosis
NEURO: Gross non-focal
[2025-05-07] MEDS: PACERONE 200 MG PO (21:27)
[2025-05-07 21:32] LABS: Glucose - Point of Care 103 mg/dl (70-99)
[2025-05-07] MEDS: PATIENT'S OWN INSULIN PUMP 0.45 UNITS SC (21:33)
[2025-05-08] VITALS (14 sets, daily range): BP systolic 101–136; BP diastolic 50–82; PULSE 87–96; BMI 35.9
[2025-05-08] MEDS: TYLENOL 1000 MG PO (01:27)
--- NOTE | 2025-05-08 01:33 | PTCARENOTE ---
assumed care of patient at the change of shift. AAOx3. at the bedside. SR/ST on [id number]. bp stable. Amio dose ordered per CV PA- see mar. denies any lightheadedness/dizziness while laying in bed. states when he gets up he will get dizzy.
educated patient to not get oob without RN-verbalized understanding. patients only complaint at this time is R shoulder pain- tylenol given. patient requesting oxy and flexeril doses as well. updated Ed Kayce CV PA. will hold off for now d/t
patients orthostatic blood pressures. increased tylenol dose to 1000mg. ice pack applied. urinating yellow urine in the BSU. surgical incisions FISHING LINE WINDING MACHINE OPERATOR/intact. call piper within reach. makes needs known.
[2025-05-08 04:12] LABS: Hematocrit 26.9 % (39.0-52.0); Hemoglobin 8.8 g/dL (13.0-18.0); Mean Corp Hgb Conc. 32.7 g/dL (33.0-37.0); Mean Corpuscular Volume 95.4 fL (80.0-94.0); Platelet Count 414 10^3/uL (130-400); Red Cell Dist. Width 13.3 % (11.5-14.5)
[2025-05-08 04:33] LABS: Blood Urea Nitrogen 14 mg/dl (9-20); Calcium 8.4 mg/dl (8.4-10.2); Carbon Dioxide 31 mmol/L (22-30); Chloride 104 mmol/L (98-107); Estimated Creatinine Clearance 110 ml/min; Glucose 132 mg/dl (70-99); Magnesium 2.1 mg/dl (1.6-2.3); Potassium 4.0 mmol/L (3.5-5.1); Sodium 137 mmol/L (135-145); eGFR > 60.00
[2025-05-08] MEDS: CALCIUM GLUCONATE 130 MG IV (05:07)
[2025-05-08] MEDS: DUONEB 3 ML INH ×3 (07:07→19:26)
[2025-05-08 08:02] LABS: Glucose - Point of Care 134 mg/dl (70-99)
--- NOTE | 2025-05-08 08:27 | W.PN.CT ---
Today's Communication / Plan
-
Plan:
-BP has been soft
-Decreased Toprol XL from 50 mg Qdaily to 12.5 mg Qdaily
-On midodrine
-Ionize ca+ is low, will replete to help augment BP
-Holding Narcotics/muscle relaxants
-OOB into chair as tolerated
-Likely d/c in 1-2 days
Assessment / Plan
-
-S/P Median sternotomy/ CABG x 3 (YANET to LAD, GSV to D1, GSV to mid-RPDA)/Endoscopic harvest/prep of RLE GSV/Open-endoscopic exploration of L�RA -not�utilized�d/t significant calcifications/ ELAA (35mm�AtriClip), by Dr. Humphries,
04/26/25,�pod#11�Arrived at ED complaining of�left sided back pain and increased shortness of breath. Noted areas of significant pericarditis status post-surgery he is on colchicine daily and weight up 5lbs since the 05/02 CT = showed small
to moderate bibasilar pleural effusion, Pro BNP =1270. Discharged home 05/03/25. Presents back to [facility] on 07/06 with c/o 2 syncopal episodes
-Syncopal episodes x 2
-Orthopnea
-Multivessel CAD�
-USA�
-LVEF 60%, per�intraop�NOLBERTO#3��
-Hx�of CAD S/P PCI with stent to apical LAD and proximal RI, 11/30/2018��
-HTN�
-T1DM (A1C 7.7, on insulin pump)�
-Gastroparesis��
-HLD�
-Class 2 obesity (BMI 35.1)�
-GERD�
-S/P Jaw surgery�
-S/P throat nodule removal�
-S/P Right 5th metatarsal surgery�
Discussed patient care with: Cardiology, Nursing, Respiratory Therapy, Pharmacy and Care Team
Subjective
-
Date of Service: May 08, 2025
Pt c/o mild incisional pain, otherwise feels well
Objective Data
-
Lab Results
05/08/25 03:58
05/08/25 03:58
PT 13.8 Sec (11.4-14.6) 05/06/25 13:54
INR 1.03 05/06/25 13:54
Vital Signs
Vital Signs
Temp Pulse Resp BP Pulse Ox
97.9 F 93 18 108/58 94
05/08/25 07:40 05/08/25 07:40 05/08/25 07:40 05/08/25 06:29 05/08/25 07:40
CT Intake/Output/Weight
05/07/25 05/08/25 05/08/25
18:59 06:59 18:59
Intake Total 720 / 720
Output Total 550 / 1025 475 / 1025
Balance 170 / -305 -475 / -305
SaO2: 94 (RA)
Physical Exam
-
General: Awake, Oriented and AOx3
Cardiovascular: Regular rate & rhythm, No Murmurs and No Gallop
Respiratory: Decreased Breath Sounds
Sternum: Stable
Incision: Clean, Dry, Intact and Dressing Intact
Extremities: Other (+trace edema )
Data Reviewed
-
Lab Results: Results Reviewed
Medications: Active Meds Reviewed
Chest X-Ray: Report Reviewed and Image Reviewed
ECG: Report Reviewed and Image Reviewed
[2025-05-08] MEDS: FARXIGA 10 MG PO (09:01)
[2025-05-08] MEDS: PATIENT'S OWN INSULIN PUMP 20.85 UNITS SC (09:01)
[2025-05-08] MEDS: PLAVIX 75 MG PO (09:01)
[2025-05-08] MEDS: LOW STRENGTH ASPIRIN 81 MG PO (09:01)
[2025-05-08] MEDS: TOPROL XL 12.5 MG PO (09:02)
[2025-05-08] MEDS: ZETIA 10 MG PO (09:02)
[2025-05-08] MEDS: COLCHICINE 0.3 MG PO (09:02)
--- NOTE | 2025-05-08 09:17 | W.PN.CARDCBS ---
Addendum entered and electronically signed by Rj Lopez MD 05/08/25 10:56:
I saw and examined the patient.
The SENIOR EXECUTIVE COMPENSATION ANALYST or PA's note was reviewed and I agree with the note.
Comment: General: Well developed, well nourished in NAD.
Neck: Supple, no JVD, HJR, carotids +2 B/L, no bruits bilaterally.
Heart: Non displaced PMI, RRR, no murmurs, No S3, S4, no rubs.
Lungs: Scattered rhonchi
Extremities: No clubbing, cyanosis or edema bilaterally.
Neuro: Grossly nonfocal, awake, alert and oriented x3.
He feels better but not ready to go home by his viewpoint. Blood pressure improved with midodrine. Recheck echocardiogram per CT surgery to reassess pericardial effusion.
Original Note:
Today's Communication / Plan
-
Not currently ordered diuretics, but is below discharge weight from 05/03/2025
BP improving with midodrine
Impression / Plan
-
Primary telecommunication engineer: Dr. Robertson
Impression:
Suspected acute on chronic HFpEF
orthostatic hypotension with syncope and fall
CAD
s/p AK with ramus PCI with thrombus embolizing into apical LAD s/p PCI, 11/2018
MV CAD by cardiac cath 04/20/2025
CAD s/p CABG with HART-LAD, SVG-D1, SVG-mid RPDA, 04/26/25
Status post left atrial appendage clipping with 35mm atrial clip 04/26/2025
Chronic right bundle branch block
Diabetes mellitus: Poorly controlled
Essential hypertension
Mixed hyperlipidemia
GERD
Gastroparesis
Obesity
Postoperative pericarditis
Small to moderate pericardial effusion without tamponade by echo 05/06/2025
Accidental medication noncompliance
Echo 04/28/2025: TDS, EF 65%, mildly dilated RV in limited views, small pericardial effusion
Echo 05/06/2025: EF 59%, normal LV size and function, no WMA, small to moderate pericardial effusion without apparent hemodynamic significance
Plan:
-Patient admitted with syncope, fall and orthostasis in the setting of acute on chronic HFpEF and possible medication noncompliance and cardiology was consulted.
-Patient had positive orthostatic VS on admission and was started on midodrine 2.5 mg TID this admission. Updated orthostatic VS from 05/08/2025 were reviewed by me and supine BP 133/82 with HR 87 and then standing BP 108/58 with HR 96, but less
symptomatic compared to admission and no recurrence of LOC
-New to midodrine 2.5 mg TID this admission
-Outpatient dose of amlodipine 5 mg daily is on hold
-Outpatient dose of Toprol XL 50 mg daily was reduced to 12.5 mg daily
-Limited echocardiogram with normal LV size and systolic function, EF 59% with small to moderate pericardial effusion without hemodynamic significance. Consider repeat echocardiogram next week to reassess pericardial effusion
-There was concern for acute on chronic HFpEF on admission and patient was given Lasix 20 mg IV x 1 in the ER on 05/06/2025 and then outpatient dose of Lasix 40 mg PO daily was scheduled to continue, but then with worsening hypotension his Lasix PO
dose was held. Patient weighed 253 lbs at last discharge on 05/03/2025 and currently weighs 250 lbs on my review of VS 05/08/2025.
-Continue Farxiga 10 mg daily
-Troponin was 0.266 on admission and then peaked at 0.296. ECG without acute change and EF preserved without WMA on echo. Will manage as a nonischemic myocardial injury troponin elevation.
-Patient was supposed to stop taking his Imdur at recent discharge, but was still taking it, this has been stopped and clearly communicated with patient.
-Patient was also supposed to have stopped taking his losartan, but was apparently still taking that as well and again it is been stopped and communicated with the patient.
-Outpatient doses of aspirin and Plavix has been continued following recent CABG
-Outpatient doses of atorvastatin 80 mg daily and Zetia 10 mg daily have been continued for hyperlipidemia
-Outpatient dose of colchicine 0.3 mg daily has been continued for postoperative pericarditis
HPI: Patient is a 49-year-old male who underwent recent bypass surgery 04/26/2025. His postoperative course was complicated by orthostatic hypotension. He received midodrine during his admission, however was not discharged on midodrine as blood
pressure improved prior to discharge. He was noted to have a mild pericardial effusion without tamponade 04/28/2025 and was on low-dose colchicine. He was admitted overnight 05/02 - 05/03/2025 due to volume overload and received 2 doses of IV
Lasix. He was then discharged on p.o. Lasix 20 mg daily for 7 days. He reports he responded well to the IV Lasix, however since his discharge he has noted worsening urine output. He states today thus far he has only peed 1 time. Reports
orthopnea, dry cough and conversational dyspnea. Denies weight gain. Reports swelling in his legs is improving overall from surgery. He also reports ongoing issues with dizziness. When the CT transitional care nurse came to his home on Saturday she
realized he was still taking his losartan and Imdur which were supposed to be discontinued after surgery. He was advised to stop them. He reports then yesterday he went to his employer to get his check with his son. He states he walked out of the
car and last thing he remembers is pulling on the door handle, and then was on the ground and reports being in significant pain on right side of his body. He then reports early this morning he got up to urinate. He felt muscle pain and so took 2
Flexeril and 1 oxycodone. He reports shortly after this he felt wobbly and then fell. His helped him back into bed. When the transitional care nurse came today, she referred him to come in for further evaluation. Denies history of known
lung disease
Progress Note - Manufacturing Business Analyst
Subjective
Date of Service: May 08, 2025
He is feeling better
Objective
Labs:
05/08/25 03:58
05/08/25 03:58
Labs
Hgb 8.8 g/dL (13.0-18.0) L 05/08/25 03:58
Hct 26.9 % (39.0-52.0) L 05/08/25 03:58
Plt Count 414 10^3/uL (130-400) H 05/08/25 03:58
PT 13.8 Sec (11.4-14.6) 05/06/25 13:54
INR 1.03 05/06/25 13:54
Sodium 137 mmol/L (135-145) 05/08/25 03:58
Potassium 4.0 mmol/L (3.5-5.1) 05/08/25 03:58
BUN 14 mg/dl (9-) 05/08/25 03:58
Creatinine 1.0 mg/dL (0.7-1.3) 05/08/25 03:58
Glucose 132 mg/dl (70-99) H 05/08/25 03:58
Troponins
05/06/25 05/06/25 05/07/25
17:17 22:22 03:51
Troponin I 0.266 H* 0.296 H* 0.287 H*
Vital Signs and I&O:
Vital Signs
Temp Pulse Resp BP Pulse Ox
97.9 F 93 18 108/58 94
05/08/25 07:40 05/08/25 07:40 05/08/25 07:40 05/08/25 06:29 05/08/25 08:33
Vital Signs
Temp Pulse Resp BP Pulse Ox
97.9 F 93 18 108/58 94
05/08/25 07:40 05/08/25 07:40 05/08/25 07:40 05/08/25 06:29 05/08/25 08:33
Intake & Output
05/06/25 05/07/25 05/08/25 05/09/25
06:59 06:59 06:59 06:59
Intake Total 480 / 480 720 / 720
Output Total 1100 / 1100 1025 / 1025
Balance -620 / -620 -305 / -305
Physical Exam
Physical Exam
GEN: AAO x 3
LUNGS: RA. No wheeze
CV: SR on telemetry.
--- NOTE | 2025-05-08 12:28 | PTCARENOTE ---
Assumed care of the pt @ 0700. Pt is AAOx3 SR/ST BBB on the monitor. Pt ambulating in the meredith this morning. Pt has own insulin pump to administer insulin. Call piper within reach. POC discussed with pt
--- NOTE | 2025-05-08 12:31 | PTCARENOTE ---
Pt was ordered Echo for today on-call tech was notified by nursing supervisor film processing. Tech up at bedside to do Echo.
[2025-05-08] MEDS: MIRALAX 17 GRAMS PO (12:46)
[2025-05-08 12:54] LABS: Glucose - Point of Care 88 mg/dl (70-99)
[2025-05-08] MEDS: PATIENT'S OWN INSULIN PUMP 13.75 UNITS SC (13:30)
[2025-05-08] MEDS: PROTONIX 20 MG PO (17:08)
[2025-05-08] MEDS: LIPITOR 80 MG PO (17:08)
[2025-05-08 18:35] LABS: Glucose - Point of Care 164 mg/dl (70-99)
[2025-05-08] MEDS: PATIENT'S OWN INSULIN PUMP 13.65 UNITS SC (19:13)
[2025-05-08] MEDS: PACERONE 200 MG PO (20:29)
[2025-05-08 22:26] LABS: Glucose - Point of Care 156 mg/dl (70-99)
[2025-05-08] MEDS: PATIENT'S OWN INSULIN PUMP 0.3 UNITS SC (22:29)
--- NOTE | 2025-05-09 00:56 | W.PN.CT ---
Today's Communication / Plan
-
Plan:
-BP has been soft but improving
-Repeat echo yesterday 05/08/25 showed small to moderate pericardial effusion, same as echo from 05/06/25, EF 55-60%
-On ASA/Plavix @ home
-Increased Toprol to 25 mg QD
-Midodrine placed on PRN
-Ionize ca++ is low, will replete to help augment BP
-Holding Narcotics/muscle relaxants
-OOB into chair as tolerated
-Likely d/c home today
Assessment / Plan
-
-S/P Median sternotomy/ CABG x 3 (YANET to LAD, GSV to D1, GSV to mid-RPDA)/Endoscopic harvest/prep of RLE GSV/Open-endoscopic exploration of L�RA -not�utilized�d/t significant calcifications/ ELAA (35mm�AtriClip), by Dr. Humphries,
04/26/25,�pod#12�Arrived at ED complaining of�left sided back pain and increased shortness of breath. Noted areas of significant pericarditis status post-surgery he is on colchicine daily and weight up 5lbs since the 05/02 CT = showed small
to moderate bibasilar pleural effusion, Pro BNP =1270. Discharged home 05/03/25. Presents back to [facility] on 07/06 with c/o 2 syncopal episodes
-Syncopal episodes x 2
-Orthopnea
-Multivessel CAD�
-USA�
-LVEF 60%, per�intraop�NOLBERTO#3��
-Hx�of CAD S/P PCI with stent to apical LAD and proximal RI, 11/30/2018��
-HTN�
-T1DM (A1C 7.7, on insulin pump)�
-Gastroparesis��
-HLD�
-Class 2 obesity (BMI 35.1)�
-GERD�
-S/P Jaw surgery�
-S/P throat nodule removal�
-S/P Right 5th metatarsal surgery�
Discussed patient care with: Cardiology, Nursing, Respiratory Therapy, Pharmacy and Care Team
Subjective
-
Date of Service: May 09, 2025
Objective Data
-
Lab Results
05/08/25 03:58
PT 13.8 Sec (11.4-14.6) 05/06/25 13:54
INR 1.03 05/06/25 13:54
Vital Signs
Vital Signs
Temp Pulse Resp BP Pulse Ox
98.0 F 100 20 128/79 98
05/08/25 22:47 05/08/25 22:23 05/08/25 22:47 05/08/25 22:23 05/08/25 22:47
CT Intake/Output/Weight
05/08/25 05/08/25 05/09/25
06:59 18:59 06:59
Intake Total 240 / 240
Output Total 475 / 1025
Balance -475 / -305 240 / 240
SaO2: 98
Physical Exam
-
General: Awake, Oriented and AOx3
Cardiovascular: Regular rate & rhythm, No Murmurs and No Gallop
Respiratory: Decreased Breath Sounds (at bases, otherwise clear)
Sternum: Stable
Incision: Clean, Dry, Intact and Dressing Intact
Extremities: Other (+trace edema)
Data Reviewed
-
Lab Results: Results Reviewed
Medications: Active Meds Reviewed
Chest X-Ray: Report Reviewed and Image Reviewed
ECG: Report Reviewed and Image Reviewed
[2025-05-09 01:14] LABS: Glucose - Point of Care 141 mg/dl (70-99)
--- NOTE | 2025-05-09 01:16 | PTCARENOTE ---
Assumed care of patient at change of shift. Tele monitor shows NSR-ST w/ BBBC. HR in the 90-110's at rest. Denies any pain or discomfort. Patient denies any dizziness thus far on this shift. Currently laying in bed.
Patient rang call piper complaining that his dexcom alerted him about his blood sugar being in the 40's. This RN spot checked patients sugar with the accu-check machine which confirmed a BS result of 141. Pt aware, POC ongoing. Fall risk and sternal
precautions maintained. Call piper within reach.
[2025-05-09 04:08] VITALS: BP 132/66
[2025-05-09 04:15] VITALS: BMI 35.8
[2025-05-09 04:29] LABS: Hematocrit 28.1 % (39.0-52.0); Hemoglobin 9.1 g/dL (13.0-18.0); Mean Corp Hgb Conc. 32.4 g/dL (33.0-37.0); Mean Corpuscular Volume 94.0 fL (80.0-94.0); Platelet Count 432 10^3/uL (130-400); Red Cell Dist. Width 13.4 % (11.5-14.5)
[2025-05-09 04:58] LABS: Blood Urea Nitrogen 13 mg/dl (9-20); Calcium 8.6 mg/dl (8.4-10.2); Carbon Dioxide 29 mmol/L (22-30); Chloride 105 mmol/L (98-107); Estimated Creatinine Clearance 110 ml/min; Glucose 150 mg/dl (70-99); Magnesium 2.1 mg/dl (1.6-2.3); Potassium 4.5 mmol/L (3.5-5.1); Sodium 136 mmol/L (135-145); eGFR > 60.00
[2025-05-09 07:35] VITALS: BP 135/75
--- NOTE | 2025-05-09 07:41 | PTCARENOTE ---
Assumed care of the pt @0700. Pt is AAOx3 SR/ST on the monitor VSS denies cp or dizziness. POC discussed with pt. Call piper within reach.
[2025-05-09] MEDS: DUONEB 3 ML INH (07:56)
[2025-05-09 08:10] LABS: Glucose - Point of Care 144 mg/dl (70-99)
[2025-05-09] MEDS: CALCIUM GLUCONATE 130 MG IV (08:13)
[2025-05-09] MEDS: ZETIA 10 MG PO (08:14)
[2025-05-09] MEDS: PLAVIX 75 MG PO (08:14)
[2025-05-09] MEDS: FARXIGA 10 MG PO (08:14)
[2025-05-09] MEDS: COLCHICINE 0.3 MG PO (08:14)
[2025-05-09] MEDS: LOW STRENGTH ASPIRIN 81 MG PO (08:14)
[2025-05-09] MEDS: TOPROL XL 25 MG PO (08:15)
--- NOTE | 2025-05-09 09:01 | W.PN.CARDCBS ---
Today's Communication / Plan
-
Stable cardiology status for discharge on midodrine
Discussed with CT surgery PA
Impression / Plan
-
Primary geometry professor: Dr. Robertson
Impression:
Suspected acute on chronic HFpEF
orthostatic hypotension with syncope and fall
CAD
s/p CA with ramus PCI with thrombus embolizing into apical LAD s/p PCI, 11/2018
MV CAD by cardiac cath 04/20/2025
CAD s/p CABG with HART-LAD, SVG-D1, SVG-mid RPDA, 04/26/25
Status post left atrial appendage clipping with 35mm atrial clip 04/26/2025
Chronic right bundle branch block
Diabetes mellitus: Poorly controlled
Essential hypertension
Mixed hyperlipidemia
GERD
Gastroparesis
Obesity
Postoperative pericarditis
Small to moderate pericardial effusion without tamponade by echo 05/06/2025/unchanged on 05/08/2025
Accidental medication noncompliance
Troponin elevation/nonischemic myocardial injury
Echo 04/28/2025: TDS, EF 65%, mildly dilated RV in limited views, small pericardial effusion
Echo 05/06/2025: EF 59%, normal LV size and function, no WMA, small to moderate pericardial effusion without apparent hemodynamic significance
Plan:
He seems improved on midodrine
Echocardiogram on 05/03/2025 was unchanged
Toprol has been increased for tachycardia
Stable cardiology status for discharge but await CT surgery input
HPI: Patient is a 49-year-old male who underwent recent bypass surgery 04/26/2025. His postoperative course was complicated by orthostatic hypotension. He received midodrine during his admission, however was not discharged on midodrine as blood
pressure improved prior to discharge. He was noted to have a mild pericardial effusion without tamponade 04/28/2025 and was on low-dose colchicine. He was admitted overnight 05/02 - 05/03/2025 due to volume overload and received 2 doses of IV
Lasix. He was then discharged on p.o. Lasix 20 mg daily for 7 days. He reports he responded well to the IV Lasix, however since his discharge he has noted worsening urine output. He states today thus far he has only peed 1 time. Reports
orthopnea, dry cough and conversational dyspnea. Denies weight gain. Reports swelling in his legs is improving overall from surgery. He also reports ongoing issues with dizziness. When the CT transitional care nurse came to his home on Saturday she
realized he was still taking his losartan and Imdur which were supposed to be discontinued after surgery. He was advised to stop them. He reports then yesterday he went to his employer to get his check with his son. He states he walked out of the
car and last thing he remembers is pulling on the door handle, and then was on the ground and reports being in significant pain on right side of his body. He then reports early this morning he got up to urinate. He felt muscle pain and so took 2
Flexeril and 1 oxycodone. He reports shortly after this he felt wobbly and then fell. His helped him back into bed. When the transitional care nurse came today, she referred him to come in for further evaluation. Denies history of known
lung disease
Progress Note - Network Operations Project Manager
Subjective
Date of Service: May 09, 2025
No complaints
Objective
Labs:
05/09/25 04:14
05/09/25 04:14
Labs
Hgb 9.1 g/dL (13.0-18.0) L 05/09/25 04:14
Hct 28.1 % (39.0-52.0) L 05/09/25 04:14
Plt Count 432 10^3/uL (130-400) H 05/09/25 04:14
PT 13.8 Sec (11.4-14.6) 05/06/25 13:54
INR 1.03 05/06/25 13:54
Sodium 136 mmol/L (135-145) 05/09/25 04:14
Potassium 4.5 mmol/L (3.5-5.1) 05/09/25 04:14
BUN 13 mg/dl (9-20) 05/09/25 04:14
Creatinine 1.0 mg/dL (0.7-1.3) 05/09/25 04:14
Glucose 150 mg/dl (70-99) H 05/09/25 04:14
Troponins
05/06/25 05/06/25 05/07/25
17:17 22:22 03:51
Troponin I 0.266 H* 0.296 H* 0.287 H*
Vital Signs and I&O:
Vital Signs
Temp Pulse Resp BP Pulse Ox
97.9 F 99 18 135/75 94
05/09/25 07:40 05/09/25 08:15 05/09/25 07:57 05/09/25 08:15 05/09/25 07:40
Vital Signs
Temp Pulse Resp BP Pulse Ox
97.9 F 99 18 135/75 94
05/09/25 07:40 05/09/25 08:15 05/09/25 07:57 05/09/25 08:15 05/09/25 07:40
Intake & Output
05/07/25 05/08/25 05/09/25 05/10/25
06:59 06:59 06:59 06:59
Intake Total 480 / 480 720 / 720 600 / 600
Output Total 1100 / 1100 1025 / 1025
Balance -620 / -620 -305 / -305 600 / 600
Physical Exam
Physical Exam
General: Well developed, well nourished in NAD.
Neck: Supple, no JVD, HJR, carotids +2 B/L, no bruits bilaterally.
Heart: Non displaced PMI, RRR, no murmurs, No S3, S4, no rubs.
Lungs: Scattered rhonchi
Extremities: No clubbing, cyanosis or edema bilaterally.
Neuro: Grossly nonfocal, awake, alert and oriented x3.
[2025-05-09] MEDS: PATIENT'S OWN INSULIN PUMP 12.35 UNITS SC (10:24)
--- NOTE | 2025-05-09 11:34 | W.DCSUMMARY ---
Discharge Summary
Discharge Data
Date of Admission: 05/06/25
Date of Discharge: 05/09/25
-
Pending Results: No
Hospital Course
Primary care physician: Sari Deleon
Outpatient electromechanical assembly technician: Rj Lopez
Inpatient consultants: [facility] Cardiology
Procedures:
1. CT head, abdomen and pelvis
2. R shoulder x-ray
3. Echocardiogram
Primary Diagnosis:
1. orthostatic hypotension with syncope/fall
Secondary Diagnoses:
1.
HPI: Patient is a 49-year-old male who underwent recent CABG x 3 (HART-LAD, SVG-diag, SVG-PDA) and left atrial appendage clip (#35mm clip) on 04/26/[address] Humphries on 04/26/2025. His postoperative course was complicated by orthostatic
hypotension. He received midodrine during his admission, however was not discharged on midodrine as blood pressure improved prior to discharge. He was noted to have a mild pericardial effusion without tamponade 04/28/2025 and was on low-dose
colchicine. He was admitted overnight 05/02 - 05/03/2025 due to volume overload and received 2 doses of IV Lasix. He was then discharged on p.o. Lasix 20 mg daily for 7 days. He reports he responded well to the IV Lasix, however since his
discharge he has noted worsening urine output. When the CT transitional care nurse came to his home on Saturday she realized he was still taking his losartan and Imdur which were supposed to be discontinued after surgery. He was advised to stop
them.
Patient reports a syncopal event, without prodrome, on 05/05/25 when walking to his car after picking up a check from his employer. He thinks he hit his right shoulder. On 05/06/25, he took 2 Flexeril and 1 oxycodone for the pain. He reports
shortly after this he felt wobbly and then fell. His helped him back into bed. Upon assessment by the transitional care nurse today, patient was referred to the ER for further evaluation.
Hospital course: BS 135 on home monitor review and no hypoglycemic events. CT head negative for intracranial hemorrhage, and no displaced skull fracture. Right shoulder x-ray negative for osseous injury. CXR reported tiny bilateral pleural
effusions and evidence of mild pulmonary vascular congestion. BNP 1480/troponin 0.26>0.29>0.28. TTE reported no significant pericardial effusion and no regional wall motion abnormalities. Patient was admitted under observation status. Toprol dose
was decreased to 12.5mg daily and Midodrine three times daily added. No dysrhythmias noted on telemetry surveillance. Narcotics and muscle relaxers discontinued without noted increase in pain per patient. Blood pressure remained stable in the 120s
with rest and activity. Repeat TTE on 05/08 reported E of 55-60% and small to moderate pericardial effusion without evidence of hemodynamic compromise (unchanged from 05/06/25). On 05/09, Toprol XL was increased to 25mg daily for HR 90s-100s with
activity and Midodrine 5mg ID will continue on discharge. Patient ambulating in room/hallway without dizziness. Patient instructed to take ONLY the medications listed on discharge paperwork (pts mother and his spouse present for conversation). He
was instructed to take daily weight (as NOT discharged on diuretic) and blood pressure/heart rate (owns a BP machine) three times daily and report trends to CT office on Saturday. CT office alerted to discharge. Electronic script sent to pharmacy
for Midodrine/Toprol however, patient states pharmacy is closed on Sundays. Patient has Toprol XL 50mg tablets that are already split so he will take 0.5 tab daily. Written script for Midodrine 5mg TID (#60 tbs) given to patient. Labs stable on day
of discharge: Hb 9.1, Creatinine 1.0, K+ 4.5
Home medication changes:
STOP: Imdur, Lasix, Potassium, Amlodipine
CHANGE: Toprol XL 50mg decrease to 25mg daily
Discharge Plan
-
Patient Disposition: Home (Routine Discharge)
Discharge Diagnosis/Procedures: syncope
Condition: Good
Diet: Low Cholesterol, Low Sodium and Diabetic, Carb Controlled
Activity: No strenuous activity
Driving Restrictions: Not until seen by your Dr
Bathing Restrictions: OK to Shower
Other Services: Cardiac Rehab
Specialty Instructions: Weigh Daily- Call MD for wt gain/loss 3 lbs overnight/5 lbs in 1 week
Referrals:
Sari Deleon MD [Family Provider]
Additional Discharge Medication Instructions: monitor and record blood pressure and heart rate trends 3 times daily and report readings to CT office on 05/12. Weight self daily and report weight gain of 3 pound increase in a day or 5 pound increase
during a week.
Prescriptions:
New
midodrine 2.5 mg Tablet
2.5 mg PO TID@0800,1300,1800 Qty: 30 0RF
metoprolol succinate 25 mg Tablet Extended Release 24 Hr
25 mg PO DAILY Qty: 30 2RF
Continued
cyanocobalamin (vitamin B-12) 1,000 MCG tablet
1,000 mcg PO DAILY
ezetimibe 10 MG tablet
10 mg PO DAILY
Praluent Pen 75 mg/mL Pen Injector
75 mg SC Q14D Qty: 0
Mounjaro 10 mg/0.5 mL Pen Injector
10 mg SC TU
atorvastatin 80 MG tablet
80 mg PO QPM
aspirin 81 MG tablet,chewable
81 mg PO DAILY
coenzyme Q10 [CoQ-10] 100 mg Capsule
100 mg PO DAILY
pantoprazole 20 mg Tablet,Delayed Release (Dr/Ec)
20 mg PO QPM
Fiasp U-100 Insulin 100 unit/mL Solution
0 unit SC Q1H
Patient Comments:
pt has an insulin pump
clopidogrel [Plavix] 75 mg Tablet
75 mg PO DAILY
colchicine 0.6 mg Tablet
0.3 mg PO DAILY Qty: 30 0RF
gabapentin 100 mg Capsule
100 mg PO TID Qty: 30 0RF
oxycodone 5 mg Tablet
5 mg PO Q4HPRN PRN (Reason: severe pain) Qty: 10 0RF
dapagliflozin propanediol 10 mg Tablet
10 mg PO DAILY Qty: 30 2RF
cyclobenzaprine 10 mg Tablet
5 mg PO Q8HPRN PRN (Reason: muscle spasm) Qty: 10 0RF
acetaminophen 325 mg tablet
975 mg PO Q4HPRN PRN (Reason: mild pain,headache,temp >101F )
Discontinued
potassium chloride 10 mEq capsule, extended release
10 meq PO DAILY Qty: 7 0RF
metoprolol succinate [Toprol XL] 25 mg tablet extended release 24 hr
50 mg PO DAILY Qty: 30 1RF
furosemide [Lasix] 20 mg tablet
20 mg PO DAILY Qty: 7 0RF
Rx Instructions:
Take daily for 7 days, then stop
isosorbide mononitrate 30 mg tablet extended release 24 hr
30 mg PO
amlodipine 2.5 mg tablet
5 mg PO QPM
Discharge Orders:
Discharge Patient (As Directed); Ordered 05/09/25
Ordered By: Sharon Hernandez
Care Plan Goals
Care Plan Goals:
Problem: Readiness for enhanced knowledge related to diagnosis and treatment plan
Goal: Understand your diagnosis and treatment plan needs, including medications if applicable.
Instructions: Know your diagnosis, underlying causes and treatment plan options, including medications if applicable. Consult with your health care team to learn about your diagnosis and treatment plan, including medications if applicable.
Discharge Date and Time
Print Language: SETSWA[place]
[2025-05-09 11:37] VITALS: BP 110/63
[2025-05-09 11:38] VITALS: BP 109/66
[2025-05-09] MEDS: FLUZONE (6 mos+) 2025-2026 FORMULA 0.5 ML IM (12:34)
--- NOTE | 2025-05-09 15:38 | PTCARENOTE ---
Pt was discharged to home with family. rug dyer helper and piv removed. Instructions were discussed with pt and family verbalized understanding. Pt escorted out by wheelchair with PCT.
== END 2025-05-09 15:44 | disposition home or self-care (01) ==
LOC: IVU 17:06
PROVIDERS: Clinical Nurse Specialist Acute Care; ADMITTING PHYSICIAN Student in an Organized Health Care Education/Training Program; ATTENDING PHYSICIAN Thoracic Surgery (Cardiothoracic Vascular Surgery); EMERGENCY PHYSICIAN Student in an Organized Health Care Education/Training Program; FAMILY PHYSICIAN Family Medicine; OTHER PHYSICIAN Internal Medicine Cardiovascular Disease
DX: I95.1 Orthostatic hypotension (principal); R06.02 Shortness of breath; I11.0 Hypertensive heart disease with heart failure; E78.2 Mixed hyperlipidemia; M25.511 Pain in right shoulder; M54.9 Dorsalgia, unspecified; I25.10 Atherosclerotic heart disease of native coronary artery without angina pectoris; Z11.52 Encounter for screening for COVID-19; Z23 Encounter for immunization; Z79.899 Other long term (current) drug therapy; K21.9 Gastro-esophageal reflux disease without esophagitis; E66.812 Obesity, class 2; Z68.35 Body mass index [BMI] 35.0-35.9, adult; I5A Non-ischemic myocardial injury (non-traumatic); W19.XXXA Unspecified fall, initial encounter; Z79.02 Long term (current) use of antithrombotics/antiplatelets; Z79.4 Long term (current) use of insulin; E10.9 Type 1 diabetes mellitus without complications; Z91.148 Patient's other noncompliance with medication regimen for other reason; Z99.81 Dependence on supplemental oxygen
CPT/HCPCS: 70450; 71046; 73030; 74177; 80048; 80053; 82330; 82962; 83735; 83880; 84484; 85025; 85027; 85610; 85652; 87502; 87811; 90656; 93005; 93308; 94640; 99285; G0008; G0378; Q9950; Q9967

== ENCOUNTER → 2025-06-17 10:52 | Outpatient (REF) | payer OTHER, SELFPAY | LOC: HWRCS 10:52 | PROVIDERS: ATTENDING PHYSICIAN Internal Medicine Interventional Cardiology; FAMILY PHYSICIAN Family Medicine | DX: I25.2 Old myocardial infarction (principal) | CPT/HCPCS: 93306 ==

== ENCOUNTER 2025-07-12 11:52 | Outpatient (RCR) | payer OTHER, SELFPAY ==
[2025-06-24 09:49] LABS: Glucose - Point of Care 213 mg/dl (70-99)
[2025-06-24 10:25] LABS: Glucose - Point of Care 202 mg/dl (70-99)
[2025-06-28 11:07] LABS: Glucose - Point of Care 180 mg/dl (70-99)
[2025-06-28 11:58] LABS: Glucose - Point of Care 201 mg/dl (70-99)
[2025-06-30 11:13] LABS: Glucose - Point of Care 165 mg/dl (70-99)
[2025-06-30 12:00] LABS: Glucose - Point of Care 132 mg/dl (70-99)
[2025-07-02 10:55] LABS: Glucose - Point of Care 204 mg/dl (70-99)
[2025-07-02 11:44] LABS: Glucose - Point of Care 195 mg/dl (70-99)
[2025-07-05 11:05] LABS: Glucose - Point of Care 165 mg/dl (70-99)
[2025-07-05 11:57] LABS: Glucose - Point of Care 141 mg/dl (70-99)
[2025-07-07 10:57] LABS: Glucose - Point of Care 130 mg/dl (70-99)
[2025-07-07 11:52] LABS: Glucose - Point of Care 137 mg/dl (70-99)
== END 2025-07-12 23:59 | disposition home or self-care (01) ==
LOC: CRHB 11:52
PROVIDERS: ATTENDING PHYSICIAN Internal Medicine Interventional Cardiology
DX: Z95.1 Presence of aortocoronary bypass graft (principal); I25.10 Atherosclerotic heart disease of native coronary artery without angina pectoris (principal)
CPT/HCPCS: 82962; 93797; 93798